=== PATIENT | female | born 1970 | race African-American/Black ===

== ENCOUNTER 2020-06-23 13:06 | Inpatient (IN) ==
[2020-06-23] MEDS ORDERED: ONDANSETRON 4 MG/2 ML VIAL IV STA (14:35)
[2020-06-23] MEDS ORDERED: HYDROmorphone 2 MG/1 ML VIAL IV STA (14:35)
[2020-06-23] MEDS ORDERED: PIPERACILLIN/TAZOBACTAM 3,375 MG in SODIUM CHLORIDE 0.9% 100 ML IV STA (14:35)
[2020-06-23 15:02] LABS: Basophils # 0.1 10*3/uL (0.0-0.2); Basophils % 0.4 % (0.0-0.8); Eosinophils # 0.1 10*3/uL (0.0-0.87); Eosinophils % 0.6 % (0.00-10.9); Hematocrit 28.1 VOL% (35.7-47.0); Hemoglobin 9.5 GM/DL (12.0-16.0); Immature Granulocytes % 0.3 %; Immature Granulocytes Absolute 0.04 #; Lymphocytes # 2.2 10*3/uL (1.4-4.0); Lymphocytes % 17.7 % (21.3-54.2); Mean Corpuscular HGB Conc 33.8 GM/DL (32-36); Mean Corpuscular Volume 87.8 FL (87-102); Mean Platelet Volume 9.8 FL (9.6-12.0); Monocytes % 4.9 % (1.7-12.7); Neutrophils % 76.1 % (38.7-73.9); Platelet Count 291 T/CUMM (130-400); Red Cell Distribution Width 12.6 % (9.3-17.3); White Blood Count 12.6 T/CUMM (4-12)
[2020-06-23 15:16] LABS: Calcium 8.3 MG/DL (8.5-10.1); Osmolality,Calculated 288.7 MOS/KG (273-304); Potassium 3.8 MMOL/L (3.5-5.1)
[2020-06-23] MEDS ORDERED: INSULIN LISPRO 100 UNIT/ML SUBCUT STA (15:21)
[2020-06-23] MEDS ORDERED: ZALEPLON 5 MG CAPSULE PO PRN (15:36)
[2020-06-23] MEDS ORDERED: GLUCAGON 1 MG VIAL IM PRN (15:36)
[2020-06-23] MEDS ORDERED: DEXTROSE 50% 25 GM/50 ML VIAL IV PRN (15:36)
[2020-06-23] MEDS ORDERED: ONDANSETRON 4 MG/2 ML VIAL IV PRN (15:36)
[2020-06-23] MEDS ORDERED: ENOXAPARIN 40 MG/0.4 ML SYRINGE SUBCUT SCH (16:00)
[2020-06-23] MEDS: HYDROmorphone 2 MG/1 ML VIAL IV PRN ×2 (18:09→22:05)
[2020-06-23] MEDS: INSULIN REGULAR 100 UNIT/ML SUBCUT SCH ×2 (18:35→21:09)
[2020-06-23] MEDS: PIPERACILLIN/TAZOBACTAM 3,375 MG in SODIUM CHLORIDE 0.9% 100 ML IV SCH (22:05)
[2020-06-24] MEDS: HYDROmorphone 2 MG/1 ML VIAL IV PRN ×7 (02:47→19:34)
[2020-06-24 05:32] LABS: Basophils # 0.1 10*3/uL (0.0-0.2); Basophils % 0.5 % (0.0-0.8); Eosinophils # 0.2 10*3/uL (0.0-0.87); Eosinophils % 1.5 % (0.00-10.9); Hematocrit 30.6 VOL% (35.7-47.0); Immature Granulocytes % 0.4 %; Immature Granulocytes Absolute 0.04 #; Lymphocytes # 3.1 10*3/uL (1.4-4.0); Lymphocytes % 28.9 % (21.3-54.2); Mean Corpuscular HGB Conc 32.7 GM/DL (32-36); Mean Corpuscular Volume 90.3 FL (87-102); Mean Platelet Volume 9.5 FL (9.6-12.0); Neutrophils % 61.7 % (38.7-73.9); Platelet Count 309 T/CUMM (130-400); Red Blood Count 3.39 MC/CUMM (3.8-5.5); Red Cell Distribution Width 12.7 % (9.3-17.3); White Blood Count 10.8 T/CUMM (4-12)
[2020-06-24 05:52] LABS: Hypochromasia 1+; Microcytosis 1+; Platelet Estimate Adequate
[2020-06-24 05:59] LABS: Albumin 2.1 G/DL (3.4-5.0); Bilirubin,Total 0.7 MG/DL (0.2-1.0); Calcium 8.8 MG/DL (8.5-10.1); Osmolality,Calculated 274.8 MOS/KG (273-304); Potassium 3.8 MMOL/L (3.5-5.1); Total Protein 7.4 G/DL (6.4-8.2)
[2020-06-24] MEDS: PIPERACILLIN/TAZOBACTAM 3,375 MG in SODIUM CHLORIDE 0.9% 100 ML IV SCH ×2 (05:59→15:22)
[2020-06-24] MEDS: INSULIN REGULAR 100 UNIT/ML SUBCUT SCH ×4 (08:06→21:49)
[2020-06-24] MEDS ORDERED: VANCOMYCIN INJ 1,000 MG in SODIUM CHLORIDE 0.9% 250 ML IV SCH (08:30)
[2020-06-24] MEDS ORDERED: BACLOFEN 10 MG TABLET PO PRN (10:18)
[2020-06-24] MEDS ORDERED: ALBUTEROL 2.5 MG/3 ML NEB RESP TX PRN (10:18)
[2020-06-24] MEDS: VANCOMYCIN INJ 1,750 MG in SODIUM CHLORIDE 0.9% 500 ML IV SCH ×2 (10:18→21:50)
[2020-06-24] MEDS ORDERED: fentaNYL 100 MCG/2 ML VIAL ONE (12:11)
[2020-06-24] MEDS ORDERED: LIDOCAINE 2% 5 ML VIAL ONE (12:21)
[2020-06-24] MEDS ORDERED: MIDAZOLAM 2 MG/2 ML VIAL ONE (12:22)
[2020-06-24] MEDS ORDERED: LACTATED RINGERS 1,000 ML IV SCH (12:30)
[2020-06-24] MEDS ORDERED: PHENYLEPHRINE 1 MG/10 ML SYRINGE IV ONE (12:31)
[2020-06-24] MEDS ORDERED: ONDANSETRON 4 MG/2 ML VIAL ONE (12:31)
[2020-06-24] MEDS ORDERED: propofoL 200 MG/20 ML VIAL IV ONE (12:31)
[2020-06-24] MEDS ORDERED: SEVOFLURANE 1 UNIT/15 MINUTE INH ONE (12:31)
[2020-06-24] MEDS ORDERED: DEXTROSE 50% 25 GM/50 ML VIAL IV PRN (13:34)
[2020-06-24] MEDS ORDERED: ONDANSETRON 4 MG/2 ML VIAL IV PRN (13:36)
[2020-06-24] MEDS: PREGABALIN 100 MG CAPSULE PO SCH ×2 (15:21→21:48)
[2020-06-24] MEDS: FUROSEMIDE 40 MG TABLET PO SCH (15:22)
[2020-06-24] MEDS ORDERED: ENOXAPARIN 40 MG/0.4 ML SYRINGE SUBCUT SCH (21:00)
[2020-06-24] MEDS ORDERED: INSULIN GLARGINE 100 UNIT/ML SUBCUT SCH (21:00)
[2020-06-24] MEDS: tiZANidine 4 MG TABLET PO SCH (21:48)
[2020-06-24] MEDS: INSULIN GLARGINE 100 UNIT/ML SUBCUT SCH (21:50)
[2020-06-25] MEDS: PIPERACILLIN/TAZOBACTAM 3,375 MG in SODIUM CHLORIDE 0.9% 100 ML IV SCH ×2 (02:05→11:09)
[2020-06-25] MEDS: HYDROmorphone 2 MG/1 ML VIAL IV PRN ×4 (05:25→20:00)
[2020-06-25 05:43] LABS: Basophils % 0.4 % (0.0-0.8); Eosinophils # 0.2 10*3/uL (0.0-0.87); Eosinophils % 1.5 % (0.00-10.9); Hematocrit 28.6 VOL% (35.7-47.0); Hemoglobin 8.9 GM/DL (12.0-16.0); Immature Granulocytes % 0.7 %; Immature Granulocytes Absolute 0.07 #; Lymphocytes # 2.7 10*3/uL (1.4-4.0); Lymphocytes % 26.5 % (21.3-54.2); Mean Corpuscular HGB Conc 31.1 GM/DL (32-36); Mean Corpuscular Volume 92.3 FL (87-102); Mean Platelet Volume 9.4 FL (9.6-12.0); Monocytes % 6.3 % (1.7-12.7); Neutrophils % 64.6 % (38.7-73.9); Platelet Count 251 T/CUMM (130-400); Red Cell Distribution Width 13.1 % (9.3-17.3); White Blood Count 10.1 T/CUMM (4-12)
[2020-06-25 06:01] LABS: Calcium 8.4 MG/DL (8.5-10.1); Osmolality,Calculated 276.7 MOS/KG (273-304)
[2020-06-25 06:15] LABS: Eosinophils 1 % (0-10); Hypochromasia Slight; Lymphocytes 27 % (20-55); Platelet Estimate Normal; Segmented Neutrophils 66 % (50-85); Total Cells Counted 100
[2020-06-25] MEDS: INSULIN REGULAR 100 UNIT/ML SUBCUT SCH ×4 (07:50→21:12)
[2020-06-25] MEDS: FUROSEMIDE 40 MG TABLET PO SCH ×2 (09:48→16:45)
[2020-06-25] MEDS: PANTOPRAZOLE 40 MG TABLET PO SCH (09:48)
[2020-06-25] MEDS: PREGABALIN 100 MG CAPSULE PO SCH ×3 (09:49→21:12)
[2020-06-25] MEDS: LIDOCAINE 5% PATCH TRANSDERM SCH (09:51)
[2020-06-25] MEDS: SODIUM HYPOCHLORITE 0.25% IRRIG 473 ML BOTTLE TOP SCH (11:08)
[2020-06-25] MEDS ORDERED: DEXTROSE 50% 25 GM/50 ML VIAL IV PRN (11:40)
[2020-06-25] MEDS: MEROPENEM 500 MG in SODIUM CHLORIDE 0.9% 100 ML IV SCH (17:09)
[2020-06-25] MEDS: VANCOMYCIN INJ 1,750 MG in SODIUM CHLORIDE 0.9% 500 ML IV SCH (17:12)
[2020-06-25] MEDS ORDERED: BISACODYL 5 MG TABLET PO PRN (19:37)
[2020-06-25] MEDS: DOCUSATE SODIUM 100 MG CAPSULE PO SCH (21:11)
[2020-06-25] MEDS: tiZANidine 4 MG TABLET PO SCH (21:12)
[2020-06-25] MEDS: INSULIN GLARGINE 100 UNIT/ML SUBCUT SCH (21:13)
[2020-06-25] MEDS: NYSTATIN CREAM 15 GM TUBE TOP SCH (21:17)
[2020-06-26] MEDS: MEROPENEM 500 MG in SODIUM CHLORIDE 0.9% 100 ML IV SCH ×5 (00:16→23:46)
[2020-06-26] MEDS: HYDROmorphone 2 MG/1 ML VIAL IV PRN ×8 (05:14→23:53)
[2020-06-26 05:27] LABS: Basophils % 0.4 % (0.0-0.8); Eosinophils # 0.2 10*3/uL (0.0-0.87); Eosinophils % 2.7 % (0.00-10.9); Hematocrit 27.2 VOL% (35.7-47.0); Immature Granulocytes % 0.3 %; Immature Granulocytes Absolute 0.02 #; Lymphocytes # 2.5 10*3/uL (1.4-4.0); Lymphocytes % 33.2 % (21.3-54.2); Mean Corpuscular HGB Conc 33.1 GM/DL (32-36); Mean Corpuscular Volume 89.5 FL (87-102); Mean Platelet Volume 9.4 FL (9.6-12.0); Monocytes % 9.2 % (1.7-12.7); Neutrophils % 54.2 % (38.7-73.9); Platelet Count 205 T/CUMM (130-400); Red Blood Count 3.04 MC/CUMM (3.8-5.5); Red Cell Distribution Width 13.2 % (9.3-17.3); White Blood Count 7.4 T/CUMM (4-12)
[2020-06-26 05:45] LABS: Calcium 7.9 MG/DL (8.5-10.1); Osmolality,Calculated 277.1 MOS/KG (273-304); Potassium 3.9 MMOL/L (3.5-5.1)
[2020-06-26 06:10] LABS: Hypochromasia Slight
[2020-06-26 06:11] LABS: Microcytosis 1+; Platelet Estimate Normal
[2020-06-26] MEDS ORDERED: INSULIN NPH 100 UNIT/ML SUBCUT ONE (06:16)
[2020-06-26] MEDS: PANTOPRAZOLE 40 MG TABLET PO SCH (09:17)
[2020-06-26] MEDS: PREGABALIN 100 MG CAPSULE PO SCH ×3 (09:17→21:13)
[2020-06-26] MEDS: DOCUSATE SODIUM 100 MG CAPSULE PO SCH ×2 (09:18→21:13)
[2020-06-26] MEDS: ENOXAPARIN 40 MG/0.4 ML SYRINGE SUBCUT SCH (09:18)
[2020-06-26] MEDS: FUROSEMIDE 40 MG TABLET PO SCH ×2 (09:18→16:47)
[2020-06-26] MEDS: SODIUM HYPOCHLORITE 0.25% IRRIG 473 ML BOTTLE TOP SCH (09:19)
[2020-06-26] MEDS: NYSTATIN CREAM 15 GM TUBE TOP SCH ×2 (09:20→21:15)
[2020-06-26] MEDS: LIDOCAINE 5% PATCH TRANSDERM SCH (09:20)
[2020-06-26] MEDS: INSULIN REGULAR 100 UNIT/ML SUBCUT SCH ×4 (09:59→21:14)
[2020-06-26] MEDS: tiZANidine 4 MG TABLET PO SCH (21:13)
[2020-06-26] MEDS: INSULIN GLARGINE 100 UNIT/ML SUBCUT SCH (21:14)
[2020-06-26] MEDS: POLYETHYLENE GLYCOL POWDER 17 GM PACK PO SCH (21:15)
[2020-06-27] MEDS: HYDROmorphone 2 MG/1 ML VIAL IV PRN ×6 (05:07→21:39)
[2020-06-27] MEDS: MEROPENEM 500 MG in SODIUM CHLORIDE 0.9% 100 ML IV SCH ×4 (05:07→22:14)
[2020-06-27 06:45] LABS: Basophils % 0.5 % (0.0-0.8); Eosinophils # 0.2 10*3/uL (0.0-0.87); Eosinophils % 2.9 % (0.00-10.9); Hematocrit 30.7 VOL% (35.7-47.0); Hemoglobin 9.8 GM/DL (12.0-16.0); Immature Granulocytes % 0.2 %; Immature Granulocytes Absolute 0.02 #; Lymphocytes # 3.5 10*3/uL (1.4-4.0); Lymphocytes % 41.1 % (21.3-54.2); Mean Corpuscular HGB Conc 31.9 GM/DL (32-36); Mean Corpuscular Volume 90.6 FL (87-102); Mean Platelet Volume 9.7 FL (9.6-12.0); Monocytes % 7.9 % (1.7-12.7); Neutrophils % 47.4 % (38.7-73.9); Platelet Count 248 T/CUMM (130-400); Red Blood Count 3.39 MC/CUMM (3.8-5.5); Red Cell Distribution Width 13.4 % (9.3-17.3); White Blood Count 8.4 T/CUMM (4-12)
[2020-06-27 07:02] LABS: Calcium 8.5 MG/DL (8.5-10.1); Osmolality,Calculated 273.2 MOS/KG (273-304); Potassium 3.5 MMOL/L (3.5-5.1)
[2020-06-27 07:16] LABS: Hypochromasia 1+; Microcytosis 1+; Platelet Estimate Normal
[2020-06-27] MEDS: INSULIN REGULAR 100 UNIT/ML SUBCUT SCH ×4 (08:24→21:38)
[2020-06-27] MEDS: PREGABALIN 100 MG CAPSULE PO SCH ×3 (08:26→21:37)
[2020-06-27] MEDS: SODIUM HYPOCHLORITE 0.25% IRRIG 473 ML BOTTLE TOP SCH (08:26)
[2020-06-27] MEDS: CHOLECALCIFEROL 1,000 UNIT TABLET PO SCH (08:26)
[2020-06-27] MEDS: ENOXAPARIN 40 MG/0.4 ML SYRINGE SUBCUT SCH (08:26)
[2020-06-27] MEDS: FUROSEMIDE 40 MG TABLET PO SCH ×2 (08:26→15:24)
[2020-06-27] MEDS: PANTOPRAZOLE 40 MG TABLET PO SCH (08:26)
[2020-06-27] MEDS: DOCUSATE SODIUM 100 MG CAPSULE PO SCH ×2 (08:26→21:37)
[2020-06-27] MEDS: POLYETHYLENE GLYCOL POWDER 17 GM PACK PO SCH ×2 (08:27→21:40)
[2020-06-27] MEDS: NYSTATIN CREAM 15 GM TUBE TOP SCH ×2 (08:27→21:40)
[2020-06-27] MEDS: LIDOCAINE 5% PATCH TRANSDERM SCH (08:27)
[2020-06-27] MEDS: tiZANidine 4 MG TABLET PO SCH (21:37)
[2020-06-27] MEDS: INSULIN GLARGINE 100 UNIT/ML SUBCUT SCH (21:38)
[2020-06-28] MEDS: HYDROmorphone 2 MG/1 ML VIAL IV PRN ×5 (01:13→21:36)
[2020-06-28 05:32] LABS: Basophils # 0.1 10*3/uL (0.0-0.2); Basophils % 0.6 % (0.0-0.8); Eosinophils # 0.3 10*3/uL (0.0-0.87); Eosinophils % 3.5 % (0.00-10.9); Hematocrit 27.1 VOL% (35.7-47.0); Hemoglobin 8.7 GM/DL (12.0-16.0); Immature Granulocytes % 0.2 %; Immature Granulocytes Absolute 0.02 #; Lymphocytes # 3.4 10*3/uL (1.4-4.0); Lymphocytes % 41.5 % (21.3-54.2); Mean Corpuscular HGB Conc 32.1 GM/DL (32-36); Mean Corpuscular Volume 92.2 FL (87-102); Mean Platelet Volume 9.7 FL (9.6-12.0); Monocytes % 9.6 % (1.7-12.7); Neutrophils % 44.6 % (38.7-73.9); Platelet Count 267 T/CUMM (130-400); Red Blood Count 2.94 MC/CUMM (3.8-5.5); Red Cell Distribution Width 13.6 % (9.3-17.3); White Blood Count 8.2 T/CUMM (4-12)
[2020-06-28] MEDS: MEROPENEM 500 MG in SODIUM CHLORIDE 0.9% 100 ML IV SCH ×4 (05:42→22:23)
[2020-06-28 05:50] LABS: Calcium 8.3 MG/DL (8.5-10.1); Potassium 3.9 MMOL/L (3.5-5.1)
[2020-06-28] MEDS: PANTOPRAZOLE 40 MG TABLET PO SCH (08:45)
[2020-06-28] MEDS: DOCUSATE SODIUM 100 MG CAPSULE PO SCH ×2 (08:45→21:35)
[2020-06-28] MEDS: FUROSEMIDE 40 MG TABLET PO SCH ×2 (08:45→15:29)
[2020-06-28] MEDS: CHOLECALCIFEROL 1,000 UNIT TABLET PO SCH (08:45)
[2020-06-28] MEDS: INSULIN REGULAR 100 UNIT/ML SUBCUT SCH ×4 (08:45→21:36)
[2020-06-28] MEDS: PREGABALIN 100 MG CAPSULE PO SCH ×3 (08:45→21:35)
[2020-06-28] MEDS: ENOXAPARIN 40 MG/0.4 ML SYRINGE SUBCUT SCH (08:45)
[2020-06-28] MEDS: POLYETHYLENE GLYCOL POWDER 17 GM PACK PO SCH ×2 (08:46→21:22)
[2020-06-28] MEDS: LIDOCAINE 5% PATCH TRANSDERM SCH (08:46)
[2020-06-28] MEDS: NYSTATIN CREAM 15 GM TUBE TOP SCH ×2 (08:46→21:37)
[2020-06-28] MEDS: SODIUM HYPOCHLORITE 0.25% IRRIG 473 ML BOTTLE TOP SCH (08:46)
[2020-06-28] MEDS ORDERED: METOPROLOL TARTRATE 5 MG/5 ML VIAL IV ONE (09:34)
[2020-06-28 10:36] LABS: Eosinophils 4 % (0-10); Lymphocytes 37 % (20-55); Platelet Estimate Normal; Segmented Neutrophils 48 % (50-85); Total Cells Counted 100
[2020-06-28 10:37] LABS: Anisocytosis Slight; Atypical Lymphocytes Few; Macrocytosis Slight
[2020-06-28] MEDS: carvediloL 3.125 MG TABLET PO SCH (21:35)
[2020-06-28] MEDS: tiZANidine 4 MG TABLET PO SCH (21:35)
[2020-06-28] MEDS: INSULIN GLARGINE 100 UNIT/ML SUBCUT SCH (21:35)
[2020-06-29] MEDS: HYDROmorphone 2 MG/1 ML VIAL IV PRN ×3 (04:37→21:22)
[2020-06-29] MEDS: MEROPENEM 500 MG in SODIUM CHLORIDE 0.9% 100 ML IV SCH ×4 (04:38→23:54)
[2020-06-29 05:12] LABS: Basophils % 0.4 % (0.0-0.8); Eosinophils # 0.3 10*3/uL (0.0-0.87); Hematocrit 24.8 VOL% (35.7-47.0); Hemoglobin 8.2 GM/DL (12.0-16.0); Immature Granulocytes % 0.6 %; Immature Granulocytes Absolute 0.04 #; Lymphocytes # 2.7 10*3/uL (1.4-4.0); Mean Corpuscular HGB Conc 33.1 GM/DL (32-36); Mean Corpuscular Volume 90.5 FL (87-102); Monocytes % 10.2 % (1.7-12.7); Neutrophils % 44.8 % (38.7-73.9); Platelet Count 291 T/CUMM (130-400); Red Blood Count 2.74 MC/CUMM (3.8-5.5); Red Cell Distribution Width 13.7 % (9.3-17.3); White Blood Count 6.7 T/CUMM (4-12)
[2020-06-29 05:39] LABS: Calcium 8.1 MG/DL (8.5-10.1); Osmolality,Calculated 283.5 MOS/KG (273-304); Potassium 3.7 MMOL/L (3.5-5.1)
[2020-06-29 06:42] LABS: Band Neutrophils 1 % (0-10); Eosinophils 5 % (0-10); Lymphocytes 41 % (20-55); Platelet Estimate Normal; Segmented Neutrophils 46 % (50-85); Total Cells Counted 100
[2020-06-29 06:43] LABS: Anisocytosis Slight; Macrocytosis Slight
[2020-06-29] MEDS: LIDOCAINE 5% PATCH TRANSDERM SCH (09:10)
[2020-06-29] MEDS: INSULIN REGULAR 100 UNIT/ML SUBCUT SCH ×4 (09:12→22:54)
[2020-06-29] MEDS: ENOXAPARIN 40 MG/0.4 ML SYRINGE SUBCUT SCH (09:13)
[2020-06-29] MEDS: PANTOPRAZOLE 40 MG TABLET PO SCH (09:14)
[2020-06-29] MEDS: POLYETHYLENE GLYCOL POWDER 17 GM PACK PO SCH ×2 (09:14→21:03)
[2020-06-29] MEDS: CHOLECALCIFEROL 1,000 UNIT TABLET PO SCH (09:14)
[2020-06-29] MEDS: DOCUSATE SODIUM 100 MG CAPSULE PO SCH ×2 (09:14→21:02)
[2020-06-29] MEDS: carvediloL 3.125 MG TABLET PO SCH ×2 (09:14→21:02)
[2020-06-29] MEDS: FUROSEMIDE 40 MG TABLET PO SCH (09:15)
[2020-06-29] MEDS: PREGABALIN 100 MG CAPSULE PO SCH ×3 (09:15→21:02)
[2020-06-29] MEDS: NYSTATIN CREAM 15 GM TUBE TOP SCH ×2 (09:17→21:21)
[2020-06-29] MEDS: SODIUM HYPOCHLORITE 0.25% IRRIG 473 ML BOTTLE TOP SCH (09:17)
[2020-06-29] MEDS ORDERED: FUROSEMIDE 20 MG/2 ML VIAL IV ONE ×2 (09:22)
[2020-06-29] MEDS ORDERED: ACETAMINOPHEN 325 MG TABLET PO PRN (09:24)
[2020-06-29] MEDS: POTASSIUM CHLORIDE 20 MEQ TABLET PO SCH (21:02)
[2020-06-29] MEDS: tiZANidine 4 MG TABLET PO SCH (21:03)
[2020-06-29] MEDS: INSULIN GLARGINE 100 UNIT/ML SUBCUT SCH (21:21)
[2020-06-30] MEDS: HYDROmorphone 2 MG/1 ML VIAL IV PRN (05:19)
[2020-06-30] MEDS: MEROPENEM 500 MG in SODIUM CHLORIDE 0.9% 100 ML IV SCH ×2 (05:20→12:23)
[2020-06-30 06:10] LABS: Basophils # 0.1 10*3/uL (0.0-0.2); Basophils % 0.7 % (0.0-0.8); Eosinophils # 0.4 10*3/uL (0.0-0.87); Eosinophils % 4.7 % (0.00-10.9); Hemoglobin 8.6 GM/DL (12.0-16.0); Immature Granulocytes % 0.3 %; Immature Granulocytes Absolute 0.02 #; Lymphocytes # 3.6 10*3/uL (1.4-4.0); Lymphocytes % 48.2 % (21.3-54.2); Mean Corpuscular HGB Conc 31.9 GM/DL (32-36); Mean Corpuscular Volume 92.8 FL (87-102); Mean Platelet Volume 9.6 FL (9.6-12.0); Monocytes % 9.7 % (1.7-12.7); Neutrophils % 36.4 % (38.7-73.9); Platelet Count 372 T/CUMM (130-400); Red Blood Count 2.91 MC/CUMM (3.8-5.5); White Blood Count 7.4 T/CUMM (4-12)
[2020-06-30 06:39] LABS: Calcium 8.5 MG/DL (8.5-10.1); Osmolality,Calculated 277.5 MOS/KG (273-304); Potassium 3.8 MMOL/L (3.5-5.1)
[2020-06-30 06:42] LABS: Eosinophils 7 % (0-10); Hypochromasia 1+; Lymphocytes 56 % (20-55); Microcytosis 1+; Platelet Estimate Adequate; Segmented Neutrophils 35 % (50-85); Total Cells Counted 100
[2020-06-30 07:19] LABS: Bilirubin,Urine Negative (Negative); Blood, Urine Negative (Negative); Glucose,Urine (UA) Negative (Negative); Ketones,Urine Negative (Negative); Mucus,Urine Occasional /LPF (Occasional); Nitrite,Urine Negative (Negative); Protein,Urine Negative; RBC,Urine 5 /HPF (0-4); Squamous Epithelial Cell,Urine Moderate /HPF (0-10); Urine Appearance Slightly Hazy (Clear); Urine Color Yellow (Yellow); Urine Specific Gravity 1.012 (1.001-1.035); Urine Urobilinogen < 2.0 EU/DL (0.2-1.0)
[2020-06-30] MEDS: INSULIN REGULAR 100 UNIT/ML SUBCUT SCH ×2 (08:49→12:40)
[2020-06-30] MEDS ORDERED: carvediloL 3.125 MG TABLET PO SCH (09:00)
[2020-06-30] MEDS: FUROSEMIDE 40 MG TABLET PO SCH (09:26)
[2020-06-30] MEDS: CHOLECALCIFEROL 1,000 UNIT TABLET PO SCH (09:26)
[2020-06-30] MEDS: ENOXAPARIN 40 MG/0.4 ML SYRINGE SUBCUT SCH (09:27)
[2020-06-30] MEDS: POTASSIUM CHLORIDE 20 MEQ TABLET PO SCH (09:27)
[2020-06-30] MEDS: PREGABALIN 100 MG CAPSULE PO SCH ×2 (09:27→14:29)
[2020-06-30] MEDS: DOCUSATE SODIUM 100 MG CAPSULE PO SCH (09:27)
[2020-06-30] MEDS: PANTOPRAZOLE 40 MG TABLET PO SCH (09:27)
[2020-06-30] MEDS: LIDOCAINE 5% PATCH TRANSDERM SCH (09:29)
[2020-06-30] MEDS: SODIUM HYPOCHLORITE 0.25% IRRIG 473 ML BOTTLE TOP SCH (09:30)
[2020-06-30] MEDS: POLYETHYLENE GLYCOL POWDER 17 GM PACK PO SCH (09:31)
[2020-06-30 12:44] VITALS: BP 131/43
[2020-06-30] MEDS: NYSTATIN CREAM 15 GM TUBE TOP SCH (14:30)
== END 2020-06-30 16:50 | DRG 305 ==
LOC: N.ED 13:06 → N.EDINP 15:36 → SUATTDRO 15:36 → N.3E 16:30
PROVIDERS: ADMIT Student in an Organized Health Care Education/Training Program; ATTEND Internal Medicine

== ENCOUNTER 2020-07-29 07:33 | Inpatient (IN) ==
[2020-07-29] MEDS ORDERED: ONDANSETRON 4 MG/2 ML VIAL IV STA (08:10)
[2020-07-29 08:38] LABS: Bacteria,Urine Occasional /HPF (Few); Bilirubin,Urine Negative (Negative); Blood, Urine Negative (Negative); Glucose,Urine (UA) >=500 mg/dL (Negative); Ketones,Urine 20 mg/dL (Negative); Mucus,Urine Occasional /LPF (Occasional); Nitrite,Urine Negative (Negative); Protein,Urine 100 MG/DL; RBC,Urine 3 /HPF (0-4); Squamous Epithelial Cell,Urine Many /HPF (0-10); Urine Appearance CLOUDY (Clear); Urine Color Yellow (Yellow); Urine Specific Gravity 1.033 (1.001-1.035)
[2020-07-29] MEDS ORDERED: DILTIAZEM 50 MG/10 ML VIAL IV STA (08:48)
[2020-07-29] MEDS ORDERED: MAGNESIUM SULF RIDER 2 GM/50 ML PREMIX IV STA (08:49)
[2020-07-29 09:08] LABS: Basophils % 0.2 % (0.0-0.8); Hematocrit 27.8 VOL% (35.7-47.0); Hemoglobin 8.9 GM/DL (12.0-16.0); Immature Granulocytes % 1.1 %; Immature Granulocytes Absolute 0.26 #; Lymphocytes # 1.8 10*3/uL (1.4-4.0); Lymphocytes % 7.8 % (21.3-54.2); Mean Corpuscular Volume 85.3 FL (87-102); Mean Platelet Volume 9.1 FL (9.6-12.0); Monocytes % 6.5 % (1.7-12.7); Neutrophils % 84.4 % (38.7-73.9); Platelet Count 623 T/CUMM (130-400); Red Blood Count 3.26 MC/CUMM (3.8-5.5); Red Cell Distribution Width 13.1 % (9.3-17.3); White Blood Count 23.1 T/CUMM (4-12)
[2020-07-29] MEDS: DILTIAZEM INJ 100 MG in SODIUM CHLORIDE 0.9% 100 ML IV SCH (09:19)
[2020-07-29 09:23] LABS: Eosinophils 1 % (0-10); Hypochromasia 1+; Lymphocytes 9 % (20-55); Microcytosis 1+; Platelet Estimate Increased; Segmented Neutrophils 84 % (50-85); Total Cells Counted 100
[2020-07-29 09:31] LABS: Albumin 2.1 G/DL (3.4-5.0); Bilirubin,Total 0.5 MG/DL (0.2-1.0); Calcium 9.1 MG/DL (8.5-10.1); Osmolality,Calculated 276.8 MOS/KG (273-304); Potassium 3.5 MMOL/L (3.5-5.1); Total Protein 8.5 G/DL (6.4-8.2)
[2020-07-29] MEDS ORDERED: KETOROLAC 30 MG/1 ML VIAL IV STA (09:57)
[2020-07-29] MEDS ORDERED: KETOROLAC 30 MG/1 ML VIAL ONE (09:58)
[2020-07-29] MEDS ORDERED: GLUCAGON 1 MG VIAL IM PRN (12:52)
[2020-07-29] MEDS ORDERED: MAGNESIUM SULF RIDER 4 GM/100 ML PREMIX IV PRN (12:52)
[2020-07-29] MEDS ORDERED: MAGNESIUM SULF RIDER 2 GM/50 ML PREMIX IV PRN (12:52)
[2020-07-29] MEDS ORDERED: DEXTROSE 50% 25 GM/50 ML VIAL IV PRN (12:52)
[2020-07-29] MEDS ORDERED: DICLOFENAC 1% GEL 100 GM TUBE TOP PRN (12:54)
[2020-07-29] MEDS ORDERED: PIPERACILLIN/TAZOBACTAM 3,375 MG VIAL IV ONE (16:36)
[2020-07-29] MEDS: PIPERACILLIN/TAZOBACTAM 3,375 MG in SODIUM CHLORIDE 0.9% 100 ML IV SCH (16:59)
[2020-07-29] MEDS ORDERED: ALBUTEROL 2.5 MG/3 ML NEB RESP TX PRN (17:42)
[2020-07-29] MEDS: INSULIN REGULAR 100 UNIT/ML SUBCUT SCH ×2 (18:22→21:38)
[2020-07-29] MEDS: carvediloL 3.125 MG TABLET PO SCH (21:25)
[2020-07-29] MEDS: PREGABALIN 100 MG CAPSULE PO SCH (21:25)
[2020-07-29] MEDS: PANTOPRAZOLE 40 MG TABLET PO SCH (21:26)
[2020-07-29] MEDS: POTASSIUM CHLORIDE 20 MEQ TABLET PO SCH (21:26)
[2020-07-29] MEDS: tiZANidine 4 MG TABLET PO SCH (21:26)
[2020-07-29] MEDS: FUROSEMIDE 40 MG TABLET PO SCH (21:27)
[2020-07-29] MEDS: INSULIN GLARGINE 100 UNIT/ML SUBCUT SCH (21:38)
[2020-07-30] MEDS: PIPERACILLIN/TAZOBACTAM 3,375 MG in SODIUM CHLORIDE 0.9% 100 ML IV SCH ×2 (00:14→06:08)
[2020-07-30 05:22] LABS: Basophils # 0.1 10*3/uL (0.0-0.2); Basophils % 0.3 % (0.0-0.8); Eosinophils # 0.2 10*3/uL (0.0-0.87); Eosinophils % 0.8 % (0.00-10.9); Hematocrit 24.7 VOL% (35.7-47.0); Hemoglobin 8.1 GM/DL (12.0-16.0); Immature Granulocytes % 0.8 %; Immature Granulocytes Absolute 0.17 #; Lymphocytes # 1.9 10*3/uL (1.4-4.0); Lymphocytes % 9.1 % (21.3-54.2); Mean Corpuscular HGB Conc 32.8 GM/DL (32-36); Mean Corpuscular Volume 85.5 FL (87-102); Mean Platelet Volume 9.3 FL (9.6-12.0); Monocytes % 6.2 % (1.7-12.7); Neutrophils % 82.8 % (38.7-73.9); Platelet Count 590 T/CUMM (130-400); Red Blood Count 2.89 MC/CUMM (3.8-5.5); Red Cell Distribution Width 13.2 % (9.3-17.3); White Blood Count 20.5 T/CUMM (4-12)
[2020-07-30 05:29] LABS: Albumin 1.8 G/DL (3.4-5.0); Bilirubin,Total 0.9 MG/DL (0.2-1.0); Calcium 8.6 MG/DL (8.5-10.1); Osmolality,Calculated 283.1 MOS/KG (273-304); Potassium 3.2 MMOL/L (3.5-5.1); Total Protein 7.4 G/DL (6.4-8.2)
[2020-07-30] MEDS: SODIUM CHLORIDE 0.9% 1,000 ML IV SCH ×2 (05:43→17:07)
[2020-07-30 05:49] LABS: Band Neutrophils 1 % (0-10); Hypochromasia 1+; Lymphocytes 13 % (20-55); Segmented Neutrophils 84 % (50-85); Total Cells Counted 100
[2020-07-30 05:50] LABS: Microcytosis 1+
[2020-07-30] MEDS: POTASSIUM CHLORIDE 20 MEQ TABLET PO PRN ×2 (06:08→18:16)
[2020-07-30] MEDS: POTASSIUM CHLORIDE 20 MEQ TABLET PO SCH ×2 (09:30→22:00)
[2020-07-30] MEDS: PREGABALIN 100 MG CAPSULE PO SCH ×3 (09:30→21:58)
[2020-07-30] MEDS: FUROSEMIDE 40 MG TABLET PO SCH (09:31)
[2020-07-30] MEDS: PANTOPRAZOLE 40 MG TABLET PO SCH ×2 (09:31→21:58)
[2020-07-30] MEDS: carvediloL 3.125 MG TABLET PO SCH ×2 (09:31→21:56)
[2020-07-30] MEDS: INSULIN REGULAR 100 UNIT/ML SUBCUT SCH ×4 (09:32→22:32)
[2020-07-30] MEDS: INSULIN GLARGINE 100 UNIT/ML SUBCUT SCH ×2 (09:33→22:34)
[2020-07-30] MEDS ORDERED: ENOXAPARIN 120 MG/0.8 ML SYRINGE SUBCUT ONE (14:51)
[2020-07-30] MEDS: SODIUM HYPOCHLORITE 0.25% IRRIG 473 ML BOTTLE TOP SCH (15:19)
[2020-07-30 15:41] LABS: Basophils % 0.2 % (0.0-0.8); Eosinophils # 0.2 10*3/uL (0.0-0.87); Hematocrit 26.7 VOL% (35.7-47.0); Hemoglobin 8.4 GM/DL (12.0-16.0); Immature Granulocytes % 1.1 %; Immature Granulocytes Absolute 0.24 #; Lymphocytes # 2.2 10*3/uL (1.4-4.0); Lymphocytes % 9.8 % (21.3-54.2); Mean Corpuscular HGB Conc 31.5 GM/DL (32-36); Mean Corpuscular Volume 86.7 FL (87-102); Mean Platelet Volume 9.2 FL (9.6-12.0); Monocytes % 5.8 % (1.7-12.7); Neutrophils % 82.1 % (38.7-73.9); Platelet Count 644 T/CUMM (130-400); Red Blood Count 3.08 MC/CUMM (3.8-5.5); Red Cell Distribution Width 13.2 % (9.3-17.3); White Blood Count 22.7 T/CUMM (4-12)
[2020-07-30 16:04] LABS: Lymphocytes 12 % (20-55); Segmented Neutrophils 83 % (50-85); Total Cells Counted 100
[2020-07-30 16:06] LABS: Anisocytosis Slight; Platelet Estimate Adequate
[2020-07-30] MEDS: MEROPENEM 500 MG in SODIUM CHLORIDE 0.9% 100 ML IV SCH ×2 (16:57→22:08)
[2020-07-30] MEDS: DILTIAZEM INJ 100 MG in SODIUM CHLORIDE 0.9% 100 ML IV SCH (17:08)
[2020-07-30] MEDS: tiZANidine 4 MG TABLET PO SCH (21:56)
[2020-07-30] MEDS ORDERED: NALOXONE 0.4 MG/ML VIAL IV ONE (22:43)
[2020-07-30] MEDS ORDERED: SODIUM CHLORIDE 0.9% 250 ML IV ONE (23:21)
[2020-07-30 23:30] LABS: Basophils # 0.1 10*3/uL (0.0-0.2); Basophils % 0.2 % (0.0-0.8); Eosinophils # 0.2 10*3/uL (0.0-0.87); Hematocrit 22.7 VOL% (35.7-47.0); Hemoglobin 7.3 GM/DL (12.0-16.0); Immature Granulocytes % 1.2 %; Immature Granulocytes Absolute 0.29 #; Lymphocytes # 3.2 10*3/uL (1.4-4.0); Lymphocytes % 13.9 % (21.3-54.2); Mean Corpuscular HGB Conc 32.2 GM/DL (32-36); Mean Corpuscular Volume 85.7 FL (87-102); Mean Platelet Volume 9.2 FL (9.6-12.0); Monocytes % 5.8 % (1.7-12.7); Neutrophils % 77.9 % (38.7-73.9); Platelet Count 583 T/CUMM (130-400); Red Blood Count 2.65 MC/CUMM (3.8-5.5); Red Cell Distribution Width 13.2 % (9.3-17.3); White Blood Count 23.2 T/CUMM (4-12)
[2020-07-30 23:38] LABS: INR 1.1; PT Patient Result 12.6 SECS (10.5-12.0); Partial Thromboplastin Time 32.2 SECS (23.9-33.8)
[2020-07-30 23:48] LABS: Albumin 1.7 G/DL (3.4-5.0); Bilirubin,Total 0.4 MG/DL (0.2-1.0); Calcium 8.1 MG/DL (8.5-10.1); Osmolality,Calculated 267.4 MOS/KG (273-304); Potassium 3.4 MMOL/L (3.5-5.1); Total Protein 6.8 G/DL (6.4-8.2)
[2020-07-30] MEDS: POTASSIUM CHLORIDE RIDER 10 MEQ/100 ML PREMIX IV PRN (23:57)
[2020-07-31] MEDS: SODIUM CHLORIDE 0.9% 1,000 ML IV SCH ×4 (00:04→17:50)
[2020-07-31] MEDS: POTASSIUM CHLORIDE RIDER 10 MEQ/100 ML PREMIX IV PRN ×2 (00:54→02:09)
[2020-07-31 02:20] LABS: Lymphocytes 15 % (20-55); Segmented Neutrophils 81 % (50-85); Total Cells Counted 100
[2020-07-31 02:21] LABS: Microcytosis 1+; Polychromasia Slight
[2020-07-31] MEDS: MEROPENEM 500 MG in SODIUM CHLORIDE 0.9% 100 ML IV SCH ×2 (03:02→17:49)
[2020-07-31 06:39] LABS: Basophils # 0.1 10*3/uL (0.0-0.2); Basophils % 0.2 % (0.0-0.8); Eosinophils # 0.3 10*3/uL (0.0-0.87); Eosinophils % 1.2 % (0.00-10.9); Hematocrit 22.9 VOL% (35.7-47.0); Hemoglobin 7.2 GM/DL (12.0-16.0); Immature Granulocytes % 1.2 %; Immature Granulocytes Absolute 0.27 #; Lymphocytes % 13.2 % (21.3-54.2); Mean Corpuscular HGB Conc 31.4 GM/DL (32-36); Mean Corpuscular Volume 87.7 FL (87-102); Mean Platelet Volume 9.3 FL (9.6-12.0); Monocytes % 6.5 % (1.7-12.7); Neutrophils % 77.7 % (38.7-73.9); Platelet Count 559 T/CUMM (130-400); Red Blood Count 2.61 MC/CUMM (3.8-5.5); Red Cell Distribution Width 13.3 % (9.3-17.3); White Blood Count 22.6 T/CUMM (4-12)
[2020-07-31 07:03] LABS: Band Neutrophils 1 % (0-10); Eosinophils 2 % (0-10); Hypochromasia 1+; Lymphocytes 13 % (20-55); Microcytosis 1+; Platelet Estimate Increased; Segmented Neutrophils 79 % (50-85); Total Cells Counted 100
[2020-07-31 07:08] LABS: Albumin 1.6 G/DL (3.4-5.0); Bilirubin,Total 0.5 MG/DL (0.2-1.0); Calcium 8.1 MG/DL (8.5-10.1); Osmolality,Calculated 270.1 MOS/KG (273-304); Potassium 3.8 MMOL/L (3.5-5.1); Total Protein 6.8 G/DL (6.4-8.2)
[2020-07-31 07:09] LABS: Risk Ratio 2.85
[2020-07-31] MEDS: SODIUM HYPOCHLORITE 0.25% IRRIG 473 ML BOTTLE TOP SCH (07:10)
[2020-07-31] MEDS: INSULIN REGULAR 100 UNIT/ML SUBCUT SCH ×4 (08:22→21:35)
[2020-07-31] MEDS: DILTIAZEM INJ 100 MG in SODIUM CHLORIDE 0.9% 100 ML IV SCH (08:22)
[2020-07-31] MEDS: INSULIN GLARGINE 100 UNIT/ML SUBCUT SCH ×2 (08:23→21:36)
[2020-07-31] MEDS ORDERED: LIDOCAINE 1% 20 ML VIAL ONE (09:49)
[2020-07-31] MEDS ORDERED: propofoL 200 MG/20 ML VIAL IV ONE (11:09)
[2020-07-31] MEDS ORDERED: fentaNYL 100 MCG/2 ML VIAL ONE (11:09)
[2020-07-31] MEDS ORDERED: DEXMEDETOMIDINE 200 MCG/2 ML VIAL ONE (11:09)
[2020-07-31] MEDS ORDERED: LIDOCAINE 2% 5 ML VIAL ONE (11:09)
[2020-07-31] MEDS ORDERED: KETAMINE 500 MG/10 ML VIAL ONE (11:10)
[2020-07-31] MEDS ORDERED: MIDAZOLAM 2 MG/2 ML VIAL ONE (11:10)
[2020-07-31] MEDS: PREGABALIN 100 MG CAPSULE PO SCH ×3 (11:30→20:30)
[2020-07-31] MEDS: carvediloL 3.125 MG TABLET PO SCH ×2 (12:10→20:31)
[2020-07-31] MEDS: PANTOPRAZOLE 40 MG TABLET PO SCH ×2 (14:22→20:30)
[2020-07-31] MEDS: POTASSIUM CHLORIDE 20 MEQ TABLET PO SCH ×2 (14:26→20:30)
[2020-07-31] MEDS: MULTIVITAMIN (CENTRUM) TABLET PO SCH (14:26)
[2020-07-31 14:47] LABS: Basophils # 0.1 10*3/uL (0.0-0.2); Basophils % 0.2 % (0.0-0.8); Eosinophils # 0.2 10*3/uL (0.0-0.87); Eosinophils % 0.6 % (0.00-10.9); Hematocrit 28.1 VOL% (35.7-47.0); Hemoglobin 8.9 GM/DL (12.0-16.0); Immature Granulocytes % 0.8 %; Immature Granulocytes Absolute 0.22 #; Lymphocytes # 1.9 10*3/uL (1.4-4.0); Lymphocytes % 6.9 % (21.3-54.2); Mean Corpuscular HGB Conc 31.7 GM/DL (32-36); Mean Corpuscular Volume 88.1 FL (87-102); Mean Platelet Volume 9.3 FL (9.6-12.0); Monocytes % 5.8 % (1.7-12.7); Neutrophils % 85.7 % (38.7-73.9); Platelet Count 635 T/CUMM (130-400); Red Blood Count 3.19 MC/CUMM (3.8-5.5); Red Cell Distribution Width 13.4 % (9.3-17.3); White Blood Count 27.9 T/CUMM (4-12)
[2020-07-31 14:47] LABS: Barbiturates Screen,Urine Negative (Negative); Benzodiazepines Screen,Urine Positive (Negative); Cannabinoid Screen,Urine Negative (Negative); Opiate Screen,Urine Positive (Negative); Phencyclidine Screen,Urine Negative (Negative)
[2020-07-31 15:28] LABS: Band Neutrophils 2 % (0-10); Eosinophils 1 % (0-10); Lymphocytes 5 % (20-55); Segmented Neutrophils 88 % (50-85); Total Cells Counted 100
[2020-07-31 15:30] LABS: Hypochromasia 1+; Microcytosis 1+; Platelet Estimate Increased
[2020-07-31] MEDS ORDERED: HALOPERIDOL 5 MG/ML AMP IM PRN (21:00)
[2020-07-31] MEDS: tiZANidine 4 MG TABLET PO SCH (21:36)
[2020-08-01] MEDS: MEROPENEM 500 MG in SODIUM CHLORIDE 0.9% 100 ML IV SCH ×2 (03:09→15:30)
[2020-08-01] MEDS: SODIUM CHLORIDE 0.9% 1,000 ML IV SCH ×2 (03:14→05:49)
[2020-08-01 05:31] LABS: Basophils % 0.2 % (0.0-0.8); Eosinophils # 0.2 10*3/uL (0.0-0.87); Eosinophils % 1.1 % (0.00-10.9); Hematocrit 20.9 VOL% (35.7-47.0); Immature Granulocytes % 1.3 %; Immature Granulocytes Absolute 0.27 #; Lymphocytes # 2.7 10*3/uL (1.4-4.0); Lymphocytes % 12.7 % (21.3-54.2); Mean Corpuscular HGB Conc 31.6 GM/DL (32-36); Mean Corpuscular Volume 86.4 FL (87-102); Mean Platelet Volume 9.2 FL (9.6-12.0); Monocytes % 7.8 % (1.7-12.7); Neutrophils % 76.9 % (38.7-73.9); Platelet Count 526 T/CUMM (130-400); Red Blood Count 2.42 MC/CUMM (3.8-5.5); Red Cell Distribution Width 13.7 % (9.3-17.3); White Blood Count 21.3 T/CUMM (4-12)
[2020-08-01 05:32] LABS: Hemoglobin 6.6 GM/DL (12.0-16.0)
[2020-08-01 05:37] LABS: Eosinophils 1 % (0-10); Lymphocytes 13 % (20-55); Segmented Neutrophils 82 % (50-85); Total Cells Counted 100
[2020-08-01 05:38] LABS: Hypochromasia 2+; Microcytosis 1+; Platelet Estimate Increased
[2020-08-01 05:46] LABS: Albumin 1.4 G/DL (3.4-5.0); Bilirubin,Total 0.4 MG/DL (0.2-1.0); Osmolality,Calculated 276.2 MOS/KG (273-304); Potassium 3.8 MMOL/L (3.5-5.1); Total Protein 6.2 G/DL (6.4-8.2)
[2020-08-01] MEDS ORDERED: SODIUM CHLORIDE 0.9% 1,000 ML IV PRN (07:40)
[2020-08-01] MEDS: DILTIAZEM INJ 100 MG in SODIUM CHLORIDE 0.9% 100 ML IV SCH (08:15)
[2020-08-01] MEDS: PANTOPRAZOLE 40 MG TABLET PO SCH ×2 (08:23→20:22)
[2020-08-01] MEDS: PREGABALIN 100 MG CAPSULE PO SCH ×3 (08:23→20:22)
[2020-08-01] MEDS: MULTIVITAMIN (CENTRUM) TABLET PO SCH (08:23)
[2020-08-01] MEDS: POTASSIUM CHLORIDE 20 MEQ TABLET PO SCH ×2 (08:23→20:21)
[2020-08-01] MEDS: carvediloL 3.125 MG TABLET PO SCH ×2 (08:24→20:20)
[2020-08-01] MEDS: INSULIN REGULAR 100 UNIT/ML SUBCUT SCH ×4 (08:25→20:21)
[2020-08-01] MEDS: INSULIN GLARGINE 100 UNIT/ML SUBCUT SCH ×2 (08:25→20:22)
[2020-08-01] MEDS: SODIUM HYPOCHLORITE 0.25% IRRIG 473 ML BOTTLE TOP SCH (09:29)
[2020-08-01] MEDS: tiZANidine 4 MG TABLET PO SCH (20:21)
[2020-08-01 20:31] LABS: Hematocrit 26.3 VOL% (35.7-47.0); Hemoglobin 8.4 GM/DL (12.0-16.0)
[2020-08-02] MEDS: MEROPENEM 500 MG in SODIUM CHLORIDE 0.9% 100 ML IV SCH ×2 (04:30→15:36)
[2020-08-02] MEDS: SODIUM CHLORIDE 0.9% 1,000 ML IV SCH ×3 (04:30→13:30)
[2020-08-02 06:53] LABS: Basophils # 0.1 10*3/uL (0.0-0.2); Basophils % 0.2 % (0.0-0.8); Eosinophils # 0.3 10*3/uL (0.0-0.87); Eosinophils % 1.4 % (0.00-10.9); Hematocrit 26.6 VOL% (35.7-47.0); Hemoglobin 8.5 GM/DL (12.0-16.0); Immature Granulocytes Absolute 0.22 #; Lymphocytes # 3.9 10*3/uL (1.4-4.0); Lymphocytes % 18.6 % (21.3-54.2); Mean Corpuscular Volume 87.5 FL (87-102); Mean Platelet Volume 8.9 FL (9.6-12.0); Monocytes % 7.7 % (1.7-12.7); Neutrophils % 71.1 % (38.7-73.9); Platelet Count 651 T/CUMM (130-400); Red Cell Distribution Width 14.1 % (9.3-17.3); White Blood Count 21.2 T/CUMM (4-12)
[2020-08-02 07:01] LABS: Red Blood Count 3.04 MC/CUMM (3.8-5.5)
[2020-08-02 07:07] LABS: Albumin 1.5 G/DL (3.4-5.0); Bilirubin,Total 0.5 MG/DL (0.2-1.0); Calcium 8.2 MG/DL (8.5-10.1); Osmolality,Calculated 275.7 MOS/KG (273-304); Potassium 4.4 MMOL/L (3.5-5.1); Total Protein 7.1 G/DL (6.4-8.2)
[2020-08-02 07:29] LABS: Band Neutrophils 1 % (0-10); Eosinophils 1 % (0-10); Lymphocytes 20 % (20-55); Segmented Neutrophils 69 % (50-85); Total Cells Counted 100
[2020-08-02 07:30] LABS: Hypochromasia 1+; Microcytosis 1+; Platelet Estimate Increased
[2020-08-02] MEDS: INSULIN REGULAR 100 UNIT/ML SUBCUT SCH ×4 (08:15→22:06)
[2020-08-02] MEDS: PREGABALIN 100 MG CAPSULE PO SCH ×3 (09:36→21:07)
[2020-08-02] MEDS: PANTOPRAZOLE 40 MG TABLET PO SCH ×2 (09:36→21:07)
[2020-08-02] MEDS: MULTIVITAMIN (CENTRUM) TABLET PO SCH (09:36)
[2020-08-02] MEDS: POTASSIUM CHLORIDE 20 MEQ TABLET PO SCH ×2 (09:36→21:06)
[2020-08-02] MEDS: carvediloL 3.125 MG TABLET PO SCH ×2 (09:37→21:06)
[2020-08-02] MEDS: SODIUM HYPOCHLORITE 0.25% IRRIG 473 ML BOTTLE TOP SCH (09:39)
[2020-08-02] MEDS: INSULIN GLARGINE 100 UNIT/ML SUBCUT SCH ×2 (09:40→22:06)
[2020-08-02] MEDS: DILTIAZEM INJ 100 MG in SODIUM CHLORIDE 0.9% 100 ML IV SCH (09:49)
[2020-08-02] MEDS: HYDROmorphone 2 MG/1 ML VIAL IV PRN (12:12)
[2020-08-02] MEDS: SKIN HEALING OINT (AQUAPHOR) 50 GM TUBE TOP PRN (14:23)
[2020-08-02] MEDS: tiZANidine 4 MG TABLET PO SCH (21:07)
[2020-08-03] MEDS: HYDROmorphone 2 MG/1 ML VIAL IV PRN ×2 (04:18→21:27)
[2020-08-03] MEDS: MEROPENEM 500 MG in SODIUM CHLORIDE 0.9% 100 ML IV SCH ×2 (04:21→16:17)
[2020-08-03 05:24] LABS: Basophils # 0.1 10*3/uL (0.0-0.2); Basophils % 0.3 % (0.0-0.8); Eosinophils # 0.2 10*3/uL (0.0-0.87); Hematocrit 26.8 VOL% (35.7-47.0); Hemoglobin 8.8 GM/DL (12.0-16.0); Immature Granulocytes % 1.2 %; Immature Granulocytes Absolute 0.23 #; Lymphocytes # 3.4 10*3/uL (1.4-4.0); Lymphocytes % 18.1 % (21.3-54.2); Mean Corpuscular HGB Conc 32.8 GM/DL (32-36); Monocytes % 9.3 % (1.7-12.7); NRBC # 0.02 10*3/uL; Neutrophils % 70.1 % (38.7-73.9); Platelet Count 609 T/CUMM (130-400); Red Blood Count 3.08 MC/CUMM (3.8-5.5); Red Cell Distribution Width 14.8 % (9.3-17.3); White Blood Count 18.7 T/CUMM (4-12)
[2020-08-03 05:59] LABS: Albumin 1.5 G/DL (3.4-5.0); Calcium 8.2 MG/DL (8.5-10.1); Osmolality,Calculated 273.5 MOS/KG (273-304); Potassium 4.1 MMOL/L (3.5-5.1); Total Protein 6.8 G/DL (6.4-8.2)
[2020-08-03] MEDS ORDERED: LACTULOSE 20 GM/30 ML UDCUP PO ONE (07:14)
[2020-08-03] MEDS: INSULIN REGULAR 100 UNIT/ML SUBCUT SCH ×4 (08:23→21:25)
[2020-08-03] MEDS: PREGABALIN 100 MG CAPSULE PO SCH ×3 (09:10→21:20)
[2020-08-03] MEDS: POTASSIUM CHLORIDE 20 MEQ TABLET PO SCH ×2 (09:10→21:20)
[2020-08-03] MEDS: PANTOPRAZOLE 40 MG TABLET PO SCH ×2 (09:10→21:20)
[2020-08-03] MEDS: carvediloL 3.125 MG TABLET PO SCH ×2 (09:10→21:34)
[2020-08-03] MEDS: MULTIVITAMIN (CENTRUM) TABLET PO SCH (09:10)
[2020-08-03] MEDS: SODIUM HYPOCHLORITE 0.25% IRRIG 473 ML BOTTLE TOP SCH (09:11)
[2020-08-03] MEDS: INSULIN GLARGINE 100 UNIT/ML SUBCUT SCH ×2 (09:11→21:25)
[2020-08-03] MEDS: DILTIAZEM INJ 100 MG in SODIUM CHLORIDE 0.9% 100 ML IV SCH (09:11)
[2020-08-03] MEDS ORDERED: HYDROmorphone 2 MG/1 ML VIAL IV ONE (12:29)
[2020-08-03] MEDS: SODIUM CHLORIDE 0.9% 1,000 ML IV SCH ×2 (16:18→16:24)
[2020-08-03] MEDS: tiZANidine 4 MG TABLET PO SCH (21:20)
[2020-08-04] MEDS: MEROPENEM 500 MG in SODIUM CHLORIDE 0.9% 100 ML IV SCH ×2 (03:12→15:25)
[2020-08-04 04:03] LABS: Basophils # 0.1 10*3/uL (0.0-0.2); Basophils % 0.4 % (0.0-0.8); Eosinophils # 0.3 10*3/uL (0.0-0.87); Hematocrit 27.6 VOL% (35.7-47.0); Hemoglobin 8.9 GM/DL (12.0-16.0); Immature Granulocytes % 1.4 %; Immature Granulocytes Absolute 0.23 #; Lymphocytes # 3.6 10*3/uL (1.4-4.0); Lymphocytes % 22.1 % (21.3-54.2); Mean Corpuscular HGB Conc 32.2 GM/DL (32-36); Mean Corpuscular Volume 86.5 FL (87-102); Mean Platelet Volume 8.9 FL (9.6-12.0); NRBC # 0.03 10*3/uL; Neutrophils % 65.1 % (38.7-73.9); Platelet Count 572 T/CUMM (130-400); Red Blood Count 3.19 MC/CUMM (3.8-5.5); Red Cell Distribution Width 14.6 % (9.3-17.3); White Blood Count 16.3 T/CUMM (4-12)
[2020-08-04 04:23] LABS: Albumin 1.5 G/DL (3.4-5.0); Bilirubin,Total 0.4 MG/DL (0.2-1.0); Calcium 8.2 MG/DL (8.5-10.1); Potassium 4.3 MMOL/L (3.5-5.1); Total Protein 7.1 G/DL (6.4-8.2)
[2020-08-04] MEDS: INSULIN REGULAR 100 UNIT/ML SUBCUT SCH ×3 (09:14→16:40)
[2020-08-04] MEDS: DILTIAZEM INJ 100 MG in SODIUM CHLORIDE 0.9% 100 ML IV SCH (09:14)
[2020-08-04] MEDS: PANTOPRAZOLE 40 MG TABLET PO SCH ×2 (09:40→23:23)
[2020-08-04] MEDS: POTASSIUM CHLORIDE 20 MEQ TABLET PO SCH ×2 (09:40→23:27)
[2020-08-04] MEDS: INSULIN GLARGINE 100 UNIT/ML SUBCUT SCH ×2 (09:40→23:25)
[2020-08-04] MEDS: MULTIVITAMIN (CENTRUM) TABLET PO SCH (09:40)
[2020-08-04] MEDS: PREGABALIN 100 MG CAPSULE PO SCH ×3 (09:40→23:21)
[2020-08-04] MEDS: carvediloL 3.125 MG TABLET PO SCH ×2 (09:41→23:21)
[2020-08-04] MEDS: SODIUM CHLORIDE 0.9% 1,000 ML IV SCH (11:40)
[2020-08-04] MEDS: SODIUM HYPOCHLORITE 0.25% IRRIG 473 ML BOTTLE TOP SCH (12:09)
[2020-08-04] MEDS: HYDROmorphone 2 MG/1 ML VIAL IV PRN (12:09)
[2020-08-04] MEDS: tiZANidine 4 MG TABLET PO SCH (23:23)
[2020-08-05] MEDS: HYDROmorphone 2 MG/1 ML VIAL IV PRN ×2 (00:51→12:59)
[2020-08-05] MEDS: MEROPENEM 500 MG in SODIUM CHLORIDE 0.9% 100 ML IV SCH ×2 (03:53→16:00)
[2020-08-05 05:55] LABS: Basophils # 0.1 10*3/uL (0.0-0.2); Basophils % 0.4 % (0.0-0.8); Eosinophils # 0.3 10*3/uL (0.0-0.87); Hematocrit 28.4 VOL% (35.7-47.0); Immature Granulocytes % 1.3 %; Immature Granulocytes Absolute 0.19 #; Lymphocytes # 3.1 10*3/uL (1.4-4.0); Lymphocytes % 21.2 % (21.3-54.2); Mean Corpuscular HGB Conc 31.7 GM/DL (32-36); Mean Corpuscular Volume 88.2 FL (87-102); Mean Platelet Volume 9.8 FL (9.6-12.0); Monocytes % 8.5 % (1.7-12.7); Neutrophils % 66.6 % (38.7-73.9); Platelet Count 494 T/CUMM (130-400); Red Blood Count 3.22 MC/CUMM (3.8-5.5); Red Cell Distribution Width 14.8 % (9.3-17.3); White Blood Count 14.5 T/CUMM (4-12)
[2020-08-05 06:38] LABS: Calcium 8.6 MG/DL (8.5-10.1); Potassium 4.2 MMOL/L (3.5-5.1)
[2020-08-05] MEDS: INSULIN REGULAR 100 UNIT/ML SUBCUT SCH ×5 (07:30→23:42)
[2020-08-05] MEDS: DILTIAZEM INJ 100 MG in SODIUM CHLORIDE 0.9% 100 ML IV SCH (09:10)
[2020-08-05] MEDS: POLYETHYLENE GLYCOL POWDER 17 GM PACK PO SCH (09:48)
[2020-08-05] MEDS: carvediloL 3.125 MG TABLET PO SCH ×2 (09:48→22:52)
[2020-08-05] MEDS: MULTIVITAMIN (CENTRUM) TABLET PO SCH (09:48)
[2020-08-05] MEDS: PREGABALIN 100 MG CAPSULE PO SCH ×3 (09:48→22:53)
[2020-08-05] MEDS: PANTOPRAZOLE 40 MG TABLET PO SCH ×2 (09:48→22:55)
[2020-08-05] MEDS: POTASSIUM CHLORIDE 20 MEQ TABLET PO SCH ×2 (09:48→22:58)
[2020-08-05] MEDS: SODIUM HYPOCHLORITE 0.25% IRRIG 473 ML BOTTLE TOP SCH (09:49)
[2020-08-05] MEDS: INSULIN GLARGINE 100 UNIT/ML SUBCUT SCH ×2 (10:31→23:42)
[2020-08-05] MEDS: VANCOMYCIN INJ 2,000 MG in SODIUM CHLORIDE 0.9% 500 ML IV SCH (12:46)
[2020-08-05] MEDS: SILVER SULFADIAZINE 1% CREAM 25 GM TUBE TOP SCH (16:00)
[2020-08-05] MEDS: SODIUM CHLORIDE 0.9% 1,000 ML IV SCH (19:24)
[2020-08-05] MEDS: tiZANidine 4 MG TABLET PO SCH (22:53)
[2020-08-06] MEDS: HYDROmorphone 2 MG/1 ML VIAL IV PRN ×5 (01:10→14:55)
[2020-08-06] MEDS: VANCOMYCIN INJ 2,000 MG in SODIUM CHLORIDE 0.9% 500 ML IV SCH ×3 (01:11→22:04)
[2020-08-06] MEDS: MEROPENEM 500 MG in SODIUM CHLORIDE 0.9% 100 ML IV SCH ×2 (03:55→14:55)
[2020-08-06] MEDS: SODIUM CHLORIDE 0.9% 1,000 ML IV SCH ×2 (04:09→23:46)
[2020-08-06] MEDS ORDERED: LACTATED RINGERS 1,000 ML IV SCH (07:30)
[2020-08-06] MEDS: INSULIN REGULAR 100 UNIT/ML SUBCUT SCH ×4 (07:43→20:39)
[2020-08-06] MEDS ORDERED: BUPIVACAINE MPF 0.25% 30 ML VIAL ONE (08:00)
[2020-08-06] MEDS ORDERED: LIDOCAINE 1% 20 ML VIAL ONE (08:01)
[2020-08-06] MEDS ORDERED: propofoL 200 MG/20 ML VIAL IV ONE (08:13)
[2020-08-06] MEDS ORDERED: LIDOCAINE 2% 5 ML VIAL ONE (08:13)
[2020-08-06] MEDS ORDERED: SEVOFLURANE 1 UNIT/15 MINUTE INH ONE (08:13)
[2020-08-06] MEDS ORDERED: fentaNYL 100 MCG/2 ML VIAL ONE (08:13)
[2020-08-06] MEDS ORDERED: ONDANSETRON 4 MG/2 ML VIAL ONE ×2 (08:13→09:28)
[2020-08-06] MEDS: DILTIAZEM INJ 100 MG in SODIUM CHLORIDE 0.9% 100 ML IV SCH (09:23)
[2020-08-06] MEDS ORDERED: ONDANSETRON 4 MG/2 ML VIAL IV PRN (09:29)
[2020-08-06] MEDS ORDERED: MORPHINE 10 MG/1 ML VIAL IV ONE ×2 (09:46→09:51)
[2020-08-06] MEDS ORDERED: MORPHINE 10 MG/1 ML VIAL ONE (09:49)
[2020-08-06] MEDS ORDERED: diphenhydrAMINE 50 MG/1 ML VIAL ONE (10:07)
[2020-08-06] MEDS ORDERED: diphenhydrAMINE 50 MG/1 ML VIAL IV ONE ×2 (10:11→10:16)
[2020-08-06] MEDS: SODIUM HYPOCHLORITE 0.25% IRRIG 473 ML BOTTLE TOP SCH (10:36)
[2020-08-06] MEDS: SILVER SULFADIAZINE 1% CREAM 25 GM TUBE TOP SCH (10:36)
[2020-08-06] MEDS: MULTIVITAMIN (CENTRUM) TABLET PO SCH (10:45)
[2020-08-06] MEDS: carvediloL 3.125 MG TABLET PO SCH ×2 (10:45→20:38)
[2020-08-06] MEDS: POTASSIUM CHLORIDE 20 MEQ TABLET PO SCH ×2 (10:45→20:38)
[2020-08-06] MEDS: PANTOPRAZOLE 40 MG TABLET PO SCH ×2 (10:46→20:38)
[2020-08-06] MEDS: INSULIN GLARGINE 100 UNIT/ML SUBCUT SCH ×2 (10:46→20:39)
[2020-08-06] MEDS: PREGABALIN 100 MG CAPSULE PO SCH ×3 (10:46→20:38)
[2020-08-06] MEDS: POLYETHYLENE GLYCOL POWDER 17 GM PACK PO SCH (10:46)
[2020-08-06] MEDS: tiZANidine 4 MG TABLET PO SCH (20:40)
[2020-08-07] MEDS: MEROPENEM 500 MG in SODIUM CHLORIDE 0.9% 100 ML IV SCH ×2 (02:12→15:48)
[2020-08-07] MEDS: HYDROmorphone 2 MG/1 ML VIAL IV PRN ×3 (02:47→21:16)
[2020-08-07 06:11] LABS: Basophils # 0.1 10*3/uL (0.0-0.2); Basophils % 0.5 % (0.0-0.8); Eosinophils # 0.3 10*3/uL (0.0-0.87); Hematocrit 24.8 VOL% (35.7-47.0); Hemoglobin 7.6 GM/DL (12.0-16.0); Immature Granulocytes % 0.7 %; Immature Granulocytes Absolute 0.09 #; Lymphocytes # 3.2 10*3/uL (1.4-4.0); Lymphocytes % 25.7 % (21.3-54.2); Mean Corpuscular HGB Conc 30.6 GM/DL (32-36); Mean Corpuscular Volume 90.5 FL (87-102); Mean Platelet Volume 9.2 FL (9.6-12.0); Monocytes % 7.3 % (1.7-12.7); Neutrophils % 63.8 % (38.7-73.9); Platelet Count 436 T/CUMM (130-400); Red Blood Count 2.74 MC/CUMM (3.8-5.5); Red Cell Distribution Width 14.9 % (9.3-17.3); White Blood Count 12.4 T/CUMM (4-12)
[2020-08-07 06:33] LABS: Albumin 1.4 G/DL (3.4-5.0); Bilirubin,Direct 0.12 MG/DL (0.0-0.20); Bilirubin,Indirect 0.5 MG/DL (0.0-1.0); Bilirubin,Total 0.6 MG/DL (0.2-1.0); Osmolality,Calculated 277.8 MOS/KG (273-304); Potassium 4.3 MMOL/L (3.5-5.1); Total Protein 6.5 G/DL (6.4-8.2)
[2020-08-07 06:36] LABS: Eosinophils 2 % (0-10); Hypochromasia 2+; Lymphocytes 20 % (20-55); Microcytosis 1+; Platelet Estimate Adequate; Segmented Neutrophils 67 % (50-85); Total Cells Counted 100
[2020-08-07] MEDS: carvediloL 3.125 MG TABLET PO SCH ×2 (09:01→20:24)
[2020-08-07] MEDS: MULTIVITAMIN (CENTRUM) TABLET PO SCH (09:01)
[2020-08-07] MEDS: PANTOPRAZOLE 40 MG TABLET PO SCH ×2 (09:01→20:24)
[2020-08-07] MEDS: POTASSIUM CHLORIDE 20 MEQ TABLET PO SCH ×2 (09:01→20:24)
[2020-08-07] MEDS: PREGABALIN 100 MG CAPSULE PO SCH ×3 (09:02→20:23)
[2020-08-07] MEDS: INSULIN GLARGINE 100 UNIT/ML SUBCUT SCH ×2 (09:02→20:24)
[2020-08-07] MEDS: POLYETHYLENE GLYCOL POWDER 17 GM PACK PO SCH (09:03)
[2020-08-07] MEDS: INSULIN REGULAR 100 UNIT/ML SUBCUT SCH ×4 (09:03→20:24)
[2020-08-07] MEDS: DILTIAZEM INJ 100 MG in SODIUM CHLORIDE 0.9% 100 ML IV SCH (09:10)
[2020-08-07] MEDS: SODIUM HYPOCHLORITE 0.25% IRRIG 473 ML BOTTLE TOP SCH (10:10)
[2020-08-07] MEDS: SILVER SULFADIAZINE 1% CREAM 25 GM TUBE TOP SCH (10:10)
[2020-08-07] MEDS: VANCOMYCIN INJ 2,000 MG in SODIUM CHLORIDE 0.9% 500 ML IV SCH (10:11)
[2020-08-07 10:17] LABS: Hematocrit 27.2 VOL% (35.7-47.0); Hemoglobin 8.4 GM/DL (12.0-16.0)
[2020-08-07] MEDS ORDERED: HYDROmorphone 2 MG/1 ML VIAL IV ONE (10:25)
[2020-08-07] MEDS ORDERED: NALOXONE 0.4 MG/ML VIAL IV PRN (10:27)
[2020-08-07] MEDS ORDERED: SODIUM PHOSPHATE ENEMA 133 ML BOTTLE RECTAL ONE (15:50)
[2020-08-07] MEDS: SODIUM CHLORIDE 0.9% 1,000 ML IV SCH (19:33)
[2020-08-07] MEDS: tiZANidine 4 MG TABLET PO SCH (20:23)
[2020-08-08] MEDS: MEROPENEM 500 MG in SODIUM CHLORIDE 0.9% 100 ML IV SCH ×2 (02:00→15:03)
[2020-08-08] MEDS: HYDROmorphone 2 MG/1 ML VIAL IV PRN ×3 (03:39→22:13)
[2020-08-08 05:01] LABS: Basophils # 0.1 10*3/uL (0.0-0.2); Basophils % 0.5 % (0.0-0.8); Eosinophils # 0.3 10*3/uL (0.0-0.87); Eosinophils % 2.7 % (0.00-10.9); Hematocrit 23.9 VOL% (35.7-47.0); Hemoglobin 7.4 GM/DL (12.0-16.0); Immature Granulocytes % 0.6 %; Immature Granulocytes Absolute 0.07 #; Lymphocytes # 3.3 10*3/uL (1.4-4.0); Lymphocytes % 29.3 % (21.3-54.2); Mean Corpuscular Volume 90.2 FL (87-102); Monocytes % 6.1 % (1.7-12.7); Neutrophils % 60.8 % (38.7-73.9); Platelet Count 405 T/CUMM (130-400); Red Blood Count 2.65 MC/CUMM (3.8-5.5); Red Cell Distribution Width 14.6 % (9.3-17.3); White Blood Count 11.4 T/CUMM (4-12)
[2020-08-08 05:25] LABS: Eosinophils 3 % (0-10); Hypochromasia 1+; Lymphocytes 30 % (20-55); Segmented Neutrophils 60 % (50-85); Total Cells Counted 100
[2020-08-08 05:26] LABS: Calcium 8.2 MG/DL (8.5-10.1); Microcytosis 1+; Osmolality,Calculated 278.5 MOS/KG (273-304); Potassium 4.1 MMOL/L (3.5-5.1)
[2020-08-08] MEDS: carvediloL 3.125 MG TABLET PO SCH ×2 (08:56→20:21)
[2020-08-08] MEDS: POTASSIUM CHLORIDE 20 MEQ TABLET PO SCH ×2 (08:57→20:20)
[2020-08-08] MEDS: LINACLOTIDE 145 MCG CAPSULE PO SCH (08:57)
[2020-08-08] MEDS: POLYETHYLENE GLYCOL POWDER 17 GM PACK PO SCH (08:57)
[2020-08-08] MEDS: MULTIVITAMIN (CENTRUM) TABLET PO SCH (08:57)
[2020-08-08] MEDS: PREGABALIN 100 MG CAPSULE PO SCH ×3 (08:57→20:20)
[2020-08-08] MEDS: PANTOPRAZOLE 40 MG TABLET PO SCH ×2 (08:57→20:21)
[2020-08-08] MEDS: SODIUM HYPOCHLORITE 0.25% IRRIG 473 ML BOTTLE TOP SCH (08:58)
[2020-08-08] MEDS: INSULIN GLARGINE 100 UNIT/ML SUBCUT SCH ×2 (08:58→20:22)
[2020-08-08] MEDS: DILTIAZEM INJ 100 MG in SODIUM CHLORIDE 0.9% 100 ML IV SCH (09:36)
[2020-08-08] MEDS: INSULIN REGULAR 100 UNIT/ML SUBCUT SCH ×4 (09:53→20:19)
[2020-08-08] MEDS ORDERED: SODIUM CHLORIDE 0.9% 1,000 ML IV PRN (10:43)
[2020-08-08] MEDS ORDERED: FUROSEMIDE 20 MG/2 ML VIAL IV PRN (10:43)
[2020-08-08] MEDS: VANCOMYCIN INJ 2,000 MG in SODIUM CHLORIDE 0.9% 500 ML IV SCH (11:07)
[2020-08-08] MEDS: SILVER SULFADIAZINE 1% CREAM 25 GM TUBE TOP SCH (14:20)
[2020-08-08] MEDS: COLLAGENASE OINT 30 GM TUBE TOP SCH (14:20)
[2020-08-08] MEDS: SODIUM CHLORIDE 0.9% 1,000 ML IV SCH (18:36)
[2020-08-08] MEDS: tiZANidine 4 MG TABLET PO SCH (20:19)
[2020-08-08] MEDS ORDERED: FUROSEMIDE 20 MG/2 ML VIAL IV ONE (21:15)
[2020-08-09] MEDS: MEROPENEM 500 MG in SODIUM CHLORIDE 0.9% 100 ML IV SCH ×2 (03:25→15:37)
[2020-08-09 08:40] LABS: Basophils # 0.1 10*3/uL (0.0-0.2); Basophils % 0.5 % (0.0-0.8); Eosinophils # 0.2 10*3/uL (0.0-0.87); Eosinophils % 1.9 % (0.00-10.9); Immature Granulocytes % 0.3 %; Immature Granulocytes Absolute 0.04 #; Lymphocytes % 24.6 % (21.3-54.2); Mean Corpuscular HGB Conc 31.4 GM/DL (32-36); Mean Corpuscular Volume 89.7 FL (87-102); Mean Platelet Volume 8.8 FL (9.6-12.0); Monocytes % 4.6 % (1.7-12.7); Neutrophils % 68.1 % (38.7-73.9); Platelet Count 431 T/CUMM (130-400); Red Blood Count 3.51 MC/CUMM (3.8-5.5); Red Cell Distribution Width 15.6 % (9.3-17.3); White Blood Count 12.1 T/CUMM (4-12)
[2020-08-09 08:45] LABS: Hematocrit 31.5 VOL% (35.7-47.0); Hemoglobin 9.9 GM/DL (12.0-16.0)
[2020-08-09] MEDS ORDERED: FUROSEMIDE 20 MG/2 ML VIAL IV SCH (09:00)
[2020-08-09 09:07] LABS: Calcium 8.4 MG/DL (8.5-10.1); Osmolality,Calculated 276.4 MOS/KG (273-304); Potassium 4.1 MMOL/L (3.5-5.1)
[2020-08-09 09:19] LABS: Hypochromasia Slight; Platelet Estimate Increased; Polychromasia Slight
[2020-08-09] MEDS: POLYETHYLENE GLYCOL POWDER 17 GM PACK PO SCH (09:28)
[2020-08-09] MEDS: COLLAGENASE OINT 30 GM TUBE TOP SCH (09:29)
[2020-08-09] MEDS: PREGABALIN 100 MG CAPSULE PO SCH ×3 (09:29→20:48)
[2020-08-09] MEDS: PANTOPRAZOLE 40 MG TABLET PO SCH ×2 (09:29→20:48)
[2020-08-09] MEDS: POTASSIUM CHLORIDE 20 MEQ TABLET PO SCH ×2 (09:29→20:48)
[2020-08-09] MEDS: LINACLOTIDE 145 MCG CAPSULE PO SCH (09:29)
[2020-08-09] MEDS: carvediloL 3.125 MG TABLET PO SCH ×2 (09:29→20:47)
[2020-08-09] MEDS: SODIUM HYPOCHLORITE 0.25% IRRIG 473 ML BOTTLE TOP SCH (09:30)
[2020-08-09] MEDS: INSULIN GLARGINE 100 UNIT/ML SUBCUT SCH ×2 (09:30→20:49)
[2020-08-09] MEDS: SILVER SULFADIAZINE 1% CREAM 25 GM TUBE TOP SCH (09:31)
[2020-08-09] MEDS: DILTIAZEM INJ 100 MG in SODIUM CHLORIDE 0.9% 100 ML IV SCH (09:36)
[2020-08-09] MEDS: INSULIN REGULAR 100 UNIT/ML SUBCUT SCH ×4 (09:36→20:49)
[2020-08-09] MEDS: MULTIVITAMIN (CENTRUM) TABLET PO SCH (10:12)
[2020-08-09] MEDS: HYDROmorphone 2 MG/1 ML VIAL IV PRN ×2 (11:32→20:48)
[2020-08-09] MEDS: VANCOMYCIN INJ 2,000 MG in SODIUM CHLORIDE 0.9% 500 ML IV SCH (12:25)
[2020-08-09] MEDS: tiZANidine 4 MG TABLET PO SCH (20:48)
[2020-08-10] MEDS: MEROPENEM 500 MG in SODIUM CHLORIDE 0.9% 100 ML IV SCH ×2 (03:56→19:27)
[2020-08-10] MEDS: HYDROmorphone 2 MG/1 ML VIAL IV PRN ×2 (04:09→21:48)
[2020-08-10 04:55] LABS: Basophils # 0.1 10*3/uL (0.0-0.2); Basophils % 0.5 % (0.0-0.8); Eosinophils # 0.2 10*3/uL (0.0-0.87); Eosinophils % 1.5 % (0.00-10.9); Hematocrit 31.1 VOL% (35.7-47.0); Hemoglobin 9.9 GM/DL (12.0-16.0); Immature Granulocytes % 0.6 %; Immature Granulocytes Absolute 0.08 #; Lymphocytes # 3.7 10*3/uL (1.4-4.0); Lymphocytes % 28.4 % (21.3-54.2); Mean Corpuscular HGB Conc 31.8 GM/DL (32-36); Mean Corpuscular Volume 90.4 FL (87-102); Mean Platelet Volume 9.1 FL (9.6-12.0); Monocytes % 5.8 % (1.7-12.7); Neutrophils % 63.2 % (38.7-73.9); Platelet Count 466 T/CUMM (130-400); Red Blood Count 3.44 MC/CUMM (3.8-5.5); Red Cell Distribution Width 15.9 % (9.3-17.3)
[2020-08-10 05:04] LABS: Calcium 8.2 MG/DL (8.5-10.1); Osmolality,Calculated 276.4 MOS/KG (273-304); Potassium 4.1 MMOL/L (3.5-5.1)
[2020-08-10] MEDS: PANTOPRAZOLE 40 MG TABLET PO SCH ×2 (09:39→21:52)
[2020-08-10] MEDS: PREGABALIN 100 MG CAPSULE PO SCH ×3 (09:39→21:53)
[2020-08-10] MEDS: carvediloL 3.125 MG TABLET PO SCH ×2 (09:39→21:53)
[2020-08-10] MEDS: POLYETHYLENE GLYCOL POWDER 17 GM PACK PO SCH (09:39)
[2020-08-10] MEDS: MULTIVITAMIN (CENTRUM) TABLET PO SCH (09:39)
[2020-08-10] MEDS: SODIUM HYPOCHLORITE 0.25% IRRIG 473 ML BOTTLE TOP SCH (09:40)
[2020-08-10] MEDS: COLLAGENASE OINT 30 GM TUBE TOP SCH (09:40)
[2020-08-10] MEDS: SILVER SULFADIAZINE 1% CREAM 25 GM TUBE TOP SCH (09:41)
[2020-08-10] MEDS: LINACLOTIDE 145 MCG CAPSULE PO SCH (09:45)
[2020-08-10] MEDS: POTASSIUM CHLORIDE 20 MEQ TABLET PO SCH ×2 (09:45→21:56)
[2020-08-10] MEDS: BISACODYL 5 MG TABLET PO SCH ×3 (09:52→23:17)
[2020-08-10] MEDS: INSULIN GLARGINE 100 UNIT/ML SUBCUT SCH ×2 (10:41→23:20)
[2020-08-10] MEDS: INSULIN REGULAR 100 UNIT/ML SUBCUT SCH ×4 (10:41→23:22)
[2020-08-10] MEDS: DILTIAZEM INJ 100 MG in SODIUM CHLORIDE 0.9% 100 ML IV SCH (10:43)
[2020-08-10] MEDS: VANCOMYCIN INJ 2,000 MG in SODIUM CHLORIDE 0.9% 500 ML IV SCH (13:17)
[2020-08-10] MEDS: ONDANSETRON 4 MG/2 ML VIAL IV PRN (21:48)
[2020-08-10] MEDS: tiZANidine 4 MG TABLET PO SCH (21:52)
[2020-08-10] MEDS: SKIN HEALING OINT (AQUAPHOR) 50 GM TUBE TOP PRN (23:18)
[2020-08-11] MEDS ORDERED: MAGNESIUM CITRATE 300 ML BOTTLE PO ONE (04:00)
[2020-08-11 06:49] LABS: Basophils # 0.1 10*3/uL (0.0-0.2); Eosinophils # 0.2 10*3/uL (0.0-0.87); Eosinophils % 2.4 % (0.00-10.9); Hematocrit 32.7 VOL% (35.7-47.0); Hemoglobin 10.6 GM/DL (12.0-16.0); Immature Granulocytes % 0.3 %; Immature Granulocytes Absolute 0.03 #; Lymphocytes % 32.2 % (21.3-54.2); Mean Corpuscular HGB Conc 32.4 GM/DL (32-36); Mean Corpuscular Volume 90.1 FL (87-102); Mean Platelet Volume 8.8 FL (9.6-12.0); Neutrophils % 56.1 % (38.7-73.9); Platelet Count 414 T/CUMM (130-400); Red Blood Count 3.63 MC/CUMM (3.8-5.5); Red Cell Distribution Width 15.7 % (9.3-17.3); White Blood Count 9.2 T/CUMM (4-12)
[2020-08-11 07:01] LABS: Calcium 8.5 MG/DL (8.5-10.1); Osmolality,Calculated 272.7 MOS/KG (273-304); Potassium 3.9 MMOL/L (3.5-5.1)
[2020-08-11] MEDS ORDERED: POLYETHYLENE GLYCOL POWDER 255 GM BOTTLE PO ONE (07:09)
[2020-08-11 07:12] LABS: Eosinophils 3 % (0-10); Hypochromasia 1+; Lymphocytes 29 % (20-55); Microcytosis 1+; Platelet Estimate Adequate; Segmented Neutrophils 64 % (50-85); Total Cells Counted 100
[2020-08-11] MEDS: INSULIN REGULAR 100 UNIT/ML SUBCUT SCH ×3 (08:36→16:08)
[2020-08-11] MEDS: INSULIN GLARGINE 100 UNIT/ML SUBCUT SCH (09:25)
[2020-08-11] MEDS: POLYETHYLENE GLYCOL POWDER 17 GM PACK PO SCH (09:25)
[2020-08-11] MEDS: DILTIAZEM INJ 100 MG in SODIUM CHLORIDE 0.9% 100 ML IV SCH (09:25)
[2020-08-11] MEDS: LINACLOTIDE 145 MCG CAPSULE PO SCH (09:25)
[2020-08-11] MEDS: PREGABALIN 100 MG CAPSULE PO SCH ×2 (09:25→16:12)
[2020-08-11] MEDS: COLLAGENASE OINT 30 GM TUBE TOP SCH (09:26)
[2020-08-11] MEDS: SILVER SULFADIAZINE 1% CREAM 25 GM TUBE TOP SCH (09:26)
[2020-08-11] MEDS: MEROPENEM 500 MG in SODIUM CHLORIDE 0.9% 100 ML IV SCH ×3 (10:26→14:51)
[2020-08-11] MEDS: SODIUM HYPOCHLORITE 0.25% IRRIG 473 ML BOTTLE TOP SCH (10:31)
[2020-08-11] MEDS: HYDROmorphone 2 MG/1 ML VIAL IV PRN ×2 (11:00→16:57)
[2020-08-11] MEDS: VANCOMYCIN INJ 2,000 MG in SODIUM CHLORIDE 0.9% 500 ML IV SCH (12:39)
[2020-08-11] MEDS: POTASSIUM CHLORIDE 20 MEQ TABLET PO SCH (12:39)
[2020-08-11] MEDS: carvediloL 3.125 MG TABLET PO SCH (12:39)
[2020-08-11] MEDS: MULTIVITAMIN (CENTRUM) TABLET PO SCH (12:39)
[2020-08-11] MEDS: PANTOPRAZOLE 40 MG TABLET PO SCH (12:39)
[2020-08-11] MEDS ORDERED: LIDOCAINE 2% 5 ML VIAL ONE (14:47)
[2020-08-11] MEDS ORDERED: propofoL 200 MG/20 ML VIAL IV ONE (14:47)
[2020-08-11] MEDS: ONDANSETRON 4 MG/2 ML VIAL IV PRN (16:57)
[2020-08-12] MEDS: carvediloL 3.125 MG TABLET PO SCH ×2 (00:02→09:23)
[2020-08-12] MEDS: INSULIN GLARGINE 100 UNIT/ML SUBCUT SCH ×2 (00:03→09:24)
[2020-08-12] MEDS: tiZANidine 4 MG TABLET PO SCH (00:03)
[2020-08-12] MEDS: PREGABALIN 100 MG CAPSULE PO SCH ×2 (00:03→09:23)
[2020-08-12] MEDS: POTASSIUM CHLORIDE 20 MEQ TABLET PO SCH ×2 (00:03→09:23)
[2020-08-12] MEDS: PANTOPRAZOLE 40 MG TABLET PO SCH ×2 (00:03→09:23)
[2020-08-12] MEDS: INSULIN REGULAR 100 UNIT/ML SUBCUT SCH ×3 (00:04→12:43)
[2020-08-12 06:24] LABS: Basophils # 0.1 10*3/uL (0.0-0.2); Basophils % 0.7 % (0.0-0.8); Eosinophils # 0.1 10*3/uL (0.0-0.87); Eosinophils % 1.3 % (0.00-10.9); Hematocrit 32.4 VOL% (35.7-47.0); Hemoglobin 9.8 GM/DL (12.0-16.0); Immature Granulocytes % 0.4 %; Immature Granulocytes Absolute 0.04 #; Lymphocytes # 3.1 10*3/uL (1.4-4.0); Lymphocytes % 29.1 % (21.3-54.2); Mean Corpuscular HGB Conc 30.2 GM/DL (32-36); Mean Platelet Volume 9.1 FL (9.6-12.0); Monocytes % 5.1 % (1.7-12.7); Neutrophils % 63.4 % (38.7-73.9); Platelet Count 474 T/CUMM (130-400); Red Blood Count 3.52 MC/CUMM (3.8-5.5); Red Cell Distribution Width 15.7 % (9.3-17.3); White Blood Count 10.6 T/CUMM (4-12)
[2020-08-12 06:39] LABS: Calcium 8.5 MG/DL (8.5-10.1); Osmolality,Calculated 281.5 MOS/KG (273-304); Potassium 4.2 MMOL/L (3.5-5.1)
[2020-08-12 06:59] LABS: Band Neutrophils 1 % (0-10); Eosinophils 1 % (0-10); Hypochromasia 1+; Lymphocytes 20 % (20-55); Microcytosis 1+; Ovalocytes Slight; Platelet Estimate Increased; Segmented Neutrophils 76 % (50-85); Total Cells Counted 100
[2020-08-12] MEDS: HYDROmorphone 2 MG/1 ML VIAL IV PRN ×2 (07:35→13:15)
[2020-08-12] MEDS: LINACLOTIDE 145 MCG CAPSULE PO SCH (07:45)
[2020-08-12] MEDS: MULTIVITAMIN (CENTRUM) TABLET PO SCH (09:23)
[2020-08-12] MEDS: SILVER SULFADIAZINE 1% CREAM 25 GM TUBE TOP SCH (09:24)
[2020-08-12] MEDS: SODIUM HYPOCHLORITE 0.25% IRRIG 473 ML BOTTLE TOP SCH (09:24)
[2020-08-12] MEDS: POLYETHYLENE GLYCOL POWDER 17 GM PACK PO SCH (09:24)
[2020-08-12] MEDS: COLLAGENASE OINT 30 GM TUBE TOP SCH (09:24)
[2020-08-12] MEDS: DILTIAZEM INJ 100 MG in SODIUM CHLORIDE 0.9% 100 ML IV SCH (09:27)
[2020-08-12] MEDS ORDERED: cefTRIAXone 1,000 MG in SODIUM CHLORIDE 0.9% 100 ML IV SCH (10:30)
[2020-08-12 12:12] VITALS: BP 133/77
== END 2020-08-12 15:10 | DRG 314 ==
LOC: N.ED 07:33 → N.EDINP 12:38 → N.TELES 17:34 → N.CC 07-30 23:33 → N.TELEN 08-02 15:41
PROVIDERS: ADMIT Family Medicine; ATTEND Family Medicine

== ENCOUNTER 2020-09-16 11:15 | Inpatient (IN) ==
[2020-09-16] MEDS ORDERED: VANCOMYCIN INJ 1,000 MG in SODIUM CHLORIDE 0.9% 250 ML IV STA (17:55)
[2020-09-16] MEDS ORDERED: ONDANSETRON 4 MG/2 ML VIAL IV STA (17:55)
[2020-09-16] MEDS ORDERED: MORPHINE 2 MG/1 ML SYRINGE IV STA (17:55)
[2020-09-16] MEDS ORDERED: PIPERACILLIN/TAZOBACTAM 3,375 MG in SODIUM CHLORIDE 0.9% 100 ML IV STA (17:58)
[2020-09-16 20:04] LABS: Basophils # 0.1 10*3/uL (0.0-0.2); Basophils % 0.6 % (0.0-0.8); Eosinophils # 0.1 10*3/uL (0.0-0.87); Eosinophils % 1.3 % (0.00-10.9); Hemoglobin 10.6 GM/DL (12.0-16.0); Immature Granulocytes % 0.4 %; Immature Granulocytes Absolute 0.03 #; Lymphocytes % 36.4 % (21.3-54.2); Mean Corpuscular HGB Conc 32.1 GM/DL (32-36); Mean Corpuscular Volume 86.8 FL (87-102); Mean Platelet Volume 9.9 FL (9.6-12.0); Monocytes % 8.4 % (1.7-12.7); Neutrophils % 52.9 % (38.7-73.9); Platelet Count 384 T/CUMM (130-400); Red Cell Distribution Width 15.9 % (9.3-17.3); White Blood Count 8.4 T/CUMM (4-12)
[2020-09-16] MEDS ORDERED: ACETAMINOPHEN 325 MG TABLET PO PRN (20:19)
[2020-09-16] MEDS ORDERED: GLUCAGON 1 MG VIAL IM PRN (20:19)
[2020-09-16] MEDS ORDERED: ONDANSETRON 4 MG/2 ML VIAL IV PRN (20:19)
[2020-09-16] MEDS ORDERED: DEXTROSE 50% 25 GM/50 ML VIAL IV PRN (20:19)
[2020-09-16 20:21] LABS: Alanine Aminotransferase 16 U/L (13-56); Albumin 2.9 G/DL (3.4-5.0); Alkaline Phosphatase 103 U/L (45-117); Aspartate Amino Transferase 12 U/L (0-37); Bilirubin,Total < 0.39 MG/DL (0.20-1.00); Blood Urea Nitrogen 29 MG/DL (7-18); Calcium 8.6 MG/DL (8.5-10.1); Carbon Dioxide 26 MMOL/L (21-32); Estimated Glom Filtration Rate 63 ML/MIN; Glucose 292 MG/DL (74-106); Potassium 4.4 MMOL/L (3.5-5.1); Sodium 136 MMOL/L (136-145); Total Protein 8.3 G/DL (6.4-8.2)
[2020-09-16] MEDS: LACTATED RINGERS 1,000 ML IV SCH (22:35)
[2020-09-16] MEDS: INSULIN REGULAR 100 UNIT/ML SUBCUT SCH (22:41)
[2020-09-17] MEDS: DOCUSATE SODIUM 100 MG CAPSULE PO SCH ×3 (02:17→21:54)
[2020-09-17 06:04] LABS: Basophils # 0.1 10*3/uL (0.0-0.2); Basophils % 0.5 % (0.0-0.8); Eosinophils # 0.1 10*3/uL (0.0-0.87); Eosinophils % 1.1 % (0.00-10.9); Hematocrit 30.3 VOL% (35.7-47.0); Hemoglobin 9.9 GM/DL (12.0-16.0); Immature Granulocytes % 0.4 %; Immature Granulocytes Absolute 0.04 #; Lymphocytes # 2.9 10*3/uL (1.4-4.0); Lymphocytes % 29.3 % (21.3-54.2); Mean Corpuscular HGB Conc 32.7 GM/DL (32-36); Mean Corpuscular Volume 85.8 FL (87-102); Mean Platelet Volume 10.2 FL (9.6-12.0); Monocytes % 7.4 % (1.7-12.7); Neutrophils % 61.3 % (38.7-73.9); Platelet Count 402 T/CUMM (130-400); Red Blood Count 3.53 MC/CUMM (3.8-5.5); Red Cell Distribution Width 16.1 % (9.3-17.3); White Blood Count 9.7 T/CUMM (4-12)
[2020-09-17 06:28] LABS: Calcium 8.7 MG/DL (8.5-10.1); Potassium 3.9 MMOL/L (3.5-5.1)
[2020-09-17] MEDS: INSULIN REGULAR 100 UNIT/ML SUBCUT SCH ×4 (07:30→21:54)
[2020-09-17] MEDS ORDERED: ONDANSETRON 4 MG/2 ML VIAL IV PRN (09:43)
[2020-09-17] MEDS: HYDROmorphone 2 MG/1 ML VIAL IV PRN ×4 (09:59→21:54)
[2020-09-17] MEDS: PIPERACILLIN/TAZOBACTAM 3,375 MG in SODIUM CHLORIDE 0.9% 100 ML IV SCH ×2 (10:02→18:12)
[2020-09-17] MEDS ORDERED: propofoL 200 MG/20 ML VIAL IV ONE (10:07)
[2020-09-17] MEDS ORDERED: LIDOCAINE 2% 5 ML VIAL ONE (10:07)
[2020-09-17] MEDS ORDERED: MIDAZOLAM 2 MG/2 ML VIAL ONE (10:08)
[2020-09-17] MEDS ORDERED: fentaNYL 100 MCG/2 ML VIAL ONE (10:08)
[2020-09-17] MEDS ORDERED: SEVOFLURANE 1 UNIT/15 MINUTE INH ONE ×4 (10:13→11:07)
[2020-09-17] MEDS ORDERED: SUCCINYLCHOLINE 200 MG/10 ML VIAL ONE (10:13)
[2020-09-17] MEDS ORDERED: ONDANSETRON 4 MG/2 ML VIAL ONE (11:07)
[2020-09-17] MEDS ORDERED: LACTATED RINGERS 1,000 ML IV ONE (11:11)
[2020-09-17] MEDS ORDERED: PHENYLEPHRINE 1 MG/10 ML SYRINGE IV ONE (11:16)
[2020-09-17] MEDS: PANTOPRAZOLE 40 MG TABLET PO SCH (14:41)
[2020-09-17] MEDS: VANCOMYCIN INJ 2,000 MG in SODIUM CHLORIDE 0.9% 500 ML IV SCH (14:41)
[2020-09-17] MEDS ORDERED: BACLOFEN 10 MG TABLET PO PRN (16:18)
[2020-09-17] MEDS: carvediloL 6.25 MG TABLET PO SCH (18:11)
[2020-09-17] MEDS: FUROSEMIDE 40 MG TABLET PO SCH (18:11)
[2020-09-17] MEDS ORDERED: PANTOPRAZOLE 40 MG TABLET PO SCH (21:00)
[2020-09-17] MEDS: PREGABALIN 100 MG CAPSULE PO SCH (21:54)
[2020-09-17] MEDS: INSULIN GLARGINE 100 UNIT/ML SUBCUT SCH (21:54)
[2020-09-17] MEDS: LACTATED RINGERS 1,000 ML IV SCH (23:12)
[2020-09-18] MEDS: HYDROmorphone 2 MG/1 ML VIAL IV PRN ×6 (00:13→21:45)
[2020-09-18] MEDS: VANCOMYCIN INJ 2,000 MG in SODIUM CHLORIDE 0.9% 500 ML IV SCH ×2 (02:58→15:24)
[2020-09-18] MEDS: LACTATED RINGERS 1,000 ML IV SCH ×2 (03:01→15:05)
[2020-09-18 05:51] LABS: Basophils # 0.1 10*3/uL (0.0-0.2); Basophils % 1.2 % (0.0-0.8); Eosinophils # 0.2 10*3/uL (0.0-0.87); Eosinophils % 2.4 % (0.00-10.9); Hematocrit 30.1 VOL% (35.7-47.0); Hemoglobin 9.9 GM/DL (12.0-16.0); Immature Granulocytes % 0.3 %; Immature Granulocytes Absolute 0.02 #; Lymphocytes # 2.6 10*3/uL (1.4-4.0); Mean Corpuscular HGB Conc 32.9 GM/DL (32-36); Mean Corpuscular Volume 86.5 FL (87-102); Mean Platelet Volume 9.9 FL (9.6-12.0); Monocytes % 9.4 % (1.7-12.7); Neutrophils % 51.7 % (38.7-73.9); Platelet Count 395 T/CUMM (130-400); Red Blood Count 3.48 MC/CUMM (3.8-5.5); Red Cell Distribution Width 16.1 % (9.3-17.3); White Blood Count 7.5 T/CUMM (4-12)
[2020-09-18] MEDS: PIPERACILLIN/TAZOBACTAM 3,375 MG in SODIUM CHLORIDE 0.9% 100 ML IV SCH ×3 (05:56→19:57)
[2020-09-18 07:30] LABS: Albumin 2.7 G/DL (3.4-5.0); Bilirubin,Total 0.6 MG/DL (0.20-1.00); Calcium 8.3 MG/DL (8.5-10.1); Osmolality,Calculated 275.1 MOS/KG (273-304); Potassium 3.9 MMOL/L (3.5-5.1); Total Protein 7.4 G/DL (6.4-8.2)
[2020-09-18 07:32] LABS: Eosinophils 3 % (0-10); Hypochromasia 1+; Lymphocytes 38 % (20-55); Microcytosis 1+; Segmented Neutrophils 52 % (50-85); Total Cells Counted 100
[2020-09-18 07:34] LABS: Atypical Lymphocytes Few
[2020-09-18] MEDS: SODIUM HYPOCHLORITE 0.25% IRRIG 473 ML BOTTLE TOP SCH (09:00)
[2020-09-18] MEDS: COLLAGENASE OINT 30 GM TUBE TOP SCH (09:00)
[2020-09-18] MEDS: INSULIN REGULAR 100 UNIT/ML SUBCUT SCH ×4 (10:28→21:46)
[2020-09-18] MEDS: FUROSEMIDE 40 MG TABLET PO SCH ×2 (10:28→15:23)
[2020-09-18] MEDS: carvediloL 6.25 MG TABLET PO SCH ×2 (10:28→17:52)
[2020-09-18] MEDS: ASPIRIN EC 81 MG TABLET PO SCH (10:29)
[2020-09-18] MEDS: INSULIN GLARGINE 100 UNIT/ML SUBCUT SCH ×2 (10:30→21:45)
[2020-09-18] MEDS: PREGABALIN 100 MG CAPSULE PO SCH ×3 (10:30→21:45)
[2020-09-18] MEDS: DOCUSATE SODIUM 100 MG CAPSULE PO SCH ×2 (10:30→21:45)
[2020-09-18] MEDS: PANTOPRAZOLE 40 MG TABLET PO SCH (10:30)
[2020-09-18] MEDS ORDERED: diphenhydrAMINE CAP 25 MG CAPSULE PO PRN (14:02)
[2020-09-19] MEDS: HYDROmorphone 2 MG/1 ML VIAL IV PRN ×6 (01:23→21:58)
[2020-09-19] MEDS: VANCOMYCIN INJ 2,000 MG in SODIUM CHLORIDE 0.9% 500 ML IV SCH ×2 (01:38→14:56)
[2020-09-19] MEDS: PIPERACILLIN/TAZOBACTAM 3,375 MG in SODIUM CHLORIDE 0.9% 100 ML IV SCH ×3 (04:17→17:09)
[2020-09-19 04:57] LABS: Basophils # 0.1 10*3/uL (0.0-0.2); Basophils % 0.7 % (0.0-0.8); Eosinophils # 0.3 10*3/uL (0.0-0.87); Eosinophils % 3.7 % (0.00-10.9); Hematocrit 30.1 VOL% (35.7-47.0); Hemoglobin 9.6 GM/DL (12.0-16.0); Immature Granulocytes % 0.4 %; Immature Granulocytes Absolute 0.03 #; Lymphocytes # 2.6 10*3/uL (1.4-4.0); Lymphocytes % 30.5 % (21.3-54.2); Mean Corpuscular HGB Conc 31.9 GM/DL (32-36); Mean Corpuscular Volume 87.2 FL (87-102); Mean Platelet Volume 9.7 FL (9.6-12.0); Neutrophils % 55.7 % (38.7-73.9); Platelet Count 359 T/CUMM (130-400); Red Blood Count 3.45 MC/CUMM (3.8-5.5); White Blood Count 8.5 T/CUMM (4-12)
[2020-09-19 05:31] LABS: Albumin 2.6 G/DL (3.4-5.0); Bilirubin,Total 0.4 MG/DL (0.20-1.00); Calcium 8.2 MG/DL (8.5-10.1); Potassium 3.7 MMOL/L (3.5-5.1); Total Protein 7.4 G/DL (6.4-8.2)
[2020-09-19] MEDS: LACTATED RINGERS 1,000 ML IV SCH ×2 (06:06→17:27)
[2020-09-19] MEDS: INSULIN GLARGINE 100 UNIT/ML SUBCUT SCH ×2 (09:06→21:55)
[2020-09-19] MEDS: DOCUSATE SODIUM 100 MG CAPSULE PO SCH ×2 (09:06→21:55)
[2020-09-19] MEDS: INSULIN REGULAR 100 UNIT/ML SUBCUT SCH ×4 (09:06→21:56)
[2020-09-19] MEDS: FUROSEMIDE 40 MG TABLET PO SCH ×2 (09:06→17:09)
[2020-09-19] MEDS: PANTOPRAZOLE 40 MG TABLET PO SCH (09:06)
[2020-09-19] MEDS: ASPIRIN EC 81 MG TABLET PO SCH (09:07)
[2020-09-19] MEDS: PREGABALIN 100 MG CAPSULE PO SCH ×3 (09:07→21:55)
[2020-09-19] MEDS: carvediloL 6.25 MG TABLET PO SCH ×2 (09:07→17:09)
[2020-09-19] MEDS: SODIUM HYPOCHLORITE 0.25% IRRIG 473 ML BOTTLE TOP SCH (14:52)
[2020-09-19] MEDS: COLLAGENASE OINT 30 GM TUBE TOP SCH (14:52)
[2020-09-20] MEDS: PIPERACILLIN/TAZOBACTAM 3,375 MG in SODIUM CHLORIDE 0.9% 100 ML IV SCH ×3 (02:10→17:05)
[2020-09-20] MEDS: HYDROmorphone 2 MG/1 ML VIAL IV PRN ×6 (04:56→23:26)
[2020-09-20] MEDS: LACTATED RINGERS 1,000 ML IV SCH (04:59)
[2020-09-20 05:35] LABS: Basophils # 0.1 10*3/uL (0.0-0.2); Basophils % 0.7 % (0.0-0.8); Eosinophils # 0.3 10*3/uL (0.0-0.87); Eosinophils % 3.2 % (0.00-10.9); Hematocrit 30.5 VOL% (35.7-47.0); Hemoglobin 9.7 GM/DL (12.0-16.0); Immature Granulocytes % 0.4 %; Immature Granulocytes Absolute 0.03 #; Lymphocytes # 3.2 10*3/uL (1.4-4.0); Lymphocytes % 37.9 % (21.3-54.2); Mean Corpuscular HGB Conc 31.8 GM/DL (32-36); Mean Corpuscular Volume 86.9 FL (87-102); Mean Platelet Volume 9.6 FL (9.6-12.0); Monocytes % 8.1 % (1.7-12.7); Neutrophils % 49.7 % (38.7-73.9); Platelet Count 376 T/CUMM (130-400); Red Blood Count 3.51 MC/CUMM (3.8-5.5); Red Cell Distribution Width 16.2 % (9.3-17.3); White Blood Count 8.5 T/CUMM (4-12)
[2020-09-20 06:07] LABS: Albumin 2.8 G/DL (3.4-5.0); Bilirubin,Total 0.5 MG/DL (0.20-1.00); Calcium 8.9 MG/DL (8.5-10.1); Osmolality,Calculated 285.1 MOS/KG (273-304); Potassium 3.3 MMOL/L (3.5-5.1); Total Protein 7.7 G/DL (6.4-8.2)
[2020-09-20 06:16] LABS: Anisocytosis 2+; Atypical Lymphocytes Few; Band Neutrophils 1 % (0-10); Eosinophils 4 % (0-10); Lymphocytes 43 % (20-55); Platelet Estimate Normal; Segmented Neutrophils 49 % (50-85); Total Cells Counted 100
[2020-09-20] MEDS: INSULIN REGULAR 100 UNIT/ML SUBCUT SCH ×4 (08:42→21:00)
[2020-09-20] MEDS: INSULIN GLARGINE 100 UNIT/ML SUBCUT SCH ×2 (08:43→21:00)
[2020-09-20] MEDS: DOCUSATE SODIUM 100 MG CAPSULE PO SCH ×2 (08:44→20:59)
[2020-09-20] MEDS: PANTOPRAZOLE 40 MG TABLET PO SCH (08:44)
[2020-09-20] MEDS: ASPIRIN EC 81 MG TABLET PO SCH (08:44)
[2020-09-20] MEDS: FUROSEMIDE 40 MG TABLET PO SCH ×2 (08:44→17:04)
[2020-09-20] MEDS: PREGABALIN 100 MG CAPSULE PO SCH ×3 (08:45→20:59)
[2020-09-20] MEDS: carvediloL 6.25 MG TABLET PO SCH ×2 (08:50→18:49)
[2020-09-20] MEDS ORDERED: VANCOMYCIN INJ 2,000 MG in SODIUM CHLORIDE 0.9% 500 ML IV SCH (14:00)
[2020-09-20] MEDS: POTASSIUM CHLORIDE INJ 20 MEQ in LACTATED RINGERS 1,000 ML IV SCH (15:30)
[2020-09-20] MEDS: COLLAGENASE OINT 30 GM TUBE TOP SCH (16:40)
[2020-09-20] MEDS: SODIUM HYPOCHLORITE 0.25% IRRIG 473 ML BOTTLE TOP SCH (16:41)
[2020-09-21] MEDS: PIPERACILLIN/TAZOBACTAM 3,375 MG in SODIUM CHLORIDE 0.9% 100 ML IV SCH ×3 (01:15→17:21)
[2020-09-21 05:44] LABS: Basophils % 0.4 % (0.0-0.8); Eosinophils # 0.3 10*3/uL (0.0-0.87); Eosinophils % 3.3 % (0.00-10.9); Hematocrit 30.3 VOL% (35.7-47.0); Hemoglobin 9.6 GM/DL (12.0-16.0); Immature Granulocytes % 0.4 %; Immature Granulocytes Absolute 0.04 #; Lymphocytes # 3.4 10*3/uL (1.4-4.0); Lymphocytes % 36.3 % (21.3-54.2); Mean Corpuscular HGB Conc 31.7 GM/DL (32-36); Mean Corpuscular Volume 87.3 FL (87-102); Mean Platelet Volume 9.8 FL (9.6-12.0); Monocytes % 8.9 % (1.7-12.7); Neutrophils % 50.7 % (38.7-73.9); Platelet Count 360 T/CUMM (130-400); Red Blood Count 3.47 MC/CUMM (3.8-5.5); Red Cell Distribution Width 16.5 % (9.3-17.3); White Blood Count 9.3 T/CUMM (4-12)
[2020-09-21 06:17] LABS: Albumin 2.6 G/DL (3.4-5.0); Bilirubin,Total 0.8 MG/DL (0.20-1.00); Calcium 8.5 MG/DL (8.5-10.1); Osmolality,Calculated 292.8 MOS/KG (273-304); Potassium 3.1 MMOL/L (3.5-5.1); Total Protein 7.5 G/DL (6.4-8.2)
[2020-09-21 07:11] LABS: Hypochromasia Slight; Microcytosis 1+; Polychromasia Slight
[2020-09-21 07:12] LABS: Platelet Estimate Increased
[2020-09-21] MEDS: INSULIN REGULAR 100 UNIT/ML SUBCUT SCH ×4 (08:49→20:51)
[2020-09-21] MEDS: ASPIRIN EC 81 MG TABLET PO SCH (08:52)
[2020-09-21] MEDS: PANTOPRAZOLE 40 MG TABLET PO SCH (08:52)
[2020-09-21] MEDS: FUROSEMIDE 40 MG TABLET PO SCH ×2 (08:52→17:16)
[2020-09-21] MEDS: DOCUSATE SODIUM 100 MG CAPSULE PO SCH ×2 (08:52→20:51)
[2020-09-21] MEDS: PREGABALIN 100 MG CAPSULE PO SCH ×3 (08:53→20:51)
[2020-09-21] MEDS: carvediloL 6.25 MG TABLET PO SCH ×2 (09:32→17:16)
[2020-09-21] MEDS: HYDROmorphone 2 MG/1 ML VIAL IV PRN ×5 (09:41→20:52)
[2020-09-21] MEDS: INSULIN GLARGINE 100 UNIT/ML SUBCUT SCH ×2 (09:42→20:51)
[2020-09-21] MEDS: LACTATED RINGERS IV SCH (14:44)
[2020-09-21] MEDS: POTASSIUM CHLORIDE IV SCH (14:44)
[2020-09-21] MEDS: MAGNESIUM SULF IV SCH (14:44)
[2020-09-21] MEDS: POTASSIUM CHLORIDE RIDER 10 MEQ/100 ML PREMIX IV SCH ×2 (14:45→15:50)
[2020-09-21] MEDS: SODIUM HYPOCHLORITE 0.25% IRRIG 473 ML BOTTLE TOP SCH (14:52)
[2020-09-21] MEDS: COLLAGENASE OINT 30 GM TUBE TOP SCH (14:52)
[2020-09-21] MEDS ORDERED: VANCOMYCIN INJ 2,000 MG in SODIUM CHLORIDE 0.9% 500 ML IV ONE (21:00)
[2020-09-22] MEDS: PIPERACILLIN/TAZOBACTAM 3,375 MG in SODIUM CHLORIDE 0.9% 100 ML IV SCH ×2 (01:15→09:42)
[2020-09-22] MEDS: HYDROmorphone 2 MG/1 ML VIAL IV PRN ×2 (01:15→04:24)
[2020-09-22] MEDS: MAGNESIUM SULF IV SCH ×2 (02:31→11:51)
[2020-09-22] MEDS: LACTATED RINGERS IV SCH ×2 (02:31→11:51)
[2020-09-22] MEDS: POTASSIUM CHLORIDE IV SCH ×2 (02:31→11:51)
[2020-09-22] MEDS: POTASSIUM CHLORIDE INJ 20 MEQ in LACTATED RINGERS 1,000 ML IV SCH (02:33)
[2020-09-22 04:21] LABS: Basophils # 0.1 10*3/uL (0.0-0.2); Basophils % 0.6 % (0.0-0.8); Eosinophils # 0.3 10*3/uL (0.0-0.87); Hematocrit 30.1 VOL% (35.7-47.0); Hemoglobin 9.7 GM/DL (12.0-16.0); Immature Granulocytes % 0.3 %; Immature Granulocytes Absolute 0.03 #; Lymphocytes # 3.6 10*3/uL (1.4-4.0); Lymphocytes % 37.5 % (21.3-54.2); Mean Corpuscular HGB Conc 32.2 GM/DL (32-36); Mean Corpuscular Volume 86.5 FL (87-102); Mean Platelet Volume 9.7 FL (9.6-12.0); Monocytes % 7.5 % (1.7-12.7); Neutrophils % 51.1 % (38.7-73.9); Platelet Count 343 T/CUMM (130-400); Red Blood Count 3.48 MC/CUMM (3.8-5.5); Red Cell Distribution Width 16.5 % (9.3-17.3); White Blood Count 9.6 T/CUMM (4-12)
[2020-09-22 04:42] LABS: Alanine Aminotransferase 13 U/L (13-56); Albumin 2.5 G/DL (3.4-5.0); Alkaline Phosphatase 83 U/L (45-117); Aspartate Amino Transferase 14 U/L (0-37); Bilirubin,Total < 0.39 MG/DL (0.20-1.00); Blood Urea Nitrogen 54 MG/DL (7-18); Calcium 8.4 MG/DL (8.5-10.1); Carbon Dioxide 27 MMOL/L (21-32); Estimated Glom Filtration Rate 49 ML/MIN; Glucose 151 MG/DL (74-106); Osmolality,Calculated 296.4 MOS/KG (273-304); Potassium 3.1 MMOL/L (3.5-5.1); Sodium 140 MMOL/L (136-145); Total Protein 7.4 G/DL (6.4-8.2)
[2020-09-22] MEDS: INSULIN REGULAR 100 UNIT/ML SUBCUT SCH ×2 (08:13→12:24)
[2020-09-22] MEDS: PREGABALIN 100 MG CAPSULE PO SCH (09:38)
[2020-09-22] MEDS: carvediloL 6.25 MG TABLET PO SCH (09:38)
[2020-09-22] MEDS: PANTOPRAZOLE 40 MG TABLET PO SCH (09:40)
[2020-09-22] MEDS: FUROSEMIDE 40 MG TABLET PO SCH (09:40)
[2020-09-22] MEDS: DOCUSATE SODIUM 100 MG CAPSULE PO SCH (09:40)
[2020-09-22] MEDS: ASPIRIN EC 81 MG TABLET PO SCH (09:40)
[2020-09-22] MEDS: INSULIN GLARGINE 100 UNIT/ML SUBCUT SCH (09:41)
[2020-09-22 12:02] VITALS: BP 112/58
[2020-09-22] MEDS: COLLAGENASE OINT 30 GM TUBE TOP SCH (14:00)
[2020-09-22] MEDS: SODIUM HYPOCHLORITE 0.25% IRRIG 473 ML BOTTLE TOP SCH (14:00)
== END 2020-09-22 15:46 | disposition home or self-care (01) | DRG 951 ==
LOC: N.EDINP 11:15 → N.ED 11:15 → N.3E 09-17 00:30
PROVIDERS: ADMIT Family Medicine; ATTEND Family Medicine

== ENCOUNTER 2020-09-25 11:18 | Inpatient (IN) ==
[2020-09-25] MEDS ORDERED: SODIUM CHLORIDE 0.9% 1,000 ML IV STA (11:40)
[2020-09-25 12:37] LABS: Basophils % 0.2 % (0.0-0.8); Hematocrit 32.1 VOL% (35.7-47.0); Hemoglobin 10.4 GM/DL (12.0-16.0); Immature Granulocytes % 0.4 %; Immature Granulocytes Absolute 0.03 #; Lymphocytes # 0.8 10*3/uL (1.4-4.0); Lymphocytes % 9.7 % (21.3-54.2); Mean Corpuscular HGB Conc 32.4 GM/DL (32-36); Mean Corpuscular Volume 86.1 FL (87-102); Neutrophils % 87.7 % (38.7-73.9); Platelet Count 331 T/CUMM (130-400); Red Blood Count 3.73 MC/CUMM (3.8-5.5); Red Cell Distribution Width 16.5 % (9.3-17.3); White Blood Count 8.6 T/CUMM (4-12)
[2020-09-25 12:53] LABS: Bilirubin,Total 0.4 MG/DL (0.20-1.00); Calcium 8.5 MG/DL (8.5-10.1); Osmolality,Calculated 311.7 MOS/KG (273-304); Potassium 3.2 MMOL/L (3.5-5.1); Total Protein 7.8 G/DL (6.4-8.2)
[2020-09-25 12:56] LABS: INR 1.1; PT Patient Result 11.8 SECS (10.5-12.0)
[2020-09-25] MEDS ORDERED: SODIUM CHLORIDE 0.9% 500 ML IV STA (13:08)
[2020-09-25 13:20] LABS: ABG Base Excess -0.3 MMOL/L (-2.5-2.5); ABG HCO3 24.2 MMOL/L (20-26); ABG Oxygen Saturation 94.5 % (95-100); ABG PCO2 36.1 MM HG (35-48); ABG PH 7.427 (7.35-7.45); ABG PO2 75.7 MM HG (80-95); ABG TCO2 21.4 MMOL/L (23-27)
[2020-09-25 13:57] LABS: Amorphous Crystals,Urine Few /HPF (Few); Bilirubin,Urine Negative (Negative); Blood, Urine Negative (Negative); Glucose,Urine (UA) >=500 mg/dL (Negative); Hyaline Casts,Urine 13 /LPF (0-3); Ketones,Urine 20 mg/dL (Negative); Mucus,Urine Occasional /LPF (Occasional); Nitrite,Urine Negative (Negative); Protein,Urine Negative; RBC,Urine <1 /HPF (0-4); Squamous Epithelial Cell,Urine Occasional /HPF (0-10); Urine Appearance CLEAR (Clear); Urine Color Yellow (Yellow); Urine Specific Gravity 1.017 (1.001-1.035); Urine Urobilinogen < 2.0 EU/DL (0.2-1.0)
[2020-09-25] MEDS ORDERED: VANCOMYCIN INJ 1,000 MG in SODIUM CHLORIDE 0.9% 250 ML IV STA (14:03)
[2020-09-25] MEDS ORDERED: PIPERACILLIN/TAZOBACTAM 3,375 MG in SODIUM CHLORIDE 0.9% 100 ML IV STA (14:03)
[2020-09-25] MEDS ORDERED: POTASSIUM CHLORIDE 20 MEQ TABLET PO STA (14:18)
[2020-09-25] MEDS ORDERED: DEXTROSE 50% 25 GM/50 ML VIAL IV PRN (18:12)
[2020-09-25] MEDS ORDERED: ACETAMINOPHEN 325 MG TABLET PO PRN (18:12)
[2020-09-25] MEDS ORDERED: GLUCAGON 1 MG VIAL IM PRN (18:12)
[2020-09-25] MEDS ORDERED: ONDANSETRON 4 MG/2 ML VIAL IV PRN (18:12)
[2020-09-25] MEDS: SODIUM CHLORIDE 0.9% 1,000 ML IV SCH (18:45)
[2020-09-25] MEDS ORDERED: KETOROLAC 30 MG/1 ML VIAL IV STA (20:22)
[2020-09-25] MEDS ORDERED: HYDROmorphone 2 MG/1 ML VIAL IV SCH (20:30)
[2020-09-25] MEDS: HYDROmorphone 2 MG/1 ML VIAL IV PRN (20:48)
[2020-09-25] MEDS: INSULIN REGULAR 100 UNIT/ML SUBCUT SCH (21:15)
[2020-09-25] MEDS: DOCUSATE SODIUM 100 MG CAPSULE PO SCH (21:15)
[2020-09-26] MEDS: INSULIN REGULAR 100 UNIT/ML SUBCUT SCH ×4 (08:00→22:10)
[2020-09-26] MEDS ORDERED: PANTOPRAZOLE 40 MG TABLET PO SCH (09:00)
[2020-09-26] MEDS: DOCUSATE SODIUM 100 MG CAPSULE PO SCH ×2 (09:00→22:10)
[2020-09-26] MEDS: SODIUM CHLORIDE 0.9% 1,000 ML IV SCH ×3 (10:07→18:54)
[2020-09-26] MEDS: HYDROmorphone 2 MG/1 ML VIAL IV PRN ×2 (10:09→22:16)
[2020-09-26] MEDS ORDERED: hydrALAZINE 20 MG/1 ML VIAL IV PRN (11:34)
[2020-09-26] MEDS ORDERED: POTASSIUM CHLORIDE RIDER 10 MEQ/100 ML PREMIX IV PRN (11:35)
[2020-09-26] MEDS ORDERED: BACLOFEN 10 MG TABLET PO PRN (11:35)
[2020-09-26] MEDS ORDERED: SKIN HEALING OINT (AQUAPHOR) 50 GM TUBE TOP PRN (11:35)
[2020-09-26] MEDS ORDERED: MAGNESIUM SULF RIDER 4 GM/100 ML PREMIX IV PRN (11:35)
[2020-09-26] MEDS ORDERED: MAGNESIUM SULF RIDER 2 GM/50 ML PREMIX IV PRN (11:35)
[2020-09-26] MEDS: PIPERACILLIN/TAZOBACTAM 3,375 MG in SODIUM CHLORIDE 0.9% 100 ML IV SCH ×2 (13:09→22:08)
[2020-09-26] MEDS: PREGABALIN 100 MG CAPSULE PO SCH ×2 (17:45→22:11)
[2020-09-26] MEDS: PANTOPRAZOLE 40 MG TABLET PO SCH (22:10)
[2020-09-26] MEDS: INSULIN GLARGINE 100 UNIT/ML SUBCUT SCH (22:10)
[2020-09-26] MEDS: POTASSIUM CHLORIDE 20 MEQ TABLET PO SCH (22:11)
[2020-09-26] MEDS: carvediloL 3.125 MG TABLET PO SCH (22:11)
[2020-09-26] MEDS: FUROSEMIDE 40 MG TABLET PO SCH (22:11)
[2020-09-27] MEDS: PIPERACILLIN/TAZOBACTAM 3,375 MG in SODIUM CHLORIDE 0.9% 100 ML IV SCH ×3 (04:04→21:20)
[2020-09-27 06:30] LABS: Basophils # 0.1 10*3/uL (0.0-0.2); Basophils % 0.9 % (0.0-0.8); Eosinophils # 0.1 10*3/uL (0.0-0.87); Eosinophils % 1.3 % (0.00-10.9); Hematocrit 29.8 VOL% (35.7-47.0); Hemoglobin 9.3 GM/DL (12.0-16.0); Immature Granulocytes % 0.2 %; Immature Granulocytes Absolute 0.02 #; Lymphocytes # 4.2 10*3/uL (1.4-4.0); Lymphocytes % 48.7 % (21.3-54.2); Mean Corpuscular HGB Conc 31.2 GM/DL (32-36); Mean Corpuscular Volume 89.2 FL (87-102); Neutrophils % 39.9 % (38.7-73.9); Platelet Count 258 T/CUMM (130-400); Red Blood Count 3.34 MC/CUMM (3.8-5.5); Red Cell Distribution Width 17.2 % (9.3-17.3); White Blood Count 8.6 T/CUMM (4-12)
[2020-09-27 06:57] LABS: Alanine Aminotransferase 32 U/L (13-56); Albumin 2.6 G/DL (3.4-5.0); Alkaline Phosphatase 118 U/L (45-117); Aspartate Amino Transferase 22 U/L (0-37); Bilirubin,Total < 0.39 MG/DL (0.20-1.00); Blood Urea Nitrogen 36 MG/DL (7-18); Calcium 7.8 MG/DL (8.5-10.1); Carbon Dioxide 27 MMOL/L (21-32); Estimated Glom Filtration Rate 63 ML/MIN; Glucose 110 MG/DL (74-106); Osmolality,Calculated 289.3 MOS/KG (273-304); Potassium 3.2 MMOL/L (3.5-5.1); Sodium 141 MMOL/L (136-145)
[2020-09-27 07:19] LABS: Anisocytosis 1+; Hypochromasia 1+; Microcytosis 1+; Polychromasia Slight
[2020-09-27 07:20] LABS: Ovalocytes Slight; Platelet Estimate Normal
[2020-09-27] MEDS: INSULIN REGULAR 100 UNIT/ML SUBCUT SCH ×4 (08:40→21:21)
[2020-09-27] MEDS: INSULIN GLARGINE 100 UNIT/ML SUBCUT SCH ×2 (09:24→21:21)
[2020-09-27] MEDS: glipiZIDE 10 MG TABLET PO SCH ×2 (09:24→17:12)
[2020-09-27] MEDS: PANTOPRAZOLE 40 MG TABLET PO SCH ×2 (09:24→21:19)
[2020-09-27] MEDS: PREGABALIN 100 MG CAPSULE PO SCH (09:25)
[2020-09-27] MEDS: POTASSIUM CHLORIDE 20 MEQ TABLET PO SCH ×2 (09:25→21:20)
[2020-09-27] MEDS: FUROSEMIDE 40 MG TABLET PO SCH ×2 (09:25→21:19)
[2020-09-27] MEDS: DOCUSATE SODIUM 100 MG CAPSULE PO SCH ×2 (09:25→21:19)
[2020-09-27] MEDS: carvediloL 3.125 MG TABLET PO SCH ×2 (09:25→21:19)
[2020-09-27] MEDS: ASPIRIN EC 81 MG TABLET PO SCH (09:25)
[2020-09-27] MEDS: MAGNESIUM CHLORIDE 64 MG TABLET PO SCH (09:25)
[2020-09-27] MEDS: SODIUM CHLORIDE 0.9% 1,000 ML IV SCH (12:22)
[2020-09-27] MEDS: BISACODYL 5 MG TABLET PO SCH (14:00)
[2020-09-27] MEDS: HYDROmorphone 2 MG/1 ML VIAL IV PRN (14:42)
[2020-09-27] MEDS: PREGABALIN 75 MG CAPSULE PO SCH ×2 (15:45→21:20)
[2020-09-27] MEDS: KETOROLAC 15 MG/1 ML VIAL IV SCH (21:23)
[2020-09-28] MEDS: PIPERACILLIN/TAZOBACTAM 3,375 MG in SODIUM CHLORIDE 0.9% 100 ML IV SCH ×3 (04:07→20:39)
[2020-09-28] MEDS: HYDROmorphone 2 MG/1 ML VIAL IV PRN ×2 (04:44→12:46)
[2020-09-28 05:37] LABS: Basophils # 0.1 10*3/uL (0.0-0.2); Basophils % 0.6 % (0.0-0.8); Eosinophils # 0.2 10*3/uL (0.0-0.87); Eosinophils % 1.8 % (0.00-10.9); Hematocrit 29.2 VOL% (35.7-47.0); Hemoglobin 9.4 GM/DL (12.0-16.0); Immature Granulocytes % 0.4 %; Immature Granulocytes Absolute 0.04 #; Lymphocytes # 3.3 10*3/uL (1.4-4.0); Lymphocytes % 35.4 % (21.3-54.2); Mean Corpuscular HGB Conc 32.2 GM/DL (32-36); Mean Corpuscular Volume 88.5 FL (87-102); Mean Platelet Volume 10.3 FL (9.6-12.0); Monocytes % 8.2 % (1.7-12.7); Neutrophils % 53.6 % (38.7-73.9); Platelet Count 256 T/CUMM (130-400); Red Cell Distribution Width 17.2 % (9.3-17.3); White Blood Count 9.4 T/CUMM (4-12)
[2020-09-28 05:56] LABS: Alanine Aminotransferase 30 U/L (13-56); Albumin 2.6 G/DL (3.4-5.0); Alkaline Phosphatase 108 U/L (45-117); Aspartate Amino Transferase 21 U/L (0-37); Bilirubin,Total < 0.39 MG/DL (0.20-1.00); Blood Urea Nitrogen 36 MG/DL (7-18); Calcium 7.5 MG/DL (8.5-10.1); Carbon Dioxide 24 MMOL/L (21-32); Estimated Glom Filtration Rate 54 ML/MIN; Glucose 120 MG/DL (74-106); Sodium 136 MMOL/L (136-145); Total Protein 6.7 G/DL (6.4-8.2)
[2020-09-28] MEDS ORDERED: POTASSIUM CHLORIDE 20 MEQ TABLET PO ONE (07:01)
[2020-09-28] MEDS ORDERED: POTASSIUM CHLORIDE 20 MEQ TABLET PO PRN (07:01)
[2020-09-28] MEDS: INSULIN REGULAR 100 UNIT/ML SUBCUT SCH ×4 (07:59→20:49)
[2020-09-28] MEDS: carvediloL 3.125 MG TABLET PO SCH ×2 (08:18→20:40)
[2020-09-28] MEDS: POTASSIUM CHLORIDE 20 MEQ TABLET PO SCH ×2 (08:19→20:39)
[2020-09-28] MEDS: glipiZIDE 10 MG TABLET PO SCH ×2 (08:19→16:11)
[2020-09-28] MEDS: MAGNESIUM CHLORIDE 64 MG TABLET PO SCH (08:19)
[2020-09-28] MEDS: INSULIN GLARGINE 100 UNIT/ML SUBCUT SCH ×2 (08:19→21:41)
[2020-09-28] MEDS: FUROSEMIDE 40 MG TABLET PO SCH ×2 (08:19→20:40)
[2020-09-28] MEDS: PREGABALIN 75 MG CAPSULE PO SCH ×3 (08:19→20:40)
[2020-09-28] MEDS: ASPIRIN EC 81 MG TABLET PO SCH (08:19)
[2020-09-28] MEDS: PANTOPRAZOLE 40 MG TABLET PO SCH ×2 (08:19→20:39)
[2020-09-28] MEDS: KETOROLAC 15 MG/1 ML VIAL IV SCH (08:20)
[2020-09-28] MEDS: DOCUSATE SODIUM 100 MG CAPSULE PO SCH ×2 (08:21→20:40)
[2020-09-28] MEDS: BISACODYL 5 MG TABLET PO SCH (08:21)
[2020-09-28] MEDS: COLLAGENASE OINT 30 GM TUBE TOP SCH (10:16)
[2020-09-28] MEDS ORDERED: KETOROLAC 15 MG/1 ML VIAL IV PRN (20:55)
[2020-09-29] MEDS: PIPERACILLIN/TAZOBACTAM 3,375 MG in SODIUM CHLORIDE 0.9% 100 ML IV SCH ×2 (03:20→13:43)
[2020-09-29 04:54] LABS: Basophils # 0.1 10*3/uL (0.0-0.2); Basophils % 0.7 % (0.0-0.8); Eosinophils # 0.2 10*3/uL (0.0-0.87); Eosinophils % 1.8 % (0.00-10.9); Hematocrit 29.1 VOL% (35.7-47.0); Hemoglobin 9.3 GM/DL (12.0-16.0); Immature Granulocytes % 0.2 %; Immature Granulocytes Absolute 0.02 #; Lymphocytes # 3.3 10*3/uL (1.4-4.0); Lymphocytes % 39.3 % (21.3-54.2); Mean Corpuscular Volume 89.3 FL (87-102); Mean Platelet Volume 10.2 FL (9.6-12.0); Monocytes % 8.1 % (1.7-12.7); Neutrophils % 49.9 % (38.7-73.9); Platelet Count 193 T/CUMM (130-400); Red Blood Count 3.26 MC/CUMM (3.8-5.5); Red Cell Distribution Width 17.4 % (9.3-17.3); White Blood Count 8.4 T/CUMM (4-12)
[2020-09-29 05:29] LABS: Albumin 2.5 G/DL (3.4-5.0); Bilirubin,Total 0.5 MG/DL (0.20-1.00); Calcium 7.5 MG/DL (8.5-10.1); Osmolality,Calculated 289.4 MOS/KG (273-304); Potassium 3.5 MMOL/L (3.5-5.1); Total Protein 6.6 G/DL (6.4-8.2)
[2020-09-29] MEDS: INSULIN GLARGINE 100 UNIT/ML SUBCUT SCH ×2 (09:40→20:12)
[2020-09-29] MEDS: MAGNESIUM CHLORIDE 64 MG TABLET PO SCH (09:41)
[2020-09-29] MEDS: DOCUSATE SODIUM 100 MG CAPSULE PO SCH ×2 (09:41→20:08)
[2020-09-29] MEDS: ASPIRIN EC 81 MG TABLET PO SCH (09:41)
[2020-09-29] MEDS: glipiZIDE 10 MG TABLET PO SCH ×2 (09:41→18:02)
[2020-09-29] MEDS: FUROSEMIDE 40 MG TABLET PO SCH ×2 (09:41→20:09)
[2020-09-29] MEDS: BISACODYL 5 MG TABLET PO SCH ×2 (09:42→09:47)
[2020-09-29] MEDS: carvediloL 3.125 MG TABLET PO SCH ×2 (09:42→20:09)
[2020-09-29] MEDS: PREGABALIN 75 MG CAPSULE PO SCH ×3 (09:42→20:09)
[2020-09-29] MEDS: POTASSIUM CHLORIDE 20 MEQ TABLET PO SCH ×2 (09:43→20:09)
[2020-09-29] MEDS: PANTOPRAZOLE 40 MG TABLET PO SCH ×2 (09:43→20:09)
[2020-09-29] MEDS: HYDROmorphone 2 MG/1 ML VIAL IV PRN (09:43)
[2020-09-29] MEDS: INSULIN REGULAR 100 UNIT/ML SUBCUT SCH ×4 (09:44→20:50)
[2020-09-29] MEDS: SODIUM CHLORIDE 0.9% 1,000 ML IV SCH ×2 (11:15→22:45)
[2020-09-29] MEDS: fentaNYL 12 MCG/HR PATCH TRANSDERM SCH (12:57)
[2020-09-29] MEDS: COLLAGENASE OINT 30 GM TUBE TOP SCH (15:03)
[2020-09-29 15:21] LABS: Hepatitis B Core IgM Quant 0.14 Index; Hepatitis B Surface Ag Quant < 0.10 Index; Hepatitis B Surface Ag Result Non-Reactive (NonReactive); Hepatitis C Virus Ab Quant 0.07 Index; Hepatitis C Virus Ab Result Non-Reactive (NonReactive)
[2020-09-29] MEDS: CLINDAMYCIN 300 MG CAPSULE PO SCH ×2 (17:04→20:09)
[2020-09-29] MEDS: KETOROLAC 30 MG/1 ML VIAL IV PRN (17:04)
[2020-09-29] MEDS: RIVAROXABAN 15 MG TABLET PO SCH (18:02)
[2020-09-30] MEDS: KETOROLAC 30 MG/1 ML VIAL IV PRN ×2 (04:10→19:30)
[2020-09-30 05:42] LABS: Basophils # 0.1 10*3/uL (0.0-0.2); Basophils % 0.8 % (0.0-0.8); Eosinophils # 0.3 10*3/uL (0.0-0.87); Eosinophils % 3.5 % (0.00-10.9); Hematocrit 28.7 VOL% (35.7-47.0); Hemoglobin 9.3 GM/DL (12.0-16.0); Immature Granulocytes % 0.4 %; Immature Granulocytes Absolute 0.03 #; Lymphocytes # 3.2 10*3/uL (1.4-4.0); Lymphocytes % 39.8 % (21.3-54.2); Mean Corpuscular HGB Conc 32.4 GM/DL (32-36); Mean Corpuscular Volume 88.3 FL (87-102); Mean Platelet Volume 10.4 FL (9.6-12.0); Monocytes % 6.7 % (1.7-12.7); Neutrophils % 48.8 % (38.7-73.9); Platelet Count 208 T/CUMM (130-400); Red Blood Count 3.25 MC/CUMM (3.8-5.5); Red Cell Distribution Width 17.8 % (9.3-17.3); White Blood Count 7.9 T/CUMM (4-12)
[2020-09-30 06:00] LABS: Albumin 2.6 G/DL (3.4-5.0); Bilirubin,Total 0.6 MG/DL (0.20-1.00); Calcium 7.5 MG/DL (8.5-10.1); Calcium 7.8 MG/DL (8.5-10.1); Osmolality,Calculated 283.4 MOS/KG (273-304); Osmolality,Calculated 288.1 MOS/KG (273-304); Potassium 3.5 MMOL/L (3.5-5.1)
[2020-09-30 06:02] LABS: Albumin 2.5 G/DL (3.4-5.0); Bilirubin,Direct 0.3 MG/DL (0.0-0.20); Bilirubin,Indirect 0.7 MG/DL (0.0-1.0); Total Protein 6.9 G/DL (6.4-8.2)
[2020-09-30] MEDS: glipiZIDE 10 MG TABLET PO SCH ×2 (09:32→19:01)
[2020-09-30] MEDS: CLINDAMYCIN 300 MG CAPSULE PO SCH ×3 (09:32→21:54)
[2020-09-30] MEDS: carvediloL 3.125 MG TABLET PO SCH ×2 (09:32→21:54)
[2020-09-30] MEDS: BISACODYL 5 MG TABLET PO SCH (09:32)
[2020-09-30] MEDS: MAGNESIUM CHLORIDE 64 MG TABLET PO SCH (09:32)
[2020-09-30] MEDS: ASPIRIN EC 81 MG TABLET PO SCH (09:33)
[2020-09-30] MEDS: POTASSIUM CHLORIDE 20 MEQ TABLET PO SCH ×2 (09:33→21:54)
[2020-09-30] MEDS: FUROSEMIDE 40 MG TABLET PO SCH ×2 (09:33→21:54)
[2020-09-30] MEDS: RIVAROXABAN 15 MG TABLET PO SCH ×2 (09:33→19:01)
[2020-09-30] MEDS: PREGABALIN 75 MG CAPSULE PO SCH ×3 (09:34→21:54)
[2020-09-30] MEDS: PANTOPRAZOLE 40 MG TABLET PO SCH ×2 (09:34→21:54)
[2020-09-30] MEDS: DOCUSATE SODIUM 100 MG CAPSULE PO SCH ×2 (09:34→21:54)
[2020-09-30] MEDS: SODIUM CHLORIDE 0.9% 1,000 ML IV SCH (09:34)
[2020-09-30] MEDS: INSULIN GLARGINE 100 UNIT/ML SUBCUT SCH ×2 (09:34→22:44)
[2020-09-30] MEDS: INSULIN REGULAR 100 UNIT/ML SUBCUT SCH ×4 (09:38→22:37)
[2020-09-30] MEDS: COLLAGENASE OINT 30 GM TUBE TOP SCH (09:42)
[2020-10-01] MEDS: SODIUM CHLORIDE 0.9% 1,000 ML IV SCH (01:00)
[2020-10-01 06:03] LABS: Basophils # 0.1 10*3/uL (0.0-0.2); Basophils % 0.7 % (0.0-0.8); Eosinophils # 0.3 10*3/uL (0.0-0.87); Eosinophils % 3.2 % (0.00-10.9); Hematocrit 25.9 VOL% (35.7-47.0); Hemoglobin 8.2 GM/DL (12.0-16.0); Immature Granulocytes % 0.3 %; Immature Granulocytes Absolute 0.03 #; Lymphocytes # 3.4 10*3/uL (1.4-4.0); Lymphocytes % 38.3 % (21.3-54.2); Mean Corpuscular HGB Conc 31.7 GM/DL (32-36); Mean Corpuscular Volume 90.9 FL (87-102); Mean Platelet Volume 10.2 FL (9.6-12.0); Monocytes % 6.7 % (1.7-12.7); Neutrophils % 50.8 % (38.7-73.9); Platelet Count 196 T/CUMM (130-400); Red Blood Count 2.85 MC/CUMM (3.8-5.5); Red Cell Distribution Width 18.5 % (9.3-17.3)
[2020-10-01 06:24] LABS: Hypochromasia 1+; Microcytosis 1+; Platelet Estimate Adequate
[2020-10-01 06:34] LABS: Albumin 2.4 G/DL (3.4-5.0); Bilirubin,Total 0.4 MG/DL (0.20-1.00); Calcium 7.4 MG/DL (8.5-10.1); Osmolality,Calculated 287.3 MOS/KG (273-304); Potassium 3.8 MMOL/L (3.5-5.1); Total Protein 6.3 G/DL (6.4-8.2)
[2020-10-01 08:55] LABS: Hematocrit 27.4 VOL% (35.7-47.0); Hemoglobin 8.6 GM/DL (12.0-16.0)
[2020-10-01] MEDS: carvediloL 3.125 MG TABLET PO SCH ×2 (09:29→22:04)
[2020-10-01] MEDS: PREGABALIN 75 MG CAPSULE PO SCH ×3 (09:29→22:04)
[2020-10-01] MEDS: DOCUSATE SODIUM 100 MG CAPSULE PO SCH ×2 (09:29→22:03)
[2020-10-01] MEDS: glipiZIDE 10 MG TABLET PO SCH ×2 (09:30→17:17)
[2020-10-01] MEDS: BISACODYL 5 MG TABLET PO SCH (09:30)
[2020-10-01] MEDS: POTASSIUM CHLORIDE 20 MEQ TABLET PO SCH ×2 (09:30→22:04)
[2020-10-01] MEDS: RIVAROXABAN 15 MG TABLET PO SCH ×2 (09:30→17:19)
[2020-10-01] MEDS: FUROSEMIDE 40 MG TABLET PO SCH ×2 (09:30→22:04)
[2020-10-01] MEDS: CLINDAMYCIN 300 MG CAPSULE PO SCH ×3 (09:30→22:03)
[2020-10-01] MEDS: ASPIRIN EC 81 MG TABLET PO SCH (09:30)
[2020-10-01] MEDS: MAGNESIUM CHLORIDE 64 MG TABLET PO SCH (09:30)
[2020-10-01] MEDS: PANTOPRAZOLE 40 MG TABLET PO SCH ×2 (09:30→22:05)
[2020-10-01] MEDS: INSULIN GLARGINE 100 UNIT/ML SUBCUT SCH ×2 (09:31→22:06)
[2020-10-01] MEDS: COLLAGENASE OINT 30 GM TUBE TOP SCH (09:33)
[2020-10-01] MEDS: KETOROLAC 30 MG/1 ML VIAL IV PRN (09:44)
[2020-10-01] MEDS: INSULIN REGULAR 100 UNIT/ML SUBCUT SCH ×4 (10:41→22:06)
[2020-10-01] MEDS: LINACLOTIDE 145 MCG CAPSULE PO SCH (11:57)
[2020-10-01] MEDS: HYDROmorphone 2 MG/1 ML VIAL IV PRN ×2 (15:24→22:14)
[2020-10-01] MEDS ORDERED: MAGNESIUM CITRATE 300 ML BOTTLE PO ONE (16:00)
[2020-10-02] MEDS: HYDROmorphone 2 MG/1 ML VIAL IV PRN ×3 (02:52→16:34)
[2020-10-02 06:30] LABS: Basophils # 0.1 10*3/uL (0.0-0.2); Eosinophils # 0.3 10*3/uL (0.0-0.87); Eosinophils % 3.3 % (0.00-10.9); Hematocrit 29.5 VOL% (35.7-47.0); Hemoglobin 9.1 GM/DL (12.0-16.0); Immature Granulocytes % 0.4 %; Immature Granulocytes Absolute 0.04 #; Lymphocytes # 4.1 10*3/uL (1.4-4.0); Lymphocytes % 41.5 % (21.3-54.2); Mean Corpuscular HGB Conc 30.8 GM/DL (32-36); Mean Corpuscular Volume 95.2 FL (87-102); Mean Platelet Volume 10.1 FL (9.6-12.0); Monocytes % 8.1 % (1.7-12.7); Neutrophils % 45.7 % (38.7-73.9); Platelet Count 228 T/CUMM (130-400); Red Cell Distribution Width 19.2 % (9.3-17.3); White Blood Count 9.9 T/CUMM (4-12)
[2020-10-02] MEDS: LINACLOTIDE 145 MCG CAPSULE PO SCH (06:30)
[2020-10-02 06:43] LABS: Albumin 2.5 G/DL (3.4-5.0); Bilirubin,Total 1.9 MG/DL (0.20-1.00); Calcium 7.9 MG/DL (8.5-10.1); Osmolality,Calculated 286.3 MOS/KG (273-304); Potassium 3.9 MMOL/L (3.5-5.1); Total Protein 6.8 G/DL (6.4-8.2)
[2020-10-02 06:52] LABS: Eosinophils 3 % (0-10); Hypochromasia 1+; Lymphocytes 40 % (20-55); Microcytosis 1+; Platelet Estimate Adequate; Segmented Neutrophils 50 % (50-85); Total Cells Counted 100
[2020-10-02] MEDS: INSULIN REGULAR 100 UNIT/ML SUBCUT SCH ×4 (08:40→20:54)
[2020-10-02] MEDS: ASPIRIN EC 81 MG TABLET PO SCH (09:53)
[2020-10-02] MEDS: carvediloL 3.125 MG TABLET PO SCH ×2 (09:53→20:52)
[2020-10-02] MEDS: MAGNESIUM CHLORIDE 64 MG TABLET PO SCH (09:53)
[2020-10-02] MEDS: DOCUSATE SODIUM 100 MG CAPSULE PO SCH ×2 (09:53→20:55)
[2020-10-02] MEDS: CLINDAMYCIN 300 MG CAPSULE PO SCH ×3 (09:53→20:52)
[2020-10-02] MEDS: glipiZIDE 10 MG TABLET PO SCH ×2 (09:53→18:12)
[2020-10-02] MEDS: FUROSEMIDE 40 MG TABLET PO SCH ×2 (09:53→20:52)
[2020-10-02] MEDS: COLLAGENASE OINT 30 GM TUBE TOP SCH (09:54)
[2020-10-02] MEDS: PREGABALIN 75 MG CAPSULE PO SCH ×3 (09:54→20:53)
[2020-10-02] MEDS: PANTOPRAZOLE 40 MG TABLET PO SCH ×2 (09:54→20:52)
[2020-10-02] MEDS: POTASSIUM CHLORIDE 20 MEQ TABLET PO SCH ×2 (09:54→20:52)
[2020-10-02] MEDS: RIVAROXABAN 15 MG TABLET PO SCH ×2 (09:54→18:11)
[2020-10-02] MEDS: fentaNYL 12 MCG/HR PATCH TRANSDERM SCH (10:01)
[2020-10-02] MEDS: BISACODYL 5 MG TABLET PO SCH (10:37)
[2020-10-02] MEDS ORDERED: DEXTROSE 50% 25 GM/50 ML VIAL IV PRN (11:30)
[2020-10-02] MEDS ORDERED: GLUCAGON 1 MG VIAL IM PRN (11:30)
[2020-10-02] MEDS: INSULIN GLARGINE 100 UNIT/ML SUBCUT SCH ×2 (12:18→20:53)
[2020-10-03] MEDS: LINACLOTIDE 145 MCG CAPSULE PO SCH (06:29)
[2020-10-03] MEDS: INSULIN GLARGINE 100 UNIT/ML SUBCUT SCH (09:19)
[2020-10-03] MEDS: PANTOPRAZOLE 40 MG TABLET PO SCH (09:20)
[2020-10-03] MEDS: BISACODYL 5 MG TABLET PO SCH (09:20)
[2020-10-03] MEDS: carvediloL 3.125 MG TABLET PO SCH (09:21)
[2020-10-03] MEDS: PREGABALIN 75 MG CAPSULE PO SCH ×2 (09:21→15:53)
[2020-10-03] MEDS: POTASSIUM CHLORIDE 20 MEQ TABLET PO SCH (09:21)
[2020-10-03] MEDS: MAGNESIUM CHLORIDE 64 MG TABLET PO SCH (09:21)
[2020-10-03] MEDS: FUROSEMIDE 40 MG TABLET PO SCH (09:22)
[2020-10-03] MEDS: ASPIRIN EC 81 MG TABLET PO SCH (09:22)
[2020-10-03] MEDS: RIVAROXABAN 15 MG TABLET PO SCH (09:23)
[2020-10-03] MEDS: DOCUSATE SODIUM 100 MG CAPSULE PO SCH (09:23)
[2020-10-03] MEDS: INSULIN REGULAR 100 UNIT/ML SUBCUT SCH ×2 (09:23→12:14)
[2020-10-03] MEDS: glipiZIDE 10 MG TABLET PO SCH (09:23)
[2020-10-03] MEDS: CLINDAMYCIN 300 MG CAPSULE PO SCH ×2 (09:23→15:53)
[2020-10-03] MEDS: COLLAGENASE OINT 30 GM TUBE TOP SCH (09:28)
[2020-10-03 09:39] LABS: Basophils # 0.1 10*3/uL (0.0-0.2); Eosinophils # 0.3 10*3/uL (0.0-0.87); Eosinophils % 3.4 % (0.00-10.9); Hematocrit 30.9 VOL% (35.7-47.0); Hemoglobin 9.5 GM/DL (12.0-16.0); Immature Granulocytes % 0.4 %; Immature Granulocytes Absolute 0.04 #; Lymphocytes # 2.3 10*3/uL (1.4-4.0); Lymphocytes % 25.6 % (21.3-54.2); Mean Corpuscular HGB Conc 30.7 GM/DL (32-36); Mean Corpuscular Volume 91.4 FL (87-102); Mean Platelet Volume 10.1 FL (9.6-12.0); Monocytes % 7.2 % (1.7-12.7); Neutrophils % 62.4 % (38.7-73.9); Platelet Count 268 T/CUMM (130-400); Red Blood Count 3.38 MC/CUMM (3.8-5.5); Red Cell Distribution Width 19.2 % (9.3-17.3)
[2020-10-03 09:58] LABS: Albumin 2.8 G/DL (3.4-5.0); Bilirubin,Total 0.6 MG/DL (0.20-1.00); Calcium 8.2 MG/DL (8.5-10.1); Osmolality,Calculated 285.4 MOS/KG (273-304); Potassium 4.2 MMOL/L (3.5-5.1); Total Protein 6.8 G/DL (6.4-8.2)
[2020-10-03] MEDS: HYDROmorphone 2 MG/1 ML VIAL IV PRN (11:04)
[2020-10-03 12:14] VITALS: BP 131/73
== END 2020-10-03 15:58 | disposition home or self-care (01) | DRG 134 ==
LOC: N.ED 11:18 → N.EDINP 11:18 → N.5E 09-26 13:40
PROVIDERS: ADMIT Family Medicine; ATTEND Family Medicine

== ENCOUNTER 2020-11-12 17:16 | Inpatient (IN) ==
[2020-11-12] MEDS ORDERED: HYDROmorphone 2 MG/1 ML VIAL IV STA (18:35)
[2020-11-12] MEDS ORDERED: ONDANSETRON 4 MG/2 ML VIAL IV STA (18:35)
[2020-11-12 18:48] LABS: Basophils % 0.1 % (0.0-0.8); Hematocrit 29.5 VOL% (35.7-47.0); Hemoglobin 9.5 GM/DL (12.0-16.0); Immature Granulocytes % 0.9 %; Immature Granulocytes Absolute 0.18 #; Lymphocytes # 1.5 10*3/uL (1.4-4.0); Lymphocytes % 7.4 % (21.3-54.2); Mean Corpuscular HGB Conc 32.2 GM/DL (32-36); Mean Platelet Volume 10.2 FL (9.6-12.0); Monocytes % 5.8 % (1.7-12.7); Neutrophils % 85.8 % (38.7-73.9); Platelet Count 353 T/CUMM (130-400); Red Blood Count 3.43 MC/CUMM (3.8-5.5); Red Cell Distribution Width 12.4 % (9.3-17.3); White Blood Count 20.1 T/CUMM (4-12)
[2020-11-12] MEDS ORDERED: PIPERACILLIN/TAZOBACTAM 3,375 MG in SODIUM CHLORIDE 0.9% 100 ML IV STA (19:02)
[2020-11-12 19:07] LABS: Albumin 2.1 G/DL (3.4-5.0); Bilirubin,Total 0.5 MG/DL (0.20-1.00); Calcium 8.4 MG/DL (8.5-10.1); Osmolality,Calculated 283.4 MOS/KG (273-304); Total Protein 8.5 G/DL (6.4-8.2)
[2020-11-12 19:10] LABS: Band Neutrophils 14 % (0-10); Lymphocytes 10 % (20-55); Platelet Estimate Normal; Segmented Neutrophils 71 % (50-85); Total Cells Counted 100
[2020-11-12 19:11] LABS: Anisocytosis 1+; Macrocytosis Slight
[2020-11-12] MEDS ORDERED: INSULIN REGULAR 100 UNIT/ML IV ONE (19:11)
[2020-11-12 19:53] LABS: ABG Base Excess 1.9 MMOL/L (-2.5-2.5); ABG Oxygen Saturation 94.6 % (95-100); ABG PCO2 39.2 MM HG (35-48); ABG PH 7.433 (7.35-7.45); ABG PO2 74.5 MM HG (80-95)
[2020-11-12] MEDS ORDERED: ACETAMINOPHEN 325 MG TABLET PO PRN (20:02)
[2020-11-12] MEDS ORDERED: ONDANSETRON 4 MG/2 ML VIAL IV PRN (20:02)
[2020-11-12] MEDS ORDERED: INSULIN REGULAR 100 UNIT/ML SUBCUT STA (20:10)
[2020-11-12] MEDS ORDERED: GLUCAGON 1 MG VIAL IM PRN (20:20)
[2020-11-12] MEDS ORDERED: DEXTROSE 50% 25 GM/50 ML VIAL IV PRN (20:20)
[2020-11-12] MEDS: DOCUSATE SODIUM 100 MG CAPSULE PO SCH (21:53)
[2020-11-13] MEDS: INSULIN REGULAR 100 UNIT/ML SUBCUT SCH ×5 (00:07→23:29)
[2020-11-13] MEDS ORDERED: PIPERACILLIN/TAZOBACTAM 3,375 MG in SODIUM CHLORIDE 0.9% 100 ML IV ONE (01:05)
[2020-11-13 04:34] LABS: Basophils % 0.3 % (0.0-0.8); Eosinophils # 0.2 10*3/uL (0.0-0.87); Hematocrit 25.9 VOL% (35.7-47.0); Hemoglobin 8.6 GM/DL (12.0-16.0); Immature Granulocytes Absolute 0.15 #; Lymphocytes # 1.8 10*3/uL (1.4-4.0); Lymphocytes % 11.9 % (21.3-54.2); Mean Corpuscular HGB Conc 33.2 GM/DL (32-36); Mean Corpuscular Volume 85.8 FL (87-102); Mean Platelet Volume 10.2 FL (9.6-12.0); Monocytes % 6.8 % (1.7-12.7); Platelet Count 315 T/CUMM (130-400); Red Blood Count 3.02 MC/CUMM (3.8-5.5); Red Cell Distribution Width 12.4 % (9.3-17.3); White Blood Count 15.4 T/CUMM (4-12)
[2020-11-13 04:58] LABS: Calcium 8.1 MG/DL (8.5-10.1); Osmolality,Calculated 278.8 MOS/KG (273-304); Potassium 3.2 MMOL/L (3.5-5.1)
[2020-11-13 05:01] LABS: Hypochromasia 1+; Lymphocytes 12 % (20-55); Microcytosis 1+; Platelet Estimate Adequate; Segmented Neutrophils 84 % (50-85); Total Cells Counted 100
[2020-11-13] MEDS: diphenhydrAMINE CAP 25 MG CAPSULE PO PRN (06:28)
[2020-11-13] MEDS ORDERED: POTASSIUM CHLORIDE RIDER 10 MEQ/100 ML PREMIX IV PRN (07:49)
[2020-11-13] MEDS ORDERED: MAGNESIUM SULF RIDER 4 GM/100 ML PREMIX IV PRN (07:50)
[2020-11-13] MEDS ORDERED: MAGNESIUM SULF RIDER 2 GM/50 ML PREMIX IV PRN (07:50)
[2020-11-13] MEDS ORDERED: LIDOCAINE 1%/EPI INJ 20 ML VIAL ONE (08:30)
[2020-11-13] MEDS ORDERED: BUPIVACAINE MPF 0.25% 30 ML VIAL ONE (08:30)
[2020-11-13] MEDS ORDERED: MIDAZOLAM 2 MG/2 ML VIAL ONE (08:38)
[2020-11-13] MEDS ORDERED: SUCCINYLCHOLINE 200 MG/10 ML VIAL ONE (08:38)
[2020-11-13] MEDS ORDERED: LIDOCAINE 2% 5 ML VIAL ONE (08:38)
[2020-11-13] MEDS ORDERED: fentaNYL 100 MCG/2 ML VIAL ONE (08:38)
[2020-11-13] MEDS ORDERED: propofoL 200 MG/20 ML VIAL IV ONE (08:38)
[2020-11-13] MEDS ORDERED: LACTATED RINGERS 1,000 ML IV SCH (09:00)
[2020-11-13] MEDS ORDERED: SEVOFLURANE 1 UNIT/15 MINUTE INH ONE (09:19)
[2020-11-13] MEDS: HYDROmorphone 2 MG/1 ML VIAL IV PRN ×4 (09:49→20:23)
[2020-11-13] MEDS ORDERED: HYDROmorphone 2 MG/1 ML VIAL ONE (09:49)
[2020-11-13] MEDS ORDERED: ONDANSETRON 4 MG/2 ML VIAL IV PRN (09:54)
[2020-11-13] MEDS ORDERED: VANCOMYCIN INJ 1,000 MG in SODIUM CHLORIDE 0.9% 250 ML IV SCH (11:49)
[2020-11-13] MEDS: PANTOPRAZOLE 40 MG TABLET PO SCH (12:14)
[2020-11-13] MEDS: DOCUSATE SODIUM 100 MG CAPSULE PO SCH ×2 (12:14→20:23)
[2020-11-13] MEDS: PIPERACILLIN/TAZOBACTAM 3,375 MG in SODIUM CHLORIDE 0.9% 100 ML IV SCH ×2 (14:09→20:24)
[2020-11-13] MEDS: INSULIN GLARGINE 100 UNIT/ML SUBCUT SCH (14:09)
[2020-11-13] MEDS: POTASSIUM CHLORIDE 20 MEQ TABLET PO PRN ×3 (15:39→16:53)
[2020-11-13] MEDS: VANCOMYCIN INJ 2,000 MG in SODIUM CHLORIDE 0.9% 500 ML IV SCH (16:53)
[2020-11-13] MEDS: KETOROLAC 30 MG/1 ML VIAL IV SCH ×2 (16:53→23:22)
[2020-11-13] MEDS: GABAPENTIN 300 MG CAPSULE PO SCH (20:23)
[2020-11-14] MEDS: HYDROmorphone 2 MG/1 ML VIAL IV PRN ×4 (02:29→20:42)
[2020-11-14] MEDS: VANCOMYCIN INJ 2,000 MG in SODIUM CHLORIDE 0.9% 500 ML IV SCH ×2 (03:53→17:21)
[2020-11-14] MEDS: PIPERACILLIN/TAZOBACTAM 3,375 MG in SODIUM CHLORIDE 0.9% 100 ML IV SCH ×3 (05:08→20:43)
[2020-11-14] MEDS: KETOROLAC 30 MG/1 ML VIAL IV SCH ×4 (05:09→23:21)
[2020-11-14] MEDS: diphenhydrAMINE CAP 25 MG CAPSULE PO PRN ×3 (05:09→23:40)
[2020-11-14 05:16] LABS: Basophils % 0.5 % (0.0-0.8); Eosinophils # 0.3 10*3/uL (0.0-0.87); Eosinophils % 2.9 % (0.00-10.9); Hemoglobin 9.3 GM/DL (12.0-16.0); Immature Granulocytes % 0.5 %; Immature Granulocytes Absolute 0.04 #; Lymphocytes % 22.6 % (21.3-54.2); Mean Corpuscular HGB Conc 32.1 GM/DL (32-36); Mean Corpuscular Volume 88.1 FL (87-102); Mean Platelet Volume 10.4 FL (9.6-12.0); Neutrophils % 66.5 % (38.7-73.9); Platelet Count 374 T/CUMM (130-400); Red Blood Count 3.29 MC/CUMM (3.8-5.5); Red Cell Distribution Width 12.4 % (9.3-17.3); White Blood Count 8.8 T/CUMM (4-12)
[2020-11-14] MEDS: INSULIN REGULAR 100 UNIT/ML SUBCUT SCH ×3 (05:34→18:24)
[2020-11-14 05:36] LABS: Albumin 1.8 G/DL (3.4-5.0); Bilirubin,Total 0.6 MG/DL (0.20-1.00); Calcium 8.4 MG/DL (8.5-10.1); Osmolality,Calculated 272.4 MOS/KG (273-304); Potassium 3.7 MMOL/L (3.5-5.1); Total Protein 7.4 G/DL (6.4-8.2)
[2020-11-14] MEDS ORDERED: BACLOFEN 10 MG TABLET PO PRN (08:37)
[2020-11-14] MEDS: INSULIN GLARGINE 100 UNIT/ML SUBCUT SCH (09:08)
[2020-11-14] MEDS: DOCUSATE SODIUM 100 MG CAPSULE PO SCH ×2 (09:08→20:43)
[2020-11-14] MEDS: PANTOPRAZOLE 40 MG TABLET PO SCH (09:08)
[2020-11-14] MEDS: GABAPENTIN 300 MG CAPSULE PO SCH ×3 (09:09→20:42)
[2020-11-14] MEDS: carvediloL 3.125 MG TABLET PO SCH ×2 (10:11→20:42)
[2020-11-14] MEDS: POTASSIUM CHLORIDE 20 MEQ TABLET PO SCH ×2 (10:11→20:42)
[2020-11-14] MEDS: FUROSEMIDE 40 MG TABLET PO SCH (10:11)
[2020-11-14] MEDS: RIVAROXABAN 20 MG TABLET PO SCH (10:11)
[2020-11-14] MEDS: COLLAGENASE OINT 30 GM TUBE TOP SCH (13:25)
[2020-11-15] MEDS: INSULIN REGULAR 100 UNIT/ML SUBCUT SCH ×4 (00:47→18:28)
[2020-11-15] MEDS: VANCOMYCIN INJ 2,000 MG in SODIUM CHLORIDE 0.9% 500 ML IV SCH ×2 (03:50→16:47)
[2020-11-15 05:22] LABS: Basophils % 0.5 % (0.0-0.8); Eosinophils # 0.2 10*3/uL (0.0-0.87); Eosinophils % 2.9 % (0.00-10.9); Hematocrit 27.2 VOL% (35.7-47.0); Hemoglobin 8.7 GM/DL (12.0-16.0); Immature Granulocytes % 0.6 %; Immature Granulocytes Absolute 0.05 #; Lymphocytes # 1.6 10*3/uL (1.4-4.0); Lymphocytes % 19.2 % (21.3-54.2); Mean Corpuscular Volume 87.5 FL (87-102); Mean Platelet Volume 10.3 FL (9.6-12.0); Monocytes % 5.3 % (1.7-12.7); Neutrophils % 71.5 % (38.7-73.9); Platelet Count 384 T/CUMM (130-400); Red Blood Count 3.11 MC/CUMM (3.8-5.5); Red Cell Distribution Width 12.8 % (9.3-17.3); White Blood Count 8.2 T/CUMM (4-12)
[2020-11-15] MEDS: KETOROLAC 30 MG/1 ML VIAL IV SCH ×3 (05:25→16:48)
[2020-11-15 05:47] LABS: Alanine Aminotransferase < 6 U/L (13-56); Albumin 1.8 G/DL (3.4-5.0); Alkaline Phosphatase 103 U/L (45-117); Aspartate Amino Transferase 11 U/L (0-37); Blood Urea Nitrogen 31 MG/DL (7-18); Calcium 8.3 MG/DL (8.5-10.1); Carbon Dioxide 28 MMOL/L (21-32); Estimated Glom Filtration Rate 69 ML/MIN; Glucose 228 MG/DL (74-106); Osmolality,Calculated 279.4 MOS/KG (273-304); Potassium 4.2 MMOL/L (3.5-5.1); Sodium 133 MMOL/L (136-145); Total Protein 7.1 G/DL (6.4-8.2)
[2020-11-15 06:03] LABS: Band Neutrophils 2 % (0-10); Eosinophils 2 % (0-10); Lymphocytes 23 % (20-55); Platelet Estimate Normal; Segmented Neutrophils 71 % (50-85); Total Cells Counted 100
[2020-11-15 06:04] LABS: Anisocytosis 2+; Atypical Lymphocytes Few; Macrocytosis Slight
[2020-11-15] MEDS: HYDROmorphone 2 MG/1 ML VIAL IV PRN ×4 (06:18→21:25)
[2020-11-15] MEDS: PIPERACILLIN/TAZOBACTAM 3,375 MG in SODIUM CHLORIDE 0.9% 100 ML IV SCH ×2 (08:38→16:57)
[2020-11-15] MEDS: INSULIN GLARGINE 100 UNIT/ML SUBCUT SCH (08:39)
[2020-11-15] MEDS: GABAPENTIN 300 MG CAPSULE PO SCH ×3 (08:39→21:26)
[2020-11-15] MEDS: POTASSIUM CHLORIDE 20 MEQ TABLET PO SCH ×2 (08:39→21:26)
[2020-11-15] MEDS: FUROSEMIDE 40 MG TABLET PO SCH (08:39)
[2020-11-15] MEDS: PANTOPRAZOLE 40 MG TABLET PO SCH (08:40)
[2020-11-15] MEDS: DOCUSATE SODIUM 100 MG CAPSULE PO SCH ×2 (08:40→21:26)
[2020-11-15] MEDS: RIVAROXABAN 20 MG TABLET PO SCH (08:40)
[2020-11-15] MEDS: COLLAGENASE OINT 30 GM TUBE TOP SCH (08:41)
[2020-11-15] MEDS: carvediloL 3.125 MG TABLET PO SCH ×2 (08:50→21:26)
[2020-11-15] MEDS: TRIAMCINOLONE 0.1% CREAM 15 GM TUBE TOP SCH ×2 (15:09→21:26)
[2020-11-16] MEDS: PIPERACILLIN/TAZOBACTAM 3,375 MG in SODIUM CHLORIDE 0.9% 100 ML IV SCH ×3 (00:30→17:03)
[2020-11-16] MEDS: HYDROmorphone 2 MG/1 ML VIAL IV PRN ×4 (00:42→21:26)
[2020-11-16] MEDS: INSULIN REGULAR 100 UNIT/ML SUBCUT SCH ×4 (00:52→18:17)
[2020-11-16] MEDS: KETOROLAC 30 MG/1 ML VIAL IV SCH ×5 (04:07→23:17)
[2020-11-16 05:47] LABS: Basophils % 0.4 % (0.0-0.8); Eosinophils # 0.2 10*3/uL (0.0-0.87); Eosinophils % 3.5 % (0.00-10.9); Hematocrit 30.5 VOL% (35.7-47.0); Hemoglobin 9.8 GM/DL (12.0-16.0); Immature Granulocytes % 0.6 %; Immature Granulocytes Absolute 0.04 #; Lymphocytes % 29.3 % (21.3-54.2); Mean Corpuscular HGB Conc 32.1 GM/DL (32-36); Mean Corpuscular Volume 89.4 FL (87-102); Mean Platelet Volume 10.3 FL (9.6-12.0); Monocytes % 6.2 % (1.7-12.7); Platelet Count 455 T/CUMM (130-400); Red Blood Count 3.41 MC/CUMM (3.8-5.5); Red Cell Distribution Width 12.8 % (9.3-17.3); White Blood Count 6.8 T/CUMM (4-12)
[2020-11-16 06:31] LABS: Albumin 1.9 G/DL (3.4-5.0); Bilirubin,Total 0.4 MG/DL (0.20-1.00); Calcium 8.4 MG/DL (8.5-10.1); Osmolality,Calculated 284.5 MOS/KG (273-304); Total Protein 7.5 G/DL (6.4-8.2)
[2020-11-16 07:07] LABS: Anisocytosis 1+; Macrocytosis Slight; Platelet Estimate Normal
[2020-11-16] MEDS: FUROSEMIDE 40 MG TABLET PO SCH (10:06)
[2020-11-16] MEDS: DOCUSATE SODIUM 100 MG CAPSULE PO SCH ×2 (10:06→21:28)
[2020-11-16] MEDS: PANTOPRAZOLE 40 MG TABLET PO SCH (10:06)
[2020-11-16] MEDS: carvediloL 3.125 MG TABLET PO SCH ×2 (10:06→21:27)
[2020-11-16] MEDS: GABAPENTIN 300 MG CAPSULE PO SCH ×3 (10:06→21:28)
[2020-11-16] MEDS: RIVAROXABAN 20 MG TABLET PO SCH (10:07)
[2020-11-16] MEDS: TRIAMCINOLONE 0.1% CREAM 15 GM TUBE TOP SCH ×2 (10:08→23:12)
[2020-11-16] MEDS: POTASSIUM CHLORIDE 20 MEQ TABLET PO SCH ×2 (10:08→21:28)
[2020-11-16] MEDS: COLLAGENASE OINT 30 GM TUBE TOP SCH (10:09)
[2020-11-16] MEDS: INSULIN GLARGINE 100 UNIT/ML SUBCUT SCH ×3 (10:29→11:23)
[2020-11-16] MEDS: diphenhydrAMINE CAP 25 MG CAPSULE PO PRN (12:45)
[2020-11-16] MEDS: methylPREDNISolone SOD SUC 40 MG/1 ML VIAL IV SCH (13:14)
[2020-11-17] MEDS: methylPREDNISolone SOD SUC 40 MG/1 ML VIAL IV SCH ×2 (02:05→12:46)
[2020-11-17] MEDS: PIPERACILLIN/TAZOBACTAM 3,375 MG in SODIUM CHLORIDE 0.9% 100 ML IV SCH ×2 (02:06→11:08)
[2020-11-17] MEDS: INSULIN REGULAR 100 UNIT/ML SUBCUT SCH ×3 (02:06→12:46)
[2020-11-17] MEDS: HYDROmorphone 2 MG/1 ML VIAL IV PRN ×4 (02:06→14:53)
[2020-11-17] MEDS ORDERED: INSULIN REGULAR 100 UNIT/ML SUBCUT ONE (04:14)
[2020-11-17] MEDS: KETOROLAC 30 MG/1 ML VIAL IV SCH (05:59)
[2020-11-17 06:14] LABS: Basophils % 0.1 % (0.0-0.8); Hematocrit 27.4 VOL% (35.7-47.0); Hemoglobin 8.7 GM/DL (12.0-16.0); Immature Granulocytes % 0.8 %; Immature Granulocytes Absolute 0.09 #; Lymphocytes # 1.1 10*3/uL (1.4-4.0); Mean Corpuscular HGB Conc 31.8 GM/DL (32-36); Mean Corpuscular Volume 89.5 FL (87-102); Mean Platelet Volume 9.8 FL (9.6-12.0); Monocytes % 1.4 % (1.7-12.7); Neutrophils % 88.7 % (38.7-73.9); Platelet Count 495 T/CUMM (130-400); Red Blood Count 3.06 MC/CUMM (3.8-5.5); Red Cell Distribution Width 12.8 % (9.3-17.3); White Blood Count 11.7 T/CUMM (4-12)
[2020-11-17 07:06] LABS: Albumin 1.9 G/DL (3.4-5.0); Bilirubin,Total 0.6 MG/DL (0.20-1.00); Calcium 8.5 MG/DL (8.5-10.1); Osmolality,Calculated 282.8 MOS/KG (273-304); Potassium 5.3 MMOL/L (3.5-5.1); Total Protein 7.7 G/DL (6.4-8.2)
[2020-11-17] MEDS ORDERED: GLUCAGON 1 MG VIAL IM PRN (08:48)
[2020-11-17] MEDS ORDERED: DEXTROSE 50% 25 GM/50 ML VIAL IV PRN (08:48)
[2020-11-17] MEDS: carvediloL 3.125 MG TABLET PO SCH (08:50)
[2020-11-17] MEDS: PANTOPRAZOLE 40 MG TABLET PO SCH (08:50)
[2020-11-17] MEDS: GABAPENTIN 300 MG CAPSULE PO SCH ×2 (08:50→14:53)
[2020-11-17] MEDS: RIVAROXABAN 20 MG TABLET PO SCH (08:50)
[2020-11-17] MEDS: FUROSEMIDE 40 MG TABLET PO SCH (08:50)
[2020-11-17] MEDS: DOCUSATE SODIUM 100 MG CAPSULE PO SCH (08:50)
[2020-11-17] MEDS: INSULIN GLARGINE 100 UNIT/ML SUBCUT SCH (08:51)
[2020-11-17] MEDS: COLLAGENASE OINT 30 GM TUBE TOP SCH (08:53)
[2020-11-17] MEDS: TRIAMCINOLONE 0.1% CREAM 15 GM TUBE TOP SCH (08:54)
[2020-11-17] MEDS ORDERED: POLYETHYLENE GLYCOL POWDER 17 GM PACK PO SCH (09:00)
[2020-11-17] MEDS ORDERED: LEVOFLOXACIN 500 MG TABLET PO SCH (09:00)
[2020-11-17 11:58] VITALS: BP 146/84
== END 2020-11-17 17:13 | disposition home or self-care (01) | DRG 197 ==
LOC: N.ED 17:16 → N.EDINP 20:02 → N.3E 20:40
PROVIDERS: ADMIT Family Medicine; ATTEND Family Medicine

== ENCOUNTER 2020-11-24 21:00 | Inpatient (IN) ==
[2020-11-24] MEDS ORDERED: CLINDAMYCIN INJ 600 MG/50 ML PREMIX IV STA (22:25)
[2020-11-24] MEDS ORDERED: hydrALAZINE 20 MG/1 ML VIAL IV STA (22:25)
[2020-11-24] MEDS ORDERED: VANCOMYCIN INJ 1,000 MG in SODIUM CHLORIDE 0.9% 250 ML IV STA ×2 (22:25→22:29)
[2020-11-24] MEDS ORDERED: SODIUM CHLORIDE 0.9% 500 ML IV STA (22:25)
[2020-11-25] MEDS ORDERED: MORPHINE 2 MG/1 ML SYRINGE IV STA (00:23)
[2020-11-25] MEDS ORDERED: ONDANSETRON 4 MG/2 ML VIAL IV STA (00:23)
[2020-11-25 00:47] LABS: Basophils # 0.1 10*3/uL (0.0-0.2); Basophils % 0.5 % (0.0-0.8); Eosinophils # 0.2 10*3/uL (0.0-0.87); Eosinophils % 1.9 % (0.00-10.9); Hematocrit 28.7 VOL% (35.7-47.0); Hemoglobin 9.1 GM/DL (12.0-16.0); Immature Granulocytes % 0.9 %; Mean Corpuscular HGB Conc 31.7 GM/DL (32-36); Mean Platelet Volume 9.8 FL (9.6-12.0); Monocytes % 4.2 % (1.7-12.7); Neutrophils % 65.5 % (38.7-73.9); Platelet Count 407 T/CUMM (130-400); Red Blood Count 3.19 MC/CUMM (3.8-5.5); Red Cell Distribution Width 13.3 % (9.3-17.3)
[2020-11-25 00:55] LABS: Alanine Aminotransferase < 9 U/L (13-56); Albumin 2.3 G/DL (3.4-5.0); Alkaline Phosphatase 132 U/L (45-117); Amylase 27 U/L (25-115); Aspartate Amino Transferase 8 U/L (0-37); Bilirubin,Total < 0.39 MG/DL (0.20-1.00); Blood Urea Nitrogen 18 MG/DL (7-18); Calcium 8.5 MG/DL (8.5-10.1); Carbon Dioxide 30 MMOL/L (21-32); Estimated Glom Filtration Rate 73 ML/MIN; Glucose 362 MG/DL (74-106); Osmolality,Calculated 282.4 MOS/KG (273-304); Potassium 4.3 MMOL/L (3.5-5.1); Sodium 133 MMOL/L (136-145); Total Protein 7.9 G/DL (6.4-8.2)
[2020-11-25 00:58] LABS: Bilirubin,Urine Negative (Negative); Blood, Urine Negative (Negative); Glucose,Urine (UA) >=500 mg/dL (Negative); Ketones,Urine Negative (Negative); Mucus,Urine Occasional /LPF (Occasional); Nitrite,Urine Negative (Negative); Protein,Urine Negative; RBC,Urine 12 /HPF (0-4); Squamous Epithelial Cell,Urine Occasional /HPF (0-10); Urine Appearance Slightly Hazy (Clear); Urine Color Yellow (Yellow); Urine Specific Gravity 1.023 (1.001-1.035); Urine Urobilinogen < 2.0 EU/DL (0.2-1.0)
[2020-11-25] MEDS ORDERED: LEVOFLOXACIN 500 MG TABLET PO SCH (04:19)
[2020-11-25] MEDS ORDERED: DEXTROSE 50% 25 GM/50 ML VIAL IV PRN (04:19)
[2020-11-25] MEDS ORDERED: BACLOFEN 10 MG TABLET PO PRN (04:19)
[2020-11-25] MEDS ORDERED: HYDROmorphone 2 MG/1 ML VIAL IV PRN ×2 (04:19→08:36)
[2020-11-25] MEDS ORDERED: GLUCAGON 1 MG VIAL IM PRN (04:19)
[2020-11-25] MEDS: ONDANSETRON 4 MG/2 ML VIAL IV PRN ×3 (05:46→18:30)
[2020-11-25] MEDS: SODIUM CHLORIDE 0.9% 1,000 ML IV SCH ×2 (05:48→21:30)
[2020-11-25] MEDS: ONDANSETRON 4 MG TABLET PO SCH ×2 (05:51→10:21)
[2020-11-25] MEDS: INSULIN REGULAR 100 UNIT/ML SUBCUT SCH ×3 (06:00→18:34)
[2020-11-25 06:40] LABS: INR 1.1; PT Patient Result 12.4 SECS (10.5-12.0)
[2020-11-25] MEDS ORDERED: carvediloL 3.125 MG TABLET PO SCH (09:00)
[2020-11-25] MEDS ORDERED: PANTOPRAZOLE 40 MG TABLET PO SCH (09:00)
[2020-11-25] MEDS ORDERED: INSULIN LISPRO 100 UNIT/ML SUBCUT SCH (09:00)
[2020-11-25] MEDS ORDERED: hydrALAZINE 25 MG TABLET PO SCH (09:00)
[2020-11-25] MEDS ORDERED: MAGNESIUM CHLORIDE 64 MG TABLET PO SCH (09:00)
[2020-11-25] MEDS: PANTOPRAZOLE 40 MG TABLET PO SCH ×2 (10:21→21:30)
[2020-11-25] MEDS: DOCUSATE SODIUM 100 MG CAPSULE PO SCH ×2 (10:21→21:31)
[2020-11-25] MEDS: FUROSEMIDE 40 MG TABLET PO SCH ×2 (10:21→21:30)
[2020-11-25] MEDS: POLYETHYLENE GLYCOL POWDER 17 GM PACK PO SCH (10:21)
[2020-11-25] MEDS: PREGABALIN 100 MG CAPSULE PO SCH ×3 (10:22→21:30)
[2020-11-25] MEDS: POTASSIUM CHLORIDE 20 MEQ TABLET PO SCH ×2 (10:22→21:31)
[2020-11-25] MEDS: MULTIVITAMIN (CENTRUM) TABLET PO SCH (10:23)
[2020-11-25] MEDS: INSULIN GLARGINE 100 UNIT/ML SUBCUT SCH (10:23)
[2020-11-25] MEDS: COLLAGENASE OINT 30 GM TUBE TOP SCH (10:24)
[2020-11-25] MEDS: LIDOCAINE 5% PATCH TRANSDERM SCH (10:24)
[2020-11-25] MEDS: CLINDAMYCIN INJ 600 MG/50 ML PREMIX IV SCH ×2 (10:33→17:23)
[2020-11-25] MEDS: HYDROmorphone 2 MG/1 ML VIAL IV PRN ×3 (13:38→23:01)
[2020-11-25] MEDS: SODIUM HYPOCHLORITE 0.25% IRRIG 473 ML BOTTLE TOP SCH (15:43)
[2020-11-25] MEDS: MENTHOL/ZINC OXIDE OINT 71 GM JAR TOP SCH (21:37)
[2020-11-26] MEDS: INSULIN REGULAR 100 UNIT/ML SUBCUT SCH ×4 (00:26→18:14)
[2020-11-26] MEDS: CLINDAMYCIN INJ 600 MG/50 ML PREMIX IV SCH ×3 (00:26→16:12)
[2020-11-26 04:36] LABS: Basophils % 0.4 % (0.0-0.8); Eosinophils # 0.2 10*3/uL (0.0-0.87); Eosinophils % 2.3 % (0.00-10.9); Hematocrit 30.1 VOL% (35.7-47.0); Hemoglobin 9.3 GM/DL (12.0-16.0); Immature Granulocytes % 0.7 %; Immature Granulocytes Absolute 0.07 #; Lymphocytes # 2.8 10*3/uL (1.4-4.0); Lymphocytes % 29.4 % (21.3-54.2); Mean Corpuscular HGB Conc 30.9 GM/DL (32-36); Mean Corpuscular Volume 90.1 FL (87-102); Mean Platelet Volume 9.1 FL (9.6-12.0); Monocytes % 4.4 % (1.7-12.7); Neutrophils % 62.8 % (38.7-73.9); Platelet Count 413 T/CUMM (130-400); Red Blood Count 3.34 MC/CUMM (3.8-5.5); Red Cell Distribution Width 13.2 % (9.3-17.3); White Blood Count 9.5 T/CUMM (4-12)
[2020-11-26 04:57] LABS: Hypochromasia 1+; Microcytosis 1+
[2020-11-26 04:58] LABS: Platelet Estimate Increased
[2020-11-26 05:03] LABS: Albumin 2.2 G/DL (3.4-5.0); Bilirubin,Total 0.5 MG/DL (0.20-1.00); Calcium 8.6 MG/DL (8.5-10.1); Osmolality,Calculated 276.8 MOS/KG (273-304); Potassium 4.2 MMOL/L (3.5-5.1); Total Protein 7.6 G/DL (6.4-8.2)
[2020-11-26] MEDS: PREGABALIN 100 MG CAPSULE PO SCH ×3 (08:36→20:56)
[2020-11-26] MEDS: MULTIVITAMIN (CENTRUM) TABLET PO SCH (08:36)
[2020-11-26] MEDS: FUROSEMIDE 40 MG TABLET PO SCH ×2 (08:36→20:57)
[2020-11-26] MEDS: DOCUSATE SODIUM 100 MG CAPSULE PO SCH ×2 (08:37→20:58)
[2020-11-26] MEDS: POLYETHYLENE GLYCOL POWDER 17 GM PACK PO SCH (08:37)
[2020-11-26] MEDS: POTASSIUM CHLORIDE 20 MEQ TABLET PO SCH ×2 (08:37→20:57)
[2020-11-26] MEDS: PANTOPRAZOLE 40 MG TABLET PO SCH ×2 (08:37→20:57)
[2020-11-26] MEDS: LIDOCAINE 5% PATCH TRANSDERM SCH (08:37)
[2020-11-26] MEDS: COLLAGENASE OINT 30 GM TUBE TOP SCH (08:38)
[2020-11-26] MEDS: MENTHOL/ZINC OXIDE OINT 71 GM JAR TOP SCH ×2 (09:30→20:58)
[2020-11-26] MEDS: INSULIN GLARGINE 100 UNIT/ML SUBCUT SCH (09:30)
[2020-11-26] MEDS: HYDROmorphone 2 MG/1 ML VIAL IV PRN ×4 (11:06→21:42)
[2020-11-26] MEDS: SODIUM HYPOCHLORITE 0.25% IRRIG 473 ML BOTTLE TOP SCH (12:24)
[2020-11-26] MEDS: SODIUM CHLORIDE 0.9% 1,000 ML IV SCH ×2 (15:54→16:05)
[2020-11-27] MEDS: CLINDAMYCIN INJ 600 MG/50 ML PREMIX IV SCH ×3 (00:30→17:47)
[2020-11-27] MEDS: INSULIN REGULAR 100 UNIT/ML SUBCUT SCH ×4 (00:30→17:59)
[2020-11-27] MEDS: HYDROmorphone 2 MG/1 ML VIAL IV PRN ×7 (00:38→21:43)
[2020-11-27] MEDS: SODIUM CHLORIDE 0.9% 1,000 ML IV SCH ×3 (04:36→21:47)
[2020-11-27 05:43] LABS: Basophils % 0.5 % (0.0-0.8); Eosinophils # 0.2 10*3/uL (0.0-0.87); Eosinophils % 2.3 % (0.00-10.9); Hematocrit 31.9 VOL% (35.7-47.0); Hemoglobin 10.1 GM/DL (12.0-16.0); Immature Granulocytes % 0.2 %; Immature Granulocytes Absolute 0.02 #; Lymphocytes # 3.3 10*3/uL (1.4-4.0); Mean Corpuscular HGB Conc 31.7 GM/DL (32-36); Mean Corpuscular Volume 90.4 FL (87-102); Mean Platelet Volume 9.4 FL (9.6-12.0); Monocytes % 6.2 % (1.7-12.7); Neutrophils % 52.8 % (38.7-73.9); Platelet Count 417 T/CUMM (130-400); Red Blood Count 3.53 MC/CUMM (3.8-5.5); Red Cell Distribution Width 13.5 % (9.3-17.3); White Blood Count 8.7 T/CUMM (4-12)
[2020-11-27 06:06] LABS: Albumin 2.3 G/DL (3.4-5.0); Bilirubin,Total 1.1 MG/DL (0.20-1.00); Calcium 8.7 MG/DL (8.5-10.1); Lymphocytes 36 % (20-55); Platelet Estimate Increased; Potassium 4.3 MMOL/L (3.5-5.1); Segmented Neutrophils 59 % (50-85); Total Cells Counted 100
[2020-11-27] MEDS: RIVAROXABAN 20 MG TABLET PO SCH (11:23)
[2020-11-27] MEDS: MULTIVITAMIN (CENTRUM) TABLET PO SCH (12:31)
[2020-11-27] MEDS: PREGABALIN 100 MG CAPSULE PO SCH ×3 (12:31→21:14)
[2020-11-27] MEDS: POTASSIUM CHLORIDE 20 MEQ TABLET PO SCH ×2 (12:31→21:14)
[2020-11-27] MEDS: DOCUSATE SODIUM 100 MG CAPSULE PO SCH ×2 (12:31→21:14)
[2020-11-27] MEDS: FUROSEMIDE 40 MG TABLET PO SCH ×2 (12:31→21:14)
[2020-11-27] MEDS: PANTOPRAZOLE 40 MG TABLET PO SCH ×2 (12:32→21:14)
[2020-11-27] MEDS: POLYETHYLENE GLYCOL POWDER 17 GM PACK PO SCH (12:32)
[2020-11-27] MEDS: INSULIN GLARGINE 100 UNIT/ML SUBCUT SCH (13:44)
[2020-11-27] MEDS: MENTHOL/ZINC OXIDE OINT 71 GM JAR TOP SCH ×2 (13:45→21:15)
[2020-11-27] MEDS: LIDOCAINE 5% PATCH TRANSDERM SCH (13:45)
[2020-11-27] MEDS: COLLAGENASE OINT 30 GM TUBE TOP SCH (14:11)
[2020-11-27] MEDS: SODIUM HYPOCHLORITE 0.25% IRRIG 473 ML BOTTLE TOP SCH (14:11)
[2020-11-28] MEDS: INSULIN REGULAR 100 UNIT/ML SUBCUT SCH ×4 (00:51→17:31)
[2020-11-28] MEDS: CLINDAMYCIN INJ 600 MG/50 ML PREMIX IV SCH ×3 (00:52→17:27)
[2020-11-28] MEDS: HYDROmorphone 2 MG/1 ML VIAL IV PRN ×6 (01:42→15:16)
[2020-11-28 05:13] LABS: Basophils # 0.1 10*3/uL (0.0-0.2); Basophils % 0.7 % (0.0-0.8); Eosinophils # 0.2 10*3/uL (0.0-0.87); Eosinophils % 2.1 % (0.00-10.9); Hematocrit 26.6 VOL% (35.7-47.0); Hemoglobin 8.5 GM/DL (12.0-16.0); Immature Granulocytes % 0.3 %; Immature Granulocytes Absolute 0.03 #; Lymphocytes # 2.9 10*3/uL (1.4-4.0); Lymphocytes % 32.8 % (21.3-54.2); Mean Platelet Volume 9.4 FL (9.6-12.0); Monocytes % 7.7 % (1.7-12.7); Neutrophils % 56.4 % (38.7-73.9); Platelet Count 367 T/CUMM (130-400); Red Blood Count 2.99 MC/CUMM (3.8-5.5); Red Cell Distribution Width 13.3 % (9.3-17.3); White Blood Count 8.7 T/CUMM (4-12)
[2020-11-28 05:38] LABS: Albumin 2.2 G/DL (3.4-5.0); Bilirubin,Total 0.6 MG/DL (0.20-1.00); Calcium 8.5 MG/DL (8.5-10.1); Osmolality,Calculated 280.7 MOS/KG (273-304); Potassium 4.2 MMOL/L (3.5-5.1); Total Protein 7.4 G/DL (6.4-8.2)
[2020-11-28 05:46] LABS: Anisocytosis 2+; Eosinophils 5 % (0-10); Lymphocytes 34 % (20-55); Macrocytosis Slight; Platelet Estimate Normal; Segmented Neutrophils 55 % (50-85); Total Cells Counted 100
[2020-11-28] MEDS ORDERED: ROCURONIUM 50 MG/5 ML VIAL IV ONE (07:57)
[2020-11-28] MEDS ORDERED: LIDOCAINE 2% 5 ML VIAL ONE (07:57)
[2020-11-28] MEDS ORDERED: propofoL 200 MG/20 ML VIAL IV ONE (07:57)
[2020-11-28] MEDS ORDERED: fentaNYL 100 MCG/2 ML VIAL ONE (07:57)
[2020-11-28] MEDS ORDERED: SUCCINYLCHOLINE 200 MG/10 ML VIAL ONE (07:57)
[2020-11-28] MEDS ORDERED: MIDAZOLAM 2 MG/2 ML VIAL ONE (07:57)
[2020-11-28] MEDS ORDERED: PHENYLEPHRINE 1 MG/10 ML SYRINGE IV ONE (08:34)
[2020-11-28] MEDS ORDERED: ETOMIDATE 40 MG/20 ML VIAL IV ONE (08:35)
[2020-11-28] MEDS ORDERED: PHENYLEPHRINE 10 MG/1 ML VIAL IV ONE (08:35)
[2020-11-28] MEDS ORDERED: SODIUM CHLORIDE 0.9% 100 ML IV ONE (08:58)
[2020-11-28] MEDS ORDERED: SODIUM CHLORIDE 0.9% 1,000 ML IV PRN (09:34)
[2020-11-28] MEDS ORDERED: ALBUMIN 5% 12.5 GM/250 ML VIAL IV ONE (09:37)
[2020-11-28] MEDS ORDERED: SODIUM CHLORIDE 0.9% 1,000 ML IV ONE ×2 (10:15→10:26)
[2020-11-28] MEDS ORDERED: SEVOFLURANE 1 UNIT/15 MINUTE INH ONE (10:15)
[2020-11-28] MEDS ORDERED: ONDANSETRON 4 MG/2 ML VIAL IV PRN (10:40)
[2020-11-28] MEDS: LIDOCAINE 5% PATCH TRANSDERM SCH (13:05)
[2020-11-28] MEDS: POTASSIUM CHLORIDE 20 MEQ TABLET PO SCH ×2 (13:06→21:02)
[2020-11-28] MEDS: DOCUSATE SODIUM 100 MG CAPSULE PO SCH ×2 (13:06→21:02)
[2020-11-28] MEDS: PREGABALIN 100 MG CAPSULE PO SCH ×3 (13:06→21:02)
[2020-11-28] MEDS: PANTOPRAZOLE 40 MG TABLET PO SCH ×2 (13:06→21:02)
[2020-11-28] MEDS: MULTIVITAMIN (CENTRUM) TABLET PO SCH (13:06)
[2020-11-28] MEDS: FUROSEMIDE 40 MG TABLET PO SCH ×2 (13:06→21:02)
[2020-11-28] MEDS: SODIUM HYPOCHLORITE 0.25% IRRIG 473 ML BOTTLE TOP SCH (13:07)
[2020-11-28] MEDS: MENTHOL/ZINC OXIDE OINT 71 GM JAR TOP SCH ×2 (13:07→21:03)
[2020-11-28] MEDS: POLYETHYLENE GLYCOL POWDER 17 GM PACK PO SCH (13:07)
[2020-11-28] MEDS: COLLAGENASE OINT 30 GM TUBE TOP SCH (13:08)
[2020-11-28] MEDS: INSULIN GLARGINE 100 UNIT/ML SUBCUT SCH (13:08)
[2020-11-28] MEDS ORDERED: NALOXONE 0.4 MG/ML VIAL IV PRN (15:23)
[2020-11-28] MEDS: HYDROmorphone PCA 30 MG/30 ML SYRINGE IV SCH (16:45)
[2020-11-28] MEDS: SODIUM CHLORIDE 0.9% 1,000 ML IV SCH (17:27)
[2020-11-28] MEDS: ACETAMINOPHEN 325 MG TABLET PO PRN (21:02)
[2020-11-29] MEDS: INSULIN REGULAR 100 UNIT/ML SUBCUT SCH ×4 (00:04→19:19)
[2020-11-29] MEDS: CLINDAMYCIN INJ 600 MG/50 ML PREMIX IV SCH ×3 (00:42→16:04)
[2020-11-29] MEDS ORDERED: ERGOCALCIFEROL 50,000 UNIT CAPSULE PO SCH (01:12)
[2020-11-29 05:28] LABS: Basophils # 0.1 10*3/uL (0.0-0.2); Basophils % 0.4 % (0.0-0.8); Eosinophils # 0.1 10*3/uL (0.0-0.87); Hematocrit 24.5 VOL% (35.7-47.0); Hemoglobin 7.7 GM/DL (12.0-16.0); Immature Granulocytes % 0.6 %; Immature Granulocytes Absolute 0.08 #; Lymphocytes # 2.5 10*3/uL (1.4-4.0); Lymphocytes % 19.8 % (21.3-54.2); Mean Corpuscular HGB Conc 31.4 GM/DL (32-36); Mean Corpuscular Volume 89.4 FL (87-102); Mean Platelet Volume 9.7 FL (9.6-12.0); Monocytes % 9.4 % (1.7-12.7); Neutrophils % 68.8 % (38.7-73.9); Platelet Count 267 T/CUMM (130-400); Red Blood Count 2.74 MC/CUMM (3.8-5.5); Red Cell Distribution Width 14.4 % (9.3-17.3); White Blood Count 12.5 T/CUMM (4-12)
[2020-11-29 05:48] LABS: Alanine Aminotransferase < 9 U/L (13-56); Albumin 2.1 G/DL (3.4-5.0); Alkaline Phosphatase 73 U/L (45-117); Aspartate Amino Transferase 14 U/L (0-37); Blood Urea Nitrogen 17 MG/DL (7-18); Carbon Dioxide 29 MMOL/L (21-32); Glucose 104 MG/DL (74-106); Potassium 4.1 MMOL/L (3.5-5.1); Sodium 136 MMOL/L (136-145); Total Protein 6.5 G/DL (6.4-8.2)
[2020-11-29 06:06] LABS: Estimated Glom Filtration Rate 69 ML/MIN
[2020-11-29] MEDS: DOCUSATE SODIUM 100 MG CAPSULE PO SCH ×2 (09:10→21:01)
[2020-11-29] MEDS: POTASSIUM CHLORIDE 20 MEQ TABLET PO SCH ×2 (09:10→21:01)
[2020-11-29] MEDS: PANTOPRAZOLE 40 MG TABLET PO SCH ×2 (09:10→21:01)
[2020-11-29] MEDS: MULTIVITAMIN (CENTRUM) TABLET PO SCH (09:10)
[2020-11-29] MEDS: MENTHOL/ZINC OXIDE OINT 71 GM JAR TOP SCH ×2 (09:11→21:02)
[2020-11-29] MEDS: LIDOCAINE 5% PATCH TRANSDERM SCH (09:11)
[2020-11-29] MEDS: FUROSEMIDE 40 MG TABLET PO SCH ×2 (09:11→21:01)
[2020-11-29] MEDS: PREGABALIN 100 MG CAPSULE PO SCH ×3 (09:11→21:01)
[2020-11-29] MEDS: INSULIN GLARGINE 100 UNIT/ML SUBCUT SCH (09:12)
[2020-11-29] MEDS: POLYETHYLENE GLYCOL POWDER 17 GM PACK PO SCH (09:13)
[2020-11-29] MEDS: COLLAGENASE OINT 30 GM TUBE TOP SCH (10:27)
[2020-11-29] MEDS: SODIUM HYPOCHLORITE 0.25% IRRIG 473 ML BOTTLE TOP SCH (10:27)
[2020-11-29] MEDS: SODIUM CHLORIDE 0.9% 1,000 ML IV SCH (16:04)
[2020-11-29] MEDS: HYDROmorphone PCA 30 MG/30 ML SYRINGE IV SCH (17:59)
[2020-11-29 18:00] LABS: Hematocrit 29.6 VOL% (35.7-47.0); Hemoglobin 9.5 GM/DL (12.0-16.0)
[2020-11-29] MEDS: ACETAMINOPHEN 325 MG TABLET PO PRN (21:01)
[2020-11-30] MEDS: INSULIN REGULAR 100 UNIT/ML SUBCUT SCH ×4 (00:11→17:44)
[2020-11-30] MEDS: CLINDAMYCIN INJ 600 MG/50 ML PREMIX IV SCH ×3 (00:38→17:41)
[2020-11-30 05:31] LABS: Basophils # 0.1 10*3/uL (0.0-0.2); Basophils % 0.3 % (0.0-0.8); Eosinophils # 0.2 10*3/uL (0.0-0.87); Eosinophils % 1.3 % (0.00-10.9); Hemoglobin 8.1 GM/DL (12.0-16.0); Immature Granulocytes % 1.3 %; Immature Granulocytes Absolute 0.18 #; Lymphocytes # 3.4 10*3/uL (1.4-4.0); Lymphocytes % 23.9 % (21.3-54.2); Mean Corpuscular HGB Conc 32.4 GM/DL (32-36); Mean Platelet Volume 9.4 FL (9.6-12.0); Monocytes % 11.2 % (1.7-12.7); Platelet Count 260 T/CUMM (130-400); Red Blood Count 2.81 MC/CUMM (3.8-5.5); Red Cell Distribution Width 14.4 % (9.3-17.3); White Blood Count 14.4 T/CUMM (4-12)
[2020-11-30 05:47] LABS: Bilirubin,Total 0.6 MG/DL (0.20-1.00); Calcium 8.6 MG/DL (8.5-10.1); Osmolality,Calculated 275.5 MOS/KG (273-304); Potassium 3.8 MMOL/L (3.5-5.1); Total Protein 6.9 G/DL (6.4-8.2)
[2020-11-30] MEDS: SODIUM CHLORIDE 0.9% 1,000 ML IV SCH ×2 (10:56→20:24)
[2020-11-30] MEDS: LIDOCAINE 5% PATCH TRANSDERM SCH (10:57)
[2020-11-30] MEDS: POLYETHYLENE GLYCOL POWDER 17 GM PACK PO SCH (10:58)
[2020-11-30] MEDS: FUROSEMIDE 40 MG TABLET PO SCH ×2 (10:59→21:26)
[2020-11-30] MEDS: PANTOPRAZOLE 40 MG TABLET PO SCH ×2 (11:00→21:26)
[2020-11-30] MEDS: POTASSIUM CHLORIDE 20 MEQ TABLET PO SCH ×2 (11:00→21:26)
[2020-11-30] MEDS: MULTIVITAMIN (CENTRUM) TABLET PO SCH (11:01)
[2020-11-30] MEDS: DOCUSATE SODIUM 100 MG CAPSULE PO SCH ×2 (11:01→21:26)
[2020-11-30] MEDS: SODIUM HYPOCHLORITE 0.25% IRRIG 473 ML BOTTLE TOP SCH (11:02)
[2020-11-30] MEDS: PREGABALIN 100 MG CAPSULE PO SCH ×3 (11:02→21:26)
[2020-11-30] MEDS: MENTHOL/ZINC OXIDE OINT 71 GM JAR TOP SCH ×2 (11:03→21:28)
[2020-11-30] MEDS: COLLAGENASE OINT 30 GM TUBE TOP SCH (11:03)
[2020-11-30] MEDS: INSULIN GLARGINE 100 UNIT/ML SUBCUT SCH (11:06)
[2020-11-30] MEDS ORDERED: MAGNESIUM HYDROXIDE SUSP 30 ML UDCUP PO ONE (11:31)
[2020-11-30] MEDS: HYDROmorphone PCA 30 MG/30 ML SYRINGE IV SCH (19:53)
[2020-11-30] MEDS: SKIN HEALING OINT (AQUAPHOR) 50 GM TUBE TOP PRN (21:27)
[2020-12-01] MEDS: INSULIN REGULAR 100 UNIT/ML SUBCUT SCH ×5 (01:25→23:44)
[2020-12-01] MEDS: CLINDAMYCIN INJ 600 MG/50 ML PREMIX IV SCH ×3 (01:26→16:31)
[2020-12-01 06:17] LABS: Basophils # 0.1 10*3/uL (0.0-0.2); Basophils % 0.4 % (0.0-0.8); Eosinophils # 0.1 10*3/uL (0.0-0.87); Eosinophils % 1.1 % (0.00-10.9); Hematocrit 26.6 VOL% (35.7-47.0); Hemoglobin 8.1 GM/DL (12.0-16.0); Immature Granulocytes % 0.7 %; Immature Granulocytes Absolute 0.08 #; Lymphocytes # 2.3 10*3/uL (1.4-4.0); Mean Corpuscular HGB Conc 30.5 GM/DL (32-36); Mean Corpuscular Volume 93.7 FL (87-102); Mean Platelet Volume 9.8 FL (9.6-12.0); Monocytes % 6.7 % (1.7-12.7); Neutrophils % 72.1 % (38.7-73.9); Platelet Count 258 T/CUMM (130-400); Red Blood Count 2.84 MC/CUMM (3.8-5.5); Red Cell Distribution Width 14.4 % (9.3-17.3); White Blood Count 11.9 T/CUMM (4-12)
[2020-12-01 06:38] LABS: Bilirubin,Total 0.5 MG/DL (0.20-1.00); Calcium 8.7 MG/DL (8.5-10.1); Osmolality,Calculated 276.5 MOS/KG (273-304); Potassium 4.3 MMOL/L (3.5-5.1); Total Protein 7.2 G/DL (6.4-8.2)
[2020-12-01] MEDS: POLYETHYLENE GLYCOL POWDER 17 GM PACK PO SCH (08:24)
[2020-12-01] MEDS: POTASSIUM CHLORIDE 20 MEQ TABLET PO SCH ×2 (08:24→21:02)
[2020-12-01] MEDS: PREGABALIN 100 MG CAPSULE PO SCH ×3 (08:25→21:19)
[2020-12-01] MEDS: FUROSEMIDE 40 MG TABLET PO SCH ×2 (08:25→21:02)
[2020-12-01] MEDS: MULTIVITAMIN (CENTRUM) TABLET PO SCH (08:25)
[2020-12-01] MEDS: PANTOPRAZOLE 40 MG TABLET PO SCH ×2 (08:25→21:01)
[2020-12-01] MEDS: DOCUSATE SODIUM 100 MG CAPSULE PO SCH ×2 (08:25→21:02)
[2020-12-01] MEDS: LIDOCAINE 5% PATCH TRANSDERM SCH (08:26)
[2020-12-01] MEDS: INSULIN GLARGINE 100 UNIT/ML SUBCUT SCH (08:27)
[2020-12-01] MEDS: MENTHOL/ZINC OXIDE OINT 71 GM JAR TOP SCH ×2 (08:30→21:07)
[2020-12-01] MEDS: SODIUM HYPOCHLORITE 0.25% IRRIG 473 ML BOTTLE TOP SCH (08:30)
[2020-12-01] MEDS: COLLAGENASE OINT 30 GM TUBE TOP SCH (10:12)
[2020-12-01] MEDS: SODIUM CHLORIDE 0.9% 1,000 ML IV SCH (10:22)
[2020-12-01] MEDS: RIVAROXABAN 20 MG TABLET PO SCH ×2 (12:51→12:52)
[2020-12-01] MEDS: GABAPENTIN 100 MG CAPSULE PO SCH ×2 (16:31→21:01)
[2020-12-01] MEDS: HYDROmorphone 2 MG/1 ML VIAL IV PRN ×3 (18:37→23:34)
[2020-12-02] MEDS: CLINDAMYCIN INJ 600 MG/50 ML PREMIX IV SCH ×3 (01:00→18:07)
[2020-12-02] MEDS: HYDROmorphone 2 MG/1 ML VIAL IV PRN ×4 (03:52→22:48)
[2020-12-02] MEDS: SODIUM CHLORIDE 0.9% 1,000 ML IV SCH (04:45)
[2020-12-02 05:26] LABS: Basophils # 0.1 10*3/uL (0.0-0.2); Basophils % 0.5 % (0.0-0.8); Eosinophils # 0.3 10*3/uL (0.0-0.87); Hematocrit 22.6 VOL% (35.7-47.0); Hemoglobin 7.1 GM/DL (12.0-16.0); Immature Granulocytes % 0.5 %; Immature Granulocytes Absolute 0.06 #; Lymphocytes # 2.3 10*3/uL (1.4-4.0); Lymphocytes % 20.2 % (21.3-54.2); Mean Corpuscular HGB Conc 31.4 GM/DL (32-36); Mean Corpuscular Volume 89.7 FL (87-102); Mean Platelet Volume 9.5 FL (9.6-12.0); Monocytes % 7.9 % (1.7-12.7); Neutrophils % 67.9 % (38.7-73.9); Platelet Count 305 T/CUMM (130-400); Red Blood Count 2.52 MC/CUMM (3.8-5.5); Red Cell Distribution Width 14.1 % (9.3-17.3); White Blood Count 11.3 T/CUMM (4-12)
[2020-12-02 05:42] LABS: Albumin 1.8 G/DL (3.4-5.0); Bilirubin,Total 0.4 MG/DL (0.20-1.00); Calcium 8.4 MG/DL (8.5-10.1); Osmolality,Calculated 279.7 MOS/KG (273-304); Potassium 4.1 MMOL/L (3.5-5.1); Total Protein 6.5 G/DL (6.4-8.2)
[2020-12-02] MEDS: INSULIN REGULAR 100 UNIT/ML SUBCUT SCH ×4 (05:44→23:53)
[2020-12-02] MEDS ORDERED: SODIUM CHLORIDE 0.9% 1,000 ML IV PRN (08:03)
[2020-12-02] MEDS: GABAPENTIN 100 MG CAPSULE PO SCH ×3 (09:58→20:35)
[2020-12-02] MEDS: MULTIVITAMIN (CENTRUM) TABLET PO SCH (09:58)
[2020-12-02] MEDS: PANTOPRAZOLE 40 MG TABLET PO SCH ×2 (09:58→20:36)
[2020-12-02] MEDS: POLYETHYLENE GLYCOL POWDER 17 GM PACK PO SCH (09:58)
[2020-12-02] MEDS: LIDOCAINE 5% PATCH TRANSDERM SCH (09:59)
[2020-12-02] MEDS: POTASSIUM CHLORIDE 20 MEQ TABLET PO SCH ×2 (09:59→20:35)
[2020-12-02] MEDS: FUROSEMIDE 40 MG TABLET PO SCH ×2 (09:59→20:34)
[2020-12-02] MEDS: DOCUSATE SODIUM 100 MG CAPSULE PO SCH ×2 (09:59→20:35)
[2020-12-02] MEDS: PREGABALIN 100 MG CAPSULE PO SCH ×3 (09:59→20:35)
[2020-12-02] MEDS: COLLAGENASE OINT 30 GM TUBE TOP SCH (10:01)
[2020-12-02] MEDS: MENTHOL/ZINC OXIDE OINT 71 GM JAR TOP SCH ×2 (10:01→22:41)
[2020-12-02] MEDS: SODIUM HYPOCHLORITE 0.25% IRRIG 473 ML BOTTLE TOP SCH (10:01)
[2020-12-02] MEDS: INSULIN GLARGINE 100 UNIT/ML SUBCUT SCH (10:08)
[2020-12-02] MEDS ORDERED: HEPARIN LOCK FLUSH 500 UNIT/5 ML SYRINGE IV PRN (17:38)
[2020-12-02 20:07] LABS: Hematocrit 31.5 VOL% (35.7-47.0); Hemoglobin 10.2 GM/DL (12.0-16.0)
[2020-12-02] MEDS: HEPARIN LOCK FLUSH 500 UNIT/5 ML SYRINGE IV SCH (22:41)
[2020-12-03] MEDS: INSULIN REGULAR 100 UNIT/ML SUBCUT SCH ×3 (05:39→18:31)
[2020-12-03] MEDS: HYDROmorphone 2 MG/1 ML VIAL IV PRN ×2 (05:42→13:43)
[2020-12-03] MEDS: PREGABALIN 100 MG CAPSULE PO SCH ×3 (10:39→20:41)
[2020-12-03] MEDS: PANTOPRAZOLE 40 MG TABLET PO SCH ×2 (10:39→20:42)
[2020-12-03] MEDS: POLYETHYLENE GLYCOL POWDER 17 GM PACK PO SCH (10:40)
[2020-12-03] MEDS: INSULIN GLARGINE 100 UNIT/ML SUBCUT SCH (10:40)
[2020-12-03] MEDS: POTASSIUM CHLORIDE 20 MEQ TABLET PO SCH ×2 (10:40→20:42)
[2020-12-03] MEDS: GABAPENTIN 100 MG CAPSULE PO SCH ×3 (10:40→20:42)
[2020-12-03] MEDS: MULTIVITAMIN (CENTRUM) TABLET PO SCH (10:40)
[2020-12-03] MEDS: FUROSEMIDE 40 MG TABLET PO SCH ×2 (10:41→20:42)
[2020-12-03] MEDS: MENTHOL/ZINC OXIDE OINT 71 GM JAR TOP SCH ×2 (10:41→20:40)
[2020-12-03] MEDS: HEPARIN LOCK FLUSH 500 UNIT/5 ML SYRINGE IV SCH ×2 (10:41→20:44)
[2020-12-03] MEDS: DOCUSATE SODIUM 100 MG CAPSULE PO SCH ×2 (10:41→20:41)
[2020-12-03] MEDS: SODIUM HYPOCHLORITE 0.25% IRRIG 473 ML BOTTLE TOP SCH (10:41)
[2020-12-03] MEDS: LIDOCAINE 5% PATCH TRANSDERM SCH (10:42)
[2020-12-03] MEDS: COLLAGENASE OINT 30 GM TUBE TOP SCH (10:42)
[2020-12-03] MEDS: RIVAROXABAN 20 MG TABLET PO SCH ×2 (10:44)
[2020-12-03] MEDS ORDERED: SERTRALINE 25 MG TABLET PO SCH (21:00)
[2020-12-04] MEDS: HYDROmorphone 2 MG/1 ML VIAL IV PRN ×4 (00:40→11:55)
[2020-12-04] MEDS: INSULIN REGULAR 100 UNIT/ML SUBCUT SCH ×2 (00:40→05:51)
[2020-12-04 07:54] LABS: Basophils # 0.1 10*3/uL (0.0-0.2); Basophils % 0.6 % (0.0-0.8); Eosinophils # 0.3 10*3/uL (0.0-0.87); Eosinophils % 2.6 % (0.00-10.9); Hematocrit 30.1 VOL% (35.7-47.0); Hemoglobin 9.8 GM/DL (12.0-16.0); Immature Granulocytes % 0.2 %; Immature Granulocytes Absolute 0.02 #; Lymphocytes # 3.1 10*3/uL (1.4-4.0); Lymphocytes % 32.8 % (21.3-54.2); Mean Corpuscular HGB Conc 32.6 GM/DL (32-36); Mean Corpuscular Volume 88.5 FL (87-102); Mean Platelet Volume 9.6 FL (9.6-12.0); Monocytes % 6.3 % (1.7-12.7); Neutrophils % 57.5 % (38.7-73.9); Platelet Count 402 T/CUMM (130-400); Red Cell Distribution Width 13.7 % (9.3-17.3); White Blood Count 9.5 T/CUMM (4-12)
[2020-12-04] MEDS: MULTIVITAMIN (CENTRUM) TABLET PO SCH (08:06)
[2020-12-04] MEDS: FUROSEMIDE 40 MG TABLET PO SCH (08:06)
[2020-12-04] MEDS: DOCUSATE SODIUM 100 MG CAPSULE PO SCH (08:06)
[2020-12-04 08:07] LABS: Calcium 8.7 MG/DL (8.5-10.1); Potassium 3.8 MMOL/L (3.5-5.1)
[2020-12-04] MEDS: RIVAROXABAN 20 MG TABLET PO SCH (08:07)
[2020-12-04] MEDS: POTASSIUM CHLORIDE 20 MEQ TABLET PO SCH (08:07)
[2020-12-04] MEDS: PANTOPRAZOLE 40 MG TABLET PO SCH (08:07)
[2020-12-04] MEDS: PREGABALIN 100 MG CAPSULE PO SCH ×2 (08:07→16:10)
[2020-12-04] MEDS: GABAPENTIN 100 MG CAPSULE PO SCH ×2 (08:08→16:10)
[2020-12-04] MEDS: POLYETHYLENE GLYCOL POWDER 17 GM PACK PO SCH (08:08)
[2020-12-04] MEDS: LIDOCAINE 5% PATCH TRANSDERM SCH (08:08)
[2020-12-04] MEDS: HEPARIN LOCK FLUSH 500 UNIT/5 ML SYRINGE IV SCH (08:08)
[2020-12-04] MEDS: INSULIN GLARGINE 100 UNIT/ML SUBCUT SCH (08:11)
[2020-12-04] MEDS: MENTHOL/ZINC OXIDE OINT 71 GM JAR TOP SCH (08:12)
[2020-12-04 10:29] VITALS: BP 117/69
[2020-12-04] MEDS: COLLAGENASE OINT 30 GM TUBE TOP SCH (11:13)
[2020-12-04] MEDS: SODIUM HYPOCHLORITE 0.25% IRRIG 473 ML BOTTLE TOP SCH (11:14)
[2020-12-04] MEDS ORDERED: INSULIN REGULAR 100 UNIT/ML SUBCUT SCH (11:30)
== END 2020-12-04 15:13 | DRG 305 ==
LOC: N.ED 21:00 → N.EDINP 11-25 01:09 → N.5E 11-25 04:30
PROVIDERS: ADMIT Family Medicine; ATTEND Family Medicine

== ENCOUNTER 2021-01-01 17:28 | Inpatient (IN) ==
[2021-01-01] MEDS ORDERED: SODIUM CHLORIDE 0.9% 1,000 ML IV STA ×2 (17:56→19:30)
[2021-01-01 18:22] LABS: Basophils % 0.1 % (0.0-0.8); Eosinophils % 0.1 % (0.00-10.9); Hematocrit 31.6 VOL% (35.7-47.0); Hemoglobin 10.4 GM/DL (12.0-16.0); Immature Granulocytes % 0.8 %; Immature Granulocytes Absolute 0.16 #; Lymphocytes # 1.8 10*3/uL (1.4-4.0); Lymphocytes % 8.8 % (21.3-54.2); Mean Corpuscular HGB Conc 32.9 GM/DL (32-36); Mean Corpuscular Volume 83.4 FL (87-102); Monocytes % 5.6 % (1.7-12.7); Neutrophils % 84.6 % (38.7-73.9); Platelet Count 395 T/CUMM (130-400); Red Blood Count 3.79 MC/CUMM (3.8-5.5); Red Cell Distribution Width 13.5 % (9.3-17.3); White Blood Count 20.5 T/CUMM (4-12)
[2021-01-01] MEDS ORDERED: ACETAMINOPHEN 500 MG TABLET PO STA (18:26)
[2021-01-01] MEDS ORDERED: VANCOMYCIN INJ 1,500 MG in SODIUM CHLORIDE 0.9% 500 ML IV STA (18:32)
[2021-01-01 18:59] LABS: Albumin 1.6 G/DL (3.4-5.0); Band Neutrophils 2 % (0-10); Bilirubin,Total 0.8 MG/DL (0.20-1.00); Calcium 7.9 MG/DL (8.5-10.1); Hypochromasia 1+; Lymphocytes 9 % (20-55); Osmolality,Calculated 282.1 MOS/KG (273-304); Platelet Estimate Adequate; Potassium 4.1 MMOL/L (3.5-5.1); Segmented Neutrophils 84 % (50-85); Total Cells Counted 100; Total Protein 7.3 G/DL (6.4-8.2)
[2021-01-01 19:08] LABS: Bilirubin,Urine Negative (Negative); Blood, Urine Small mg/dL (Negative); Glucose,Urine (UA) 150 mg/dL (Negative); Ketones,Urine Negative (Negative); Nitrite,Urine Negative (Negative); Protein,Urine 100 MG/DL; RBC,Urine 5 /HPF (0-4); Squamous Epithelial Cell,Urine Occasional /HPF (0-10); Urine Appearance CLOUDY (Clear); Urine Color Amber (Yellow); Urine Specific Gravity 1.021 (1.001-1.035)
[2021-01-01] MEDS ORDERED: ACETAMINOPHEN 325 MG TABLET PO PRN (19:31)
[2021-01-01] MEDS ORDERED: LEVOFLOXACIN INJ 750 MG/150 ML PREMIX IV STA (19:31)
[2021-01-01] MEDS ORDERED: GLUCAGON 1 MG VIAL IM PRN (19:31)
[2021-01-01] MEDS ORDERED: ONDANSETRON 4 MG/2 ML VIAL IV PRN (19:31)
[2021-01-01] MEDS ORDERED: DEXTROSE 50% 25 GM/50 ML VIAL IV PRN (19:31)
[2021-01-01] MEDS ORDERED: INSULIN REGULAR 100 UNIT/ML IV STA (19:35)
[2021-01-01] MEDS ORDERED: VANCOMYCIN INJ 1,750 MG in SODIUM CHLORIDE 0.9% 250 ML IV SCH (20:00)
[2021-01-01] MEDS ORDERED: INSULIN REGULAR 100 UNIT/ML SUBCUT ONE (21:51)
[2021-01-02] MEDS: DOCUSATE SODIUM 100 MG CAPSULE PO SCH ×3 (00:03→22:03)
[2021-01-02] MEDS: SODIUM CHLORIDE 0.45% 1,000 ML IV SCH ×2 (06:01)
[2021-01-02] MEDS ORDERED: fentaNYL 100 MCG/2 ML VIAL ONE (08:54)
[2021-01-02] MEDS ORDERED: PANTOPRAZOLE 40 MG VIAL IV SCH (09:00)
[2021-01-02] MEDS ORDERED: PANTOPRAZOLE 40 MG TABLET PO SCH (09:00)
[2021-01-02] MEDS ORDERED: MIDAZOLAM 2 MG/2 ML VIAL ONE (09:59)
[2021-01-02 10:07] LABS: Albumin 1.4 G/DL (3.4-5.0); Bilirubin,Total 1.1 MG/DL (0.20-1.00); Osmolality,Calculated 280.4 MOS/KG (273-304); Total Protein 6.9 G/DL (6.4-8.2)
[2021-01-02] MEDS ORDERED: MAGNESIUM SULF RIDER 4 GM/100 ML PREMIX IV PRN (10:27)
[2021-01-02] MEDS ORDERED: POTASSIUM CHLORIDE RIDER 10 MEQ/100 ML PREMIX IV PRN (10:27)
[2021-01-02] MEDS ORDERED: MAGNESIUM SULF RIDER 2 GM/50 ML PREMIX IV PRN (10:27)
[2021-01-02] MEDS ORDERED: POTASSIUM BICARB EFFERVESCENT 20 MEQ TAB.EFF PER TUBE PRN (10:27)
[2021-01-02] MEDS ORDERED: POTASSIUM CHLORIDE 20 MEQ TABLET PO PRN (10:28)
[2021-01-02] MEDS ORDERED: SUCCINYLCHOLINE 200 MG/10 ML VIAL ONE (10:32)
[2021-01-02] MEDS ORDERED: propofoL 200 MG/20 ML VIAL IV ONE (10:32)
[2021-01-02] MEDS ORDERED: SUGAMMADEX 200 MG/2 ML VIAL IV ONE (10:32)
[2021-01-02] MEDS ORDERED: ROCURONIUM 50 MG/5 ML VIAL IV ONE (10:32)
[2021-01-02] MEDS ORDERED: ETOMIDATE 40 MG/20 ML VIAL IV ONE (10:32)
[2021-01-02] MEDS ORDERED: ONDANSETRON 4 MG/2 ML VIAL ONE (10:32)
[2021-01-02] MEDS ORDERED: LIDOCAINE 2% 5 ML VIAL ONE (10:32)
[2021-01-02] MEDS ORDERED: SEVOFLURANE 1 UNIT/15 MINUTE INH ONE (10:42)
[2021-01-02] MEDS: CEFEPIME 1,000 MG in SODIUM CHLORIDE 0.9% 100 ML IV SCH ×2 (10:55→21:56)
[2021-01-02] MEDS ORDERED: ONDANSETRON 4 MG/2 ML VIAL IV PRN (11:02)
[2021-01-02] MEDS: HYDROmorphone 2 MG/1 ML VIAL IV PRN ×4 (11:10→19:58)
[2021-01-02] MEDS: INSULIN REGULAR 100 UNIT/ML SUBCUT SCH ×3 (12:50→21:57)
[2021-01-02 13:47] LABS: Basophils % 0.1 % (0.0-0.8); Eosinophils # 0.2 10*3/uL (0.0-0.87); Eosinophils % 0.7 % (0.00-10.9); Hematocrit 21.9 VOL% (35.7-47.0); Hemoglobin 6.8 GM/DL (12.0-16.0); Immature Granulocytes % 1.1 %; Immature Granulocytes Absolute 0.26 #; Lymphocytes % 8.2 % (21.3-54.2); Mean Corpuscular HGB Conc 31.1 GM/DL (32-36); Mean Corpuscular Volume 86.9 FL (87-102); Mean Platelet Volume 9.8 FL (9.6-12.0); Monocytes % 4.3 % (1.7-12.7); Neutrophils % 85.6 % (38.7-73.9); Platelet Count 412 T/CUMM (130-400); Red Blood Count 2.52 MC/CUMM (3.8-5.5); Red Cell Distribution Width 13.7 % (9.3-17.3); White Blood Count 24.5 T/CUMM (4-12)
[2021-01-02] MEDS: PREGABALIN 100 MG CAPSULE PO SCH ×2 (15:14→21:57)
[2021-01-02] MEDS ORDERED: SODIUM CHLORIDE 0.9% 1,000 ML IV PRN (16:05)
[2021-01-02] MEDS ORDERED: FUROSEMIDE 20 MG/2 ML VIAL IV PRN (16:05)
[2021-01-02 17:55] LABS: Band Neutrophils 5 % (0-10); Eosinophils 1 % (0-10); Lymphocytes 7 % (20-55); Segmented Neutrophils 84 % (50-85); Total Cells Counted 100
[2021-01-02 17:56] LABS: Burr Cells Few
[2021-01-02 17:57] LABS: Microcytosis Slight
[2021-01-02 17:58] LABS: Platelet Estimate Increased
[2021-01-02] MEDS: INSULIN GLARGINE 100 UNIT/ML SUBCUT SCH (19:11)
[2021-01-02] MEDS ORDERED: VANCOMYCIN INJ 1,750 MG in SODIUM CHLORIDE 0.9% 500 ML IV SCH (20:00)
[2021-01-02] MEDS: BACLOFEN 10 MG TABLET PO PRN (21:57)
[2021-01-02] MEDS: MENTHOL/ZINC OXIDE OINT 71 GM JAR TOP SCH (21:57)
[2021-01-02] MEDS: SERTRALINE 25 MG TABLET PO SCH (21:57)
[2021-01-02] MEDS: PANTOPRAZOLE 40 MG TABLET PO SCH (22:02)
[2021-01-02] MEDS: VANCOMYCIN INJ 1,750 MG in SODIUM CHLORIDE 0.9% 500 ML IV SCH (23:00)
[2021-01-03] MEDS ORDERED: FUROSEMIDE 20 MG/2 ML VIAL IV PRN (03:01)
[2021-01-03] MEDS: CEFEPIME 1,000 MG in SODIUM CHLORIDE 0.9% 100 ML IV SCH ×3 (03:01→16:35)
[2021-01-03] MEDS: HYDROmorphone 2 MG/1 ML VIAL IV PRN ×5 (03:18→22:50)
[2021-01-03 06:11] LABS: Basophils % 0.2 % (0.0-0.8); Eosinophils # 0.4 10*3/uL (0.0-0.87); Eosinophils % 1.8 % (0.00-10.9); Hematocrit 24.7 VOL% (35.7-47.0); Hemoglobin 7.8 GM/DL (12.0-16.0); Immature Granulocytes % 0.8 %; Immature Granulocytes Absolute 0.16 #; Lymphocytes # 2.6 10*3/uL (1.4-4.0); Lymphocytes % 13.2 % (21.3-54.2); Mean Corpuscular HGB Conc 31.6 GM/DL (32-36); Mean Corpuscular Volume 88.5 FL (87-102); Mean Platelet Volume 10.1 FL (9.6-12.0); Monocytes % 4.9 % (1.7-12.7); Neutrophils % 79.1 % (38.7-73.9); Platelet Count 436 T/CUMM (130-400); Red Blood Count 2.79 MC/CUMM (3.8-5.5); Red Cell Distribution Width 14.1 % (9.3-17.3); White Blood Count 19.8 T/CUMM (4-12)
[2021-01-03 06:46] LABS: Albumin 1.4 G/DL (3.4-5.0); Bilirubin,Total 0.9 MG/DL (0.20-1.00); Calcium 7.8 MG/DL (8.5-10.1); Osmolality,Calculated 286.7 MOS/KG (273-304); Potassium 3.9 MMOL/L (3.5-5.1); Total Protein 6.7 G/DL (6.4-8.2)
[2021-01-03] MEDS: INSULIN REGULAR 100 UNIT/ML SUBCUT SCH ×4 (08:20→22:53)
[2021-01-03] MEDS: SODIUM CHLORIDE 0.45% 1,000 ML IV SCH ×2 (09:04→10:56)
[2021-01-03] MEDS: PREGABALIN 100 MG CAPSULE PO SCH ×3 (09:10→22:54)
[2021-01-03] MEDS: DOCUSATE SODIUM 100 MG CAPSULE PO SCH ×2 (09:10→22:54)
[2021-01-03] MEDS: PANTOPRAZOLE 40 MG TABLET PO SCH ×2 (09:11→22:54)
[2021-01-03] MEDS: INSULIN GLARGINE 100 UNIT/ML SUBCUT SCH (09:11)
[2021-01-03] MEDS: MENTHOL/ZINC OXIDE OINT 71 GM JAR TOP SCH ×2 (09:11→22:53)
[2021-01-03] MEDS: SODIUM HYPOCHLORITE 0.25% IRRIG 473 ML BOTTLE TOP SCH (11:52)
[2021-01-03] MEDS: VANCOMYCIN INJ 1,750 MG in SODIUM CHLORIDE 0.9% 500 ML IV SCH (18:09)
[2021-01-03] MEDS: SERTRALINE 25 MG TABLET PO SCH (22:54)
[2021-01-03] MEDS: BACLOFEN 10 MG TABLET PO PRN (22:54)
[2021-01-04] MEDS: CEFEPIME 1,000 MG in SODIUM CHLORIDE 0.9% 100 ML IV SCH ×3 (02:37→16:41)
[2021-01-04 06:49] LABS: Basophils % 0.3 % (0.0-0.8); Eosinophils # 0.3 10*3/uL (0.0-0.87); Eosinophils % 2.5 % (0.00-10.9); Hematocrit 26.2 VOL% (35.7-47.0); Hemoglobin 8.3 GM/DL (12.0-16.0); Immature Granulocytes % 0.8 %; Lymphocytes % 16.3 % (21.3-54.2); Mean Corpuscular HGB Conc 31.7 GM/DL (32-36); Mean Corpuscular Volume 89.4 FL (87-102); Mean Platelet Volume 10.4 FL (9.6-12.0); Monocytes % 5.8 % (1.7-12.7); Neutrophils % 74.3 % (38.7-73.9); Platelet Count 367 T/CUMM (130-400); Red Blood Count 2.93 MC/CUMM (3.8-5.5); Red Cell Distribution Width 14.2 % (9.3-17.3); White Blood Count 12.5 T/CUMM (4-12)
[2021-01-04 07:24] LABS: Albumin 1.3 G/DL (3.4-5.0); Bilirubin,Total 1.2 MG/DL (0.20-1.00); Calcium 7.9 MG/DL (8.5-10.1); Osmolality,Calculated 279.8 MOS/KG (273-304); Potassium 3.9 MMOL/L (3.5-5.1); Total Protein 6.6 G/DL (6.4-8.2)
[2021-01-04] MEDS: INSULIN REGULAR 100 UNIT/ML SUBCUT SCH ×4 (08:18→21:45)
[2021-01-04] MEDS: PREGABALIN 100 MG CAPSULE PO SCH ×3 (08:51→21:46)
[2021-01-04] MEDS: PANTOPRAZOLE 40 MG TABLET PO SCH ×2 (08:52→21:45)
[2021-01-04] MEDS: MENTHOL/ZINC OXIDE OINT 71 GM JAR TOP SCH ×2 (08:52→21:45)
[2021-01-04] MEDS: SODIUM HYPOCHLORITE 0.25% IRRIG 473 ML BOTTLE TOP SCH (08:52)
[2021-01-04] MEDS: DOCUSATE SODIUM 100 MG CAPSULE PO SCH ×2 (08:52→21:45)
[2021-01-04] MEDS: INSULIN GLARGINE 100 UNIT/ML SUBCUT SCH (08:53)
[2021-01-04] MEDS: HYDROmorphone 2 MG/1 ML VIAL IV PRN ×2 (12:20→21:41)
[2021-01-04] MEDS: SODIUM CHLORIDE 0.45% 1,000 ML IV SCH (13:46)
[2021-01-04] MEDS: VANCOMYCIN INJ 1,750 MG in SODIUM CHLORIDE 0.9% 500 ML IV SCH (18:01)
[2021-01-04] MEDS ORDERED: VANCOMYCIN INJ 1,500 MG in SODIUM CHLORIDE 0.9% 500 ML IV SCH (20:00)
[2021-01-04] MEDS: SERTRALINE 25 MG TABLET PO SCH (21:42)
[2021-01-04] MEDS: BACLOFEN 10 MG TABLET PO PRN (21:45)
[2021-01-05] MEDS: CEFEPIME 1,000 MG in SODIUM CHLORIDE 0.9% 100 ML IV SCH (01:16)
[2021-01-05] MEDS: HYDROmorphone 2 MG/1 ML VIAL IV PRN ×5 (03:18→23:01)
[2021-01-05] MEDS: SODIUM CHLORIDE 0.45% 1,000 ML IV SCH ×4 (03:35→18:54)
[2021-01-05 05:55] LABS: Basophils % 0.4 % (0.0-0.8); Eosinophils # 0.2 10*3/uL (0.0-0.87); Eosinophils % 2.1 % (0.00-10.9); Hematocrit 26.2 VOL% (35.7-47.0); Hemoglobin 8.3 GM/DL (12.0-16.0); Immature Granulocytes % 0.5 %; Immature Granulocytes Absolute 0.05 #; Lymphocytes # 2.1 10*3/uL (1.4-4.0); Lymphocytes % 20.2 % (21.3-54.2); Mean Corpuscular HGB Conc 31.7 GM/DL (32-36); Mean Corpuscular Volume 89.1 FL (87-102); Mean Platelet Volume 9.9 FL (9.6-12.0); Monocytes % 6.1 % (1.7-12.7); Neutrophils % 70.7 % (38.7-73.9); Platelet Count 498 T/CUMM (130-400); Red Blood Count 2.94 MC/CUMM (3.8-5.5); Red Cell Distribution Width 14.2 % (9.3-17.3); White Blood Count 10.6 T/CUMM (4-12)
[2021-01-05 06:31] LABS: Albumin 1.3 G/DL (3.4-5.0); Bilirubin,Total 1.5 MG/DL (0.20-1.00); Osmolality,Calculated 288.3 MOS/KG (273-304); Potassium 4.1 MMOL/L (3.5-5.1); Total Protein 6.4 G/DL (6.4-8.2)
[2021-01-05] MEDS: DOCUSATE SODIUM 100 MG CAPSULE PO SCH ×2 (08:22→20:31)
[2021-01-05] MEDS: POLYETHYLENE GLYCOL POWDER 17 GM PACK PO PRN (08:22)
[2021-01-05] MEDS: INSULIN GLARGINE 100 UNIT/ML SUBCUT SCH (08:22)
[2021-01-05] MEDS: PREGABALIN 100 MG CAPSULE PO SCH ×3 (08:22→20:31)
[2021-01-05] MEDS: PANTOPRAZOLE 40 MG TABLET PO SCH ×2 (08:22→20:32)
[2021-01-05] MEDS: INSULIN REGULAR 100 UNIT/ML SUBCUT SCH ×4 (10:20→22:11)
[2021-01-05] MEDS: SODIUM HYPOCHLORITE 0.25% IRRIG 473 ML BOTTLE TOP SCH (11:13)
[2021-01-05] MEDS: cefTRIAXone 2,000 MG in SODIUM CHLORIDE 0.9% 100 ML IV SCH (11:19)
[2021-01-05] MEDS: MENTHOL/ZINC OXIDE OINT 71 GM JAR TOP SCH ×2 (18:13→20:34)
[2021-01-05] MEDS: SERTRALINE 25 MG TABLET PO SCH (20:32)
[2021-01-06] MEDS: SODIUM CHLORIDE 0.45% 1,000 ML IV SCH ×3 (03:16→19:39)
[2021-01-06] MEDS: HYDROmorphone 2 MG/1 ML VIAL IV PRN ×6 (05:20→23:54)
[2021-01-06 05:33] LABS: Basophils # 0.1 10*3/uL (0.0-0.2); Basophils % 0.5 % (0.0-0.8); Eosinophils # 0.3 10*3/uL (0.0-0.87); Eosinophils % 2.9 % (0.00-10.9); Hematocrit 28.1 VOL% (35.7-47.0); Hemoglobin 8.9 GM/DL (12.0-16.0); Lymphocytes # 2.9 10*3/uL (1.4-4.0); Lymphocytes % 28.7 % (21.3-54.2); Mean Corpuscular HGB Conc 31.7 GM/DL (32-36); Mean Corpuscular Volume 88.9 FL (87-102); Mean Platelet Volume 9.5 FL (9.6-12.0); Monocytes % 6.4 % (1.7-12.7); Neutrophils % 60.5 % (38.7-73.9); Platelet Count 547 T/CUMM (130-400); Red Blood Count 3.16 MC/CUMM (3.8-5.5); Red Cell Distribution Width 14.1 % (9.3-17.3)
[2021-01-06 05:56] LABS: Albumin 1.5 G/DL (3.4-5.0); Bilirubin,Total 0.6 MG/DL (0.20-1.00); Calcium 8.3 MG/DL (8.5-10.1); Osmolality,Calculated 280.5 MOS/KG (273-304); Potassium 3.9 MMOL/L (3.5-5.1); Total Protein 6.8 G/DL (6.4-8.2)
[2021-01-06] MEDS: DOCUSATE SODIUM 100 MG CAPSULE PO SCH ×3 (10:03→22:12)
[2021-01-06] MEDS: PANTOPRAZOLE 40 MG TABLET PO SCH ×2 (10:04→22:05)
[2021-01-06] MEDS: PREGABALIN 100 MG CAPSULE PO SCH ×3 (10:04→22:06)
[2021-01-06] MEDS: cefTRIAXone 2,000 MG in SODIUM CHLORIDE 0.9% 100 ML IV SCH (10:04)
[2021-01-06] MEDS: INSULIN REGULAR 100 UNIT/ML SUBCUT SCH ×4 (10:04→22:07)
[2021-01-06] MEDS: INSULIN GLARGINE 100 UNIT/ML SUBCUT SCH (10:05)
[2021-01-06] MEDS: MENTHOL/ZINC OXIDE OINT 71 GM JAR TOP SCH ×2 (10:10→22:08)
[2021-01-06] MEDS ORDERED: LACTATED RINGERS 1,000 ML IV SCH (11:30)
[2021-01-06] MEDS ORDERED: fentaNYL 100 MCG/2 ML VIAL ONE (11:54)
[2021-01-06] MEDS ORDERED: ETOMIDATE 40 MG/20 ML VIAL IV ONE (11:54)
[2021-01-06] MEDS ORDERED: ONDANSETRON 4 MG/2 ML VIAL ONE (11:54)
[2021-01-06] MEDS ORDERED: SEVOFLURANE 1 UNIT/15 MINUTE INH ONE ×4 (11:54→13:29)
[2021-01-06] MEDS ORDERED: propofoL 200 MG/20 ML VIAL IV ONE (11:54)
[2021-01-06] MEDS ORDERED: LIDOCAINE 2% 5 ML VIAL ONE (11:54)
[2021-01-06] MEDS ORDERED: SODIUM CHLORIDE 0.9% 1,000 ML IV PRN (12:45)
[2021-01-06] MEDS ORDERED: PHENYLEPHRINE 1 MG/10 ML SYRINGE IV ONE (13:13)
[2021-01-06] MEDS ORDERED: PHENYLEPHRINE 10 MG/1 ML VIAL IV ONE (13:15)
[2021-01-06] MEDS ORDERED: SODIUM CHLORIDE 0.9% 100 ML IV ONE (13:17)
[2021-01-06] MEDS ORDERED: LACTATED RINGERS 1,000 ML IV ONE (13:17)
[2021-01-06] MEDS ORDERED: SODIUM CHLORIDE 0.9% 1,000 ML IV ONE (13:28)
[2021-01-06] MEDS ORDERED: KETAMINE 500 MG/10 ML VIAL ONE (13:30)
[2021-01-06] MEDS ORDERED: ONDANSETRON 4 MG/2 ML VIAL IV PRN (14:20)
[2021-01-06] MEDS: SODIUM HYPOCHLORITE 0.25% IRRIG 473 ML BOTTLE TOP SCH (15:18)
[2021-01-06] MEDS: SERTRALINE 25 MG TABLET PO SCH ×2 (22:06→22:13)
[2021-01-07] MEDS: HYDROmorphone 2 MG/1 ML VIAL IV PRN ×2 (04:33→08:35)
[2021-01-07 06:03] LABS: Albumin 1.5 G/DL (3.4-5.0); Bilirubin,Total 1.6 MG/DL (0.20-1.00); Calcium 8.2 MG/DL (8.5-10.1); Osmolality,Calculated 277.5 MOS/KG (273-304); Potassium 4.3 MMOL/L (3.5-5.1); Total Protein 6.6 G/DL (6.4-8.2)
[2021-01-07 06:25] LABS: Basophils # 0.1 10*3/uL (0.0-0.2); Basophils % 0.4 % (0.0-0.8); Eosinophils # 0.3 10*3/uL (0.0-0.87); Eosinophils % 1.7 % (0.00-10.9); Hematocrit 32.7 VOL% (35.7-47.0); Hemoglobin 10.2 GM/DL (12.0-16.0); Immature Granulocytes Absolute 0.15 #; Lymphocytes # 3.3 10*3/uL (1.4-4.0); Lymphocytes % 22.4 % (21.3-54.2); Mean Corpuscular HGB Conc 31.2 GM/DL (32-36); Mean Corpuscular Volume 89.6 FL (87-102); Mean Platelet Volume 10.6 FL (9.6-12.0); Monocytes % 8.2 % (1.7-12.7); Neutrophils % 66.3 % (38.7-73.9); Red Blood Count 3.65 MC/CUMM (3.8-5.5); Red Cell Distribution Width 14.7 % (9.3-17.3)
[2021-01-07 06:28] LABS: Platelet Count 374 T/CUMM (130-400); White Blood Count 14.8 T/CUMM (4-12)
[2021-01-07 06:35] LABS: Hypochromasia 1+
[2021-01-07 06:36] LABS: Microcytosis Slight
[2021-01-07] MEDS: INSULIN REGULAR 100 UNIT/ML SUBCUT SCH ×4 (08:19→21:26)
[2021-01-07] MEDS: DOCUSATE SODIUM 100 MG CAPSULE PO SCH ×2 (08:33→21:23)
[2021-01-07] MEDS: PREGABALIN 100 MG CAPSULE PO SCH ×3 (08:33→21:23)
[2021-01-07] MEDS: PANTOPRAZOLE 40 MG TABLET PO SCH ×2 (08:33→21:24)
[2021-01-07] MEDS: cefTRIAXone 2,000 MG in SODIUM CHLORIDE 0.9% 100 ML IV SCH (08:36)
[2021-01-07] MEDS: INSULIN GLARGINE 100 UNIT/ML SUBCUT SCH (08:40)
[2021-01-07] MEDS ORDERED: MAGNESIUM SULF RIDER 2 GM/50 ML PREMIX IV PRN (08:44)
[2021-01-07] MEDS ORDERED: MAGNESIUM SULF RIDER 4 GM/100 ML PREMIX IV PRN (08:44)
[2021-01-07] MEDS: MENTHOL/ZINC OXIDE OINT 71 GM JAR TOP SCH ×2 (09:00→21:27)
[2021-01-07] MEDS ORDERED: NALOXONE 0.4 MG/ML VIAL IV PRN (09:24)
[2021-01-07] MEDS ORDERED: ONDANSETRON 4 MG/2 ML VIAL IV PRN (09:24)
[2021-01-07] MEDS ORDERED: ALBUTEROL/IPRATROPIUM 3 ML NEB RESP TX PRN (09:30)
[2021-01-07] MEDS ORDERED: HYDROmorphone PCA 30 MG/30 ML SYRINGE IV SCH (10:30)
[2021-01-07] MEDS: SODIUM CHLORIDE 0.45% 1,000 ML IV SCH ×3 (11:01→18:14)
[2021-01-07] MEDS: SODIUM HYPOCHLORITE 0.25% IRRIG 473 ML BOTTLE TOP SCH (11:17)
[2021-01-07] MEDS: ALBUTEROL/IPRATROPIUM 3 ML NEB RESP TX SCH ×2 (14:31→18:58)
[2021-01-07] MEDS: SERTRALINE 25 MG TABLET PO SCH (21:23)
[2021-01-08] MEDS: ALBUTEROL/IPRATROPIUM 3 ML NEB RESP TX SCH ×4 (02:33→20:10)
[2021-01-08] MEDS: SODIUM CHLORIDE 0.45% 1,000 ML IV SCH (03:47)
[2021-01-08 05:35] LABS: Basophils # 0.1 10*3/uL (0.0-0.2); Basophils % 0.3 % (0.0-0.8); Eosinophils # 0.2 10*3/uL (0.0-0.87); Eosinophils % 1.2 % (0.00-10.9); Hematocrit 26.8 VOL% (35.7-47.0); Hemoglobin 8.5 GM/DL (12.0-16.0); Immature Granulocytes % 1.1 %; Immature Granulocytes Absolute 0.16 #; Lymphocytes # 2.2 10*3/uL (1.4-4.0); Lymphocytes % 15.2 % (21.3-54.2); Mean Corpuscular HGB Conc 31.7 GM/DL (32-36); Mean Corpuscular Volume 89.6 FL (87-102); Mean Platelet Volume 9.3 FL (9.6-12.0); Monocytes % 6.9 % (1.7-12.7); Neutrophils % 75.3 % (38.7-73.9); Platelet Count 401 T/CUMM (130-400); Red Blood Count 2.99 MC/CUMM (3.8-5.5); Red Cell Distribution Width 14.7 % (9.3-17.3); White Blood Count 14.6 T/CUMM (4-12)
[2021-01-08 06:01] LABS: Albumin 1.5 G/DL (3.4-5.0); Bilirubin,Total 0.4 MG/DL (0.20-1.00); Calcium 7.9 MG/DL (8.5-10.1); Osmolality,Calculated 282.3 MOS/KG (273-304); Potassium 3.8 MMOL/L (3.5-5.1); Total Protein 6.2 G/DL (6.4-8.2)
[2021-01-08] MEDS: INSULIN GLARGINE 100 UNIT/ML SUBCUT SCH (08:51)
[2021-01-08] MEDS: PREGABALIN 100 MG CAPSULE PO SCH ×3 (08:52→20:50)
[2021-01-08] MEDS: PANTOPRAZOLE 40 MG TABLET PO SCH ×2 (08:52→20:50)
[2021-01-08] MEDS: DOCUSATE SODIUM 100 MG CAPSULE PO SCH ×2 (08:52→20:50)
[2021-01-08] MEDS: INSULIN REGULAR 100 UNIT/ML SUBCUT SCH ×4 (08:53→21:04)
[2021-01-08] MEDS: MENTHOL/ZINC OXIDE OINT 71 GM JAR TOP SCH ×2 (08:53→20:55)
[2021-01-08] MEDS: cefTRIAXone 2,000 MG in SODIUM CHLORIDE 0.9% 100 ML IV SCH (08:53)
[2021-01-08 12:07] LABS: Hematocrit 26.2 VOL% (35.7-47.0); Hemoglobin 8.1 GM/DL (12.0-16.0)
[2021-01-08] MEDS: SERTRALINE 25 MG TABLET PO SCH (20:50)
[2021-01-09] MEDS: ALBUTEROL/IPRATROPIUM 3 ML NEB RESP TX SCH ×4 (00:40→20:01)
[2021-01-09 06:49] LABS: Basophils # 0.1 10*3/uL (0.0-0.2); Basophils % 0.4 % (0.0-0.8); Eosinophils # 0.2 10*3/uL (0.0-0.87); Eosinophils % 1.7 % (0.00-10.9); Hematocrit 24.9 VOL% (35.7-47.0); Hemoglobin 7.8 GM/DL (12.0-16.0); Immature Granulocytes % 0.8 %; Immature Granulocytes Absolute 0.11 #; Lymphocytes # 1.7 10*3/uL (1.4-4.0); Mean Corpuscular HGB Conc 31.3 GM/DL (32-36); Mean Corpuscular Volume 89.9 FL (87-102); Mean Platelet Volume 9.5 FL (9.6-12.0); Monocytes % 6.3 % (1.7-12.7); Neutrophils % 77.8 % (38.7-73.9); Platelet Count 371 T/CUMM (130-400); Red Blood Count 2.77 MC/CUMM (3.8-5.5); Red Cell Distribution Width 14.8 % (9.3-17.3); White Blood Count 13.3 T/CUMM (4-12)
[2021-01-09 07:17] LABS: Alanine Aminotransferase < 6 U/L (13-56); Albumin 1.5 G/DL (3.4-5.0); Alkaline Phosphatase 109 U/L (45-117); Aspartate Amino Transferase 11 U/L (0-37); Blood Urea Nitrogen 16 MG/DL (7-18); Calcium 8.3 MG/DL (8.5-10.1); Carbon Dioxide 24 MMOL/L (21-32); Estimated Glom Filtration Rate 105 ML/MIN; Glucose 111 MG/DL (74-106); Osmolality,Calculated 278.5 MOS/KG (273-304); Potassium 3.9 MMOL/L (3.5-5.1); Sodium 139 MMOL/L (136-145); Total Protein 6.1 G/DL (6.4-8.2)
[2021-01-09] MEDS: INSULIN REGULAR 100 UNIT/ML SUBCUT SCH ×4 (07:30→20:56)
[2021-01-09] MEDS ORDERED: SODIUM CHLORIDE 0.9% 1,000 ML IV PRN ×2 (08:14→08:31)
[2021-01-09] MEDS: PREGABALIN 100 MG CAPSULE PO SCH ×3 (09:18→20:48)
[2021-01-09] MEDS: PANTOPRAZOLE 40 MG TABLET PO SCH ×2 (09:18→20:48)
[2021-01-09] MEDS: MENTHOL/ZINC OXIDE OINT 71 GM JAR TOP SCH ×2 (09:18→21:01)
[2021-01-09] MEDS: INSULIN GLARGINE 100 UNIT/ML SUBCUT SCH (09:19)
[2021-01-09] MEDS: DOCUSATE SODIUM 100 MG CAPSULE PO SCH ×2 (09:19→20:48)
[2021-01-09] MEDS: cefTRIAXone 2,000 MG in SODIUM CHLORIDE 0.9% 100 ML IV SCH (09:19)
[2021-01-09] MEDS: HYDROmorphone 2 MG/1 ML VIAL IV PRN ×2 (13:39→18:13)
[2021-01-09] MEDS: SERTRALINE 25 MG TABLET PO SCH (20:48)
[2021-01-10] MEDS: ALBUTEROL/IPRATROPIUM 3 ML NEB RESP TX SCH ×4 (00:17→19:03)
[2021-01-10] MEDS: HYDROmorphone 2 MG/1 ML VIAL IV PRN ×7 (00:33→21:42)
[2021-01-10] MEDS: POLYETHYLENE GLYCOL POWDER 17 GM PACK PO PRN (06:34)
[2021-01-10] MEDS: RIVAROXABAN 20 MG TABLET PO SCH (09:10)
[2021-01-10] MEDS: MENTHOL/ZINC OXIDE OINT 71 GM JAR TOP SCH ×2 (09:10→21:04)
[2021-01-10] MEDS: cefTRIAXone 2,000 MG in SODIUM CHLORIDE 0.9% 100 ML IV SCH (09:10)
[2021-01-10] MEDS: PREGABALIN 100 MG CAPSULE PO SCH ×3 (09:10→21:02)
[2021-01-10] MEDS: PANTOPRAZOLE 40 MG TABLET PO SCH ×2 (09:10→21:03)
[2021-01-10] MEDS: DOCUSATE SODIUM 100 MG CAPSULE PO SCH ×2 (09:10→21:03)
[2021-01-10] MEDS: INSULIN REGULAR 100 UNIT/ML SUBCUT SCH ×4 (09:10→21:04)
[2021-01-10] MEDS: INSULIN GLARGINE 100 UNIT/ML SUBCUT SCH (09:10)
[2021-01-10] MEDS: SERTRALINE 25 MG TABLET PO SCH (21:03)
[2021-01-11] MEDS: ALBUTEROL/IPRATROPIUM 3 ML NEB RESP TX SCH ×2 (01:04→07:15)
[2021-01-11] MEDS: HYDROmorphone 2 MG/1 ML VIAL IV PRN ×2 (03:42→09:04)
[2021-01-11] MEDS: RIVAROXABAN 20 MG TABLET PO SCH (09:04)
[2021-01-11] MEDS: INSULIN GLARGINE 100 UNIT/ML SUBCUT SCH (09:04)
[2021-01-11] MEDS: INSULIN REGULAR 100 UNIT/ML SUBCUT SCH (09:04)
[2021-01-11] MEDS: MENTHOL/ZINC OXIDE OINT 71 GM JAR TOP SCH (09:05)
[2021-01-11] MEDS: DOCUSATE SODIUM 100 MG CAPSULE PO SCH (09:05)
[2021-01-11] MEDS: PREGABALIN 100 MG CAPSULE PO SCH (09:05)
[2021-01-11] MEDS: PANTOPRAZOLE 40 MG TABLET PO SCH (09:05)
[2021-01-11] MEDS: POLYETHYLENE GLYCOL POWDER 17 GM PACK PO PRN (09:05)
[2021-01-11] MEDS: cefTRIAXone 2,000 MG in SODIUM CHLORIDE 0.9% 100 ML IV SCH (09:09)
[2021-01-11 12:00] VITALS: BP 126/52
== END 2021-01-11 13:05 | DRG 853 ==
LOC: EDBD → EDUNIT# → N.ED 17:28 → N.5E 19:31
PROVIDERS: ADMIT Family Medicine; ATTEND Family Medicine

== ENCOUNTER 2021-03-22 04:13 | Observation (INO) ==
[2021-03-22 09:53] LABS: Bacteria,Urine Occasional /HPF (Few); Bilirubin,Urine Negative (Negative); Blood, Urine Negative (Negative); Glucose,Urine (UA) >=500 mg/dL (Negative); Ketones,Urine Negative (Negative); Nitrite,Urine Negative (Negative); Protein,Urine 100 MG/DL; RBC,Urine 1 /HPF (0-4); Squamous Epithelial Cell,Urine Many /HPF (0-10); Urine Appearance CLOUDY (Clear); Urine Color Yellow (Yellow); Urine Specific Gravity 1.007 (1.001-1.035); Urine Urobilinogen < 2.0 EU/DL (<2.0)
[2021-03-22 10:56] LABS: Basophils # 0.1 10*3/uL (0.0-0.2); Basophils % 0.7 % (0.0-0.8); Eosinophils # 0.4 10*3/uL (0.0-0.87); Eosinophils % 4.8 % (0.00-10.9); Hematocrit 34.8 VOL% (35.7-47.0); Hemoglobin 11.5 GM/DL (12.0-16.0); Immature Granulocytes % 0.4 %; Immature Granulocytes Absolute 0.03 #; Lymphocytes # 2.3 10*3/uL (1.4-4.0); Mean Corpuscular Volume 87.7 FL (87-102); Mean Platelet Volume 9.7 FL (9.6-12.0); Monocytes % 6.6 % (1.7-12.7); Neutrophils % 55.5 % (38.7-73.9); Platelet Count 336 T/CUMM (130-400); Red Blood Count 3.97 MC/CUMM (3.8-5.5); Red Cell Distribution Width 13.1 % (9.3-17.3); White Blood Count 7.3 T/CUMM (4-12)
[2021-03-22 11:12] LABS: Calcium 8.8 MG/DL (8.5-10.1); Osmolality,Calculated 285.5 MOS/KG (273-304); Potassium 3.8 MMOL/L (3.5-5.1)
[2021-03-22] MEDS ORDERED: ACETAMINOPHEN 325 MG TABLET PO PRN (12:33)
[2021-03-22] MEDS ORDERED: ONDANSETRON 4 MG/2 ML VIAL IV PRN (12:33)
[2021-03-22] MEDS ORDERED: GLUCAGON 1 MG VIAL IM PRN (12:33)
[2021-03-22] MEDS ORDERED: DEXTROSE 10% 25 GM/250 ML BAG IV PRN (12:43)
[2021-03-22] MEDS ORDERED: ENOXAPARIN 40 MG/0.4 ML SYRINGE SUBCUT SCH (13:00)
[2021-03-22] MEDS: MORPHINE 2 MG/1 ML SYRINGE IV PRN ×2 (14:36→20:55)
[2021-03-22] MEDS: PREGABALIN 50 MG CAPSULE PO SCH ×2 (14:40→21:11)
[2021-03-22] MEDS: SODIUM CHLORIDE 0.45% 1,000 ML IV SCH (14:40)
[2021-03-22] MEDS: INSULIN LISPRO 100 UNIT/ML SUBCUT SCH ×2 (18:32→21:01)
[2021-03-22] MEDS: DOCUSATE SODIUM 100 MG CAPSULE PO SCH (20:55)
[2021-03-22] MEDS ORDERED: BISACODYL 10 MG SUPP RECTAL PRN (21:44)
[2021-03-22] MEDS: TEMAZEPAM 15 MG CAPSULE PO PRN (23:10)
[2021-03-23 07:02] LABS: Basophils # 0.1 10*3/uL (0.0-0.2); Basophils % 0.8 % (0.0-0.8); Eosinophils # 0.4 10*3/uL (0.0-0.87); Eosinophils % 4.8 % (0.00-10.9); Hematocrit 31.5 VOL% (35.7-47.0); Hemoglobin 10.2 GM/DL (12.0-16.0); Immature Granulocytes % 0.3 %; Immature Granulocytes Absolute 0.02 #; Lymphocytes # 3.5 10*3/uL (1.4-4.0); Lymphocytes % 43.7 % (21.3-54.2); Mean Corpuscular HGB Conc 32.4 GM/DL (32-36); Mean Corpuscular Volume 89.5 FL (87-102); Mean Platelet Volume 9.9 FL (9.6-12.0); Monocytes % 8.5 % (1.7-12.7); Neutrophils % 41.9 % (38.7-73.9); Platelet Count 290 T/CUMM (130-400); Red Blood Count 3.52 MC/CUMM (3.8-5.5); Red Cell Distribution Width 13.1 % (9.3-17.3)
[2021-03-23 07:18] LABS: Calcium 8.8 MG/DL (8.5-10.1); Osmolality,Calculated 282.4 MOS/KG (273-304); Potassium 3.3 MMOL/L (3.5-5.1)
[2021-03-23] MEDS ORDERED: MAGNESIUM SULF RIDER 4 GM/100 ML PREMIX IV PRN (08:13)
[2021-03-23] MEDS ORDERED: MAGNESIUM SULF RIDER 2 GM/50 ML PREMIX IV PRN (08:13)
[2021-03-23] MEDS ORDERED: POTASSIUM CHLORIDE RIDER 10 MEQ/100 ML PREMIX IV PRN (08:13)
[2021-03-23] MEDS: INSULIN GLARGINE 100 UNIT/ML SUBCUT SCH (08:38)
[2021-03-23] MEDS: INSULIN LISPRO 100 UNIT/ML SUBCUT SCH ×4 (08:38→20:52)
[2021-03-23] MEDS: SODIUM CHLORIDE 0.45% 1,000 ML IV SCH (08:39)
[2021-03-23] MEDS: PREGABALIN 50 MG CAPSULE PO SCH ×3 (08:53→20:51)
[2021-03-23] MEDS: RIVAROXABAN 20 MG TABLET PO SCH (08:54)
[2021-03-23] MEDS: DOCUSATE SODIUM 100 MG CAPSULE PO SCH ×2 (08:54→20:51)
[2021-03-23] MEDS: PANTOPRAZOLE 40 MG TABLET PO SCH (08:55)
[2021-03-23] MEDS: FLUTICASONE 50 MCG NASAL SPRAY 16 GM BOTTLE BOTH NARES SCH ×2 (08:56→20:52)
[2021-03-23] MEDS: LIDOCAINE 5% PATCH TRANSDERM SCH (08:56)
[2021-03-23] MEDS: POTASSIUM CHLORIDE 20 MEQ TABLET PO PRN ×3 (11:34→19:26)
[2021-03-23] MEDS: MORPHINE 2 MG/1 ML SYRINGE IV PRN ×3 (11:38→20:59)
[2021-03-23] MEDS: DICLOFENAC 1% GEL 100 GM TUBE TOP SCH ×3 (13:56→20:52)
[2021-03-23] MEDS: SERTRALINE 25 MG TABLET PO SCH (20:51)
[2021-03-23] MEDS: TEMAZEPAM 15 MG CAPSULE PO PRN (20:51)
[2021-03-24] MEDS: MORPHINE 2 MG/1 ML SYRINGE IV PRN ×3 (04:53→20:24)
[2021-03-24 05:40] LABS: Basophils # 0.1 10*3/uL (0.0-0.2); Basophils % 0.6 % (0.0-0.8); Eosinophils # 0.4 10*3/uL (0.0-0.87); Eosinophils % 4.7 % (0.00-10.9); Hematocrit 30.5 VOL% (35.7-47.0); Hemoglobin 9.9 GM/DL (12.0-16.0); Immature Granulocytes % 0.2 %; Immature Granulocytes Absolute 0.02 #; Lymphocytes # 3.9 10*3/uL (1.4-4.0); Mean Corpuscular HGB Conc 32.5 GM/DL (32-36); Mean Corpuscular Volume 90.5 FL (87-102); Mean Platelet Volume 9.7 FL (9.6-12.0); Monocytes % 7.3 % (1.7-12.7); Neutrophils % 41.2 % (38.7-73.9); Platelet Count 297 T/CUMM (130-400); Red Blood Count 3.37 MC/CUMM (3.8-5.5); Red Cell Distribution Width 13.2 % (9.3-17.3); White Blood Count 8.5 T/CUMM (4-12)
[2021-03-24] MEDS: SODIUM CHLORIDE 0.45% 1,000 ML IV SCH (06:28)
[2021-03-24 06:44] LABS: Alanine Aminotransferase 12 U/L (13-56); Albumin 2.3 G/DL (3.4-5.0); Alkaline Phosphatase 116 U/L (45-117); Aspartate Amino Transferase 15 U/L (0-37); Bilirubin,Total < 0.39 MG/DL (0.20-1.00); Blood Urea Nitrogen 29 MG/DL (7-18); Calcium 7.8 MG/DL (8.5-10.1); Carbon Dioxide 19 MMOL/L (21-32); Estimated Glom Filtration Rate 64 ML/MIN; Glucose 276 MG/DL (74-106); Osmolality,Calculated 285.1 MOS/KG (273-304); Potassium 4.2 MMOL/L (3.5-5.1); Sodium 135 MMOL/L (136-145); Total Protein 6.4 G/DL (6.4-8.2)
[2021-03-24] MEDS: INSULIN GLARGINE 100 UNIT/ML SUBCUT SCH (08:07)
[2021-03-24] MEDS: PANTOPRAZOLE 40 MG TABLET PO SCH (08:08)
[2021-03-24] MEDS: PREGABALIN 50 MG CAPSULE PO SCH ×3 (08:08→20:22)
[2021-03-24] MEDS: INSULIN LISPRO 100 UNIT/ML SUBCUT SCH ×4 (08:08→20:21)
[2021-03-24] MEDS: RIVAROXABAN 20 MG TABLET PO SCH (08:09)
[2021-03-24] MEDS: DOCUSATE SODIUM 100 MG CAPSULE PO SCH ×2 (08:09→20:22)
[2021-03-24] MEDS: LIDOCAINE 5% PATCH TRANSDERM SCH (08:10)
[2021-03-24] MEDS: FLUTICASONE 50 MCG NASAL SPRAY 16 GM BOTTLE BOTH NARES SCH ×2 (08:11→20:22)
[2021-03-24] MEDS: DICLOFENAC 1% GEL 100 GM TUBE TOP SCH ×3 (08:11→20:24)
[2021-03-24] MEDS: SERTRALINE 25 MG TABLET PO SCH (20:22)
[2021-03-25] MEDS: SODIUM CHLORIDE 0.45% 1,000 ML IV SCH (00:14)
[2021-03-25 07:11] LABS: Basophils % 0.5 % (0.0-0.8); Eosinophils # 0.4 10*3/uL (0.0-0.87); Eosinophils % 4.7 % (0.00-10.9); Hematocrit 32.1 VOL% (35.7-47.0); Hemoglobin 10.3 GM/DL (12.0-16.0); Immature Granulocytes % 0.3 %; Immature Granulocytes Absolute 0.02 #; Lymphocytes # 2.8 10*3/uL (1.4-4.0); Lymphocytes % 35.8 % (21.3-54.2); Mean Corpuscular HGB Conc 32.1 GM/DL (32-36); Mean Corpuscular Volume 90.7 FL (87-102); Monocytes % 6.6 % (1.7-12.7); Neutrophils % 52.1 % (38.7-73.9); Platelet Count 299 T/CUMM (130-400); Red Blood Count 3.54 MC/CUMM (3.8-5.5); Red Cell Distribution Width 13.2 % (9.3-17.3); White Blood Count 7.9 T/CUMM (4-12)
[2021-03-25 07:33] LABS: Alanine Aminotransferase 9 U/L (13-56); Albumin 2.4 G/DL (3.4-5.0); Alkaline Phosphatase 119 U/L (45-117); Aspartate Amino Transferase 10 U/L (0-37); Bilirubin,Total < 0.39 MG/DL (0.20-1.00); Blood Urea Nitrogen 25 MG/DL (7-18); Calcium 8.2 MG/DL (8.5-10.1); Carbon Dioxide 24 MMOL/L (21-32); Estimated Glom Filtration Rate 76 ML/MIN; Glucose 359 MG/DL (74-106); Osmolality,Calculated 290.8 MOS/KG (273-304); Potassium 3.8 MMOL/L (3.5-5.1); Sodium 137 MMOL/L (136-145); Total Protein 6.4 G/DL (6.4-8.2)
[2021-03-25] MEDS: FLUTICASONE 50 MCG NASAL SPRAY 16 GM BOTTLE BOTH NARES SCH (08:52)
[2021-03-25] MEDS: INSULIN LISPRO 100 UNIT/ML SUBCUT SCH ×2 (08:52→12:58)
[2021-03-25] MEDS: INSULIN GLARGINE 100 UNIT/ML SUBCUT SCH (08:52)
[2021-03-25] MEDS: PREGABALIN 50 MG CAPSULE PO SCH (08:53)
[2021-03-25] MEDS: RIVAROXABAN 20 MG TABLET PO SCH (08:53)
[2021-03-25] MEDS: DOCUSATE SODIUM 100 MG CAPSULE PO SCH (08:53)
[2021-03-25] MEDS: LIDOCAINE 5% PATCH TRANSDERM SCH (08:54)
[2021-03-25] MEDS: PANTOPRAZOLE 40 MG TABLET PO SCH (08:54)
[2021-03-25] MEDS: DICLOFENAC 1% GEL 100 GM TUBE TOP SCH (10:12)
[2021-03-25 13:02] VITALS: BP 153/84
== END 2021-03-25 15:40 | disposition home or self-care (01) ==
LOC: EDUNIT# → EDBD → N.ED 04:13 → N.EDINP 04:13 → N.3E 22:48
PROVIDERS: ADMIT Family Medicine; ATTEND Family Medicine

== ENCOUNTER 2021-06-08 07:55 | Inpatient (IN) ==
[2021-06-08] MEDS ORDERED: FUROSEMIDE 100 MG/10 ML VIAL IV STA (08:20)
[2021-06-08 08:24] LABS: Basophils % 0.3 % (0.0-0.8); Eosinophils # 0.2 10*3/uL (0.0-0.87); Eosinophils % 2.1 % (0.00-10.9); Hematocrit 32.9 VOL% (35.7-47.0); Hemoglobin 10.6 GM/DL (12.0-16.0); Immature Granulocytes % 0.4 %; Immature Granulocytes Absolute 0.03 #; Lymphocytes # 1.7 10*3/uL (1.4-4.0); Lymphocytes % 22.5 % (21.3-54.2); Mean Corpuscular HGB Conc 32.2 GM/DL (32-36); Mean Corpuscular Volume 90.1 FL (87-102); Mean Platelet Volume 10.5 FL (9.6-12.0); Monocytes # 0.6 10*3/uL (0.11-0.8); Monocytes % 7.2 % (1.7-12.7); Neutrophils % 67.5 % (38.7-73.9); Platelet Count 265 T/CUMM (130-400); Red Blood Count 3.65 MC/CUMM (3.8-5.5); Red Cell Distribution Width 13.3 % (9.3-17.3); White Blood Count 7.7 T/CUMM (4-12)
[2021-06-08 08:44] LABS: Albumin 2.6 G/DL (3.4-5.0); Bilirubin,Total 0.6 MG/DL (0.20-1.00); Calcium 8.1 MG/DL (8.5-10.1); Osmolality,Calculated 288.5 MOS/KG (273-304); Total Protein 6.8 G/DL (6.4-8.2)
[2021-06-08 12:55] LABS: Bacteria,Urine Occasional /HPF (Few); Bilirubin,Urine Negative (Negative); Blood, Urine Trace mg/dL (Negative); Glucose,Urine (UA) Negative (Negative); Ketones,Urine Negative (Negative); Nitrite,Urine Negative (Negative); Protein,Urine Negative (Negative); RBC,Urine 4 /HPF (0-4); Squamous Epithelial Cell,Urine Occasional /HPF (0-10); Urine Appearance Clear (Clear); Urine Color Yellow (Yellow); Urine Urobilinogen 0.2 eU/dL (<2.0)
[2021-06-08] MEDS ORDERED: HEPARIN/NACL 0.9% 2 UNITS/ML 3,000 UNIT/1,500 ML BAG IV ONE (13:07)
[2021-06-08] MEDS ORDERED: POTASSIUM CHLORIDE RIDER 10 MEQ/100 ML PREMIX IV PRN (13:12)
[2021-06-08] MEDS ORDERED: MAGNESIUM SULF RIDER 2 GM/50 ML PREMIX IV PRN (13:12)
[2021-06-08] MEDS ORDERED: HEPARIN 5,000 UNIT/1 ML VIAL IV ONE (13:15)
[2021-06-08] MEDS ORDERED: fentaNYL 100 MCG/2 ML VIAL ONE (13:23)
[2021-06-08] MEDS ORDERED: MIDAZOLAM 2 MG/2 ML VIAL ONE (13:23)
[2021-06-08] MEDS ORDERED: HEPARIN 5,000 UNIT/1 ML VIAL ONE (14:01)
[2021-06-08] MEDS ORDERED: HYDROmorphone 1 MG/1 ML SYRINGE ONE (14:40)
[2021-06-08] MEDS ORDERED: GLUCAGON 1 MG VIAL IM PRN ×2 (15:42→22:43)
[2021-06-08] MEDS ORDERED: ACETAMINOPHEN 325 MG TABLET PO PRN (15:42)
[2021-06-08] MEDS ORDERED: DEXTROSE 10% 25 GM/250 ML BAG IV PRN (15:42)
[2021-06-08] MEDS ORDERED: ONDANSETRON 4 MG/2 ML VIAL IV PRN (15:42)
[2021-06-08] MEDS ORDERED: SODIUM CHLORIDE 0.9% 1,000 ML IV SCH (15:42)
[2021-06-08] MEDS: RIVAROXABAN 20 MG TABLET PO SCH (16:51)
[2021-06-08 18:44] LABS: INR 1.2; PT Patient Result 12.9 SECS (10.5-12.0); Partial Thromboplastin Time 29.5 SECS (23.8-32.1)
[2021-06-08] MEDS: DOCUSATE SODIUM 100 MG CAPSULE PO SCH (20:24)
[2021-06-08] MEDS ORDERED: diphenhydrAMINE 50 MG/1 ML VIAL IV PRN (22:27)
[2021-06-08] MEDS ORDERED: DEXTROSE 50% 25 GM/50 ML VIAL IV PRN (22:43)
[2021-06-09] MEDS: PREGABALIN 100 MG CAPSULE PO SCH ×6 (04:04→20:24)
[2021-06-09 05:33] LABS: Basophils % 0.4 % (0.0-0.8); Eosinophils # 0.2 10*3/uL (0.0-0.87); Eosinophils % 3.8 % (0.00-10.9); Hematocrit 30.9 VOL% (35.7-47.0); Hemoglobin 10.1 GM/DL (12.0-16.0); Immature Granulocytes % 0.2 %; Immature Granulocytes Absolute 0.01 #; Lymphocytes # 2.2 10*3/uL (1.4-4.0); Lymphocytes % 39.1 % (21.3-54.2); Mean Corpuscular HGB Conc 32.7 GM/DL (32-36); Mean Corpuscular Volume 90.1 FL (87-102); Mean Platelet Volume 10.8 FL (9.6-12.0); Monocytes # 0.4 10*3/uL (0.11-0.8); Monocytes % 6.8 % (1.7-12.7); Neutrophils % 49.7 % (38.7-73.9); Platelet Count 236 T/CUMM (130-400); Red Blood Count 3.43 MC/CUMM (3.8-5.5); Red Cell Distribution Width 13.2 % (9.3-17.3); White Blood Count 5.6 T/CUMM (4-12)
[2021-06-09 05:42] LABS: Osmolality,Calculated 286.5 MOS/KG (273-304); Potassium 3.6 MMOL/L (3.5-5.1)
[2021-06-09 05:59] LABS: Hypochromia Slight
[2021-06-09 06:00] LABS: Polychromasia Slight
[2021-06-09] MEDS ORDERED: MAGNESIUM SULF RIDER 2 GM/50 ML PREMIX IV ONE (09:22)
[2021-06-09] MEDS ORDERED: POTASSIUM CHLORIDE 20 MEQ TABLET PO ONE (09:22)
[2021-06-09] MEDS: DOCUSATE SODIUM 100 MG CAPSULE PO SCH ×2 (09:36→20:23)
[2021-06-09] MEDS: PANTOPRAZOLE 40 MG TABLET PO SCH (09:37)
[2021-06-09] MEDS: FUROSEMIDE 40 MG TABLET PO SCH (09:37)
[2021-06-09] MEDS: INSULIN REGULAR 100 UNIT/ML SUBCUT SCH ×4 (09:59→20:23)
[2021-06-09] MEDS: METOPROLOL TARTRATE 25 MG TABLET PO SCH ×2 (14:02→20:23)
[2021-06-09] MEDS ORDERED: hydrOXYzine HCL 25 MG TABLET PO PRN (14:04)
[2021-06-09] MEDS: RIVAROXABAN 20 MG TABLET PO SCH (17:21)
[2021-06-09] MEDS: NEOMYCIN/POLYMYXIN/BACITRACIN OINT 0.9 GM PACK TOP SCH (17:21)
[2021-06-09] MEDS ORDERED: hydrOXYzine HCL 25 MG TABLET PO ONE (21:00)
[2021-06-09] MEDS ORDERED: guaiFENesin/CODEINE 5 ML LIQUID PO SCH (21:00)
[2021-06-10 05:05] LABS: Basophils % 0.4 % (0.0-0.8); Eosinophils # 0.3 10*3/uL (0.0-0.87); Eosinophils % 3.7 % (0.00-10.9); Hematocrit 29.9 VOL% (35.7-47.0); Hemoglobin 9.8 GM/DL (12.0-16.0); Immature Granulocytes % 0.3 %; Immature Granulocytes Absolute 0.02 #; Lymphocytes # 3.3 10*3/uL (1.4-4.0); Lymphocytes % 44.9 % (21.3-54.2); Mean Corpuscular HGB Conc 32.8 GM/DL (32-36); Mean Corpuscular Volume 88.7 FL (87-102); Mean Platelet Volume 10.3 FL (9.6-12.0); Monocytes # 0.5 10*3/uL (0.11-0.8); Monocytes % 6.8 % (1.7-12.7); Neutrophils % 43.9 % (38.7-73.9); Platelet Count 253 T/CUMM (130-400); Red Blood Count 3.37 MC/CUMM (3.8-5.5); Red Cell Distribution Width 13.2 % (9.3-17.3); White Blood Count 7.4 T/CUMM (4-12)
[2021-06-10 05:20] LABS: Calcium 8.2 MG/DL (8.5-10.1); Osmolality,Calculated 281.8 MOS/KG (273-304); Potassium 3.8 MMOL/L (3.5-5.1)
[2021-06-10 05:39] LABS: Eosinophils 3 % (0-10); Hypochromia Slight; Lymphocytes 46 % (20-55); Microcytosis Slight; Platelet Estimate Adequate; Total Cells Counted 100
[2021-06-10] MEDS: INSULIN REGULAR 100 UNIT/ML SUBCUT SCH ×2 (08:27→12:22)
[2021-06-10] MEDS: PREGABALIN 100 MG CAPSULE PO SCH ×3 (08:36→14:58)
[2021-06-10] MEDS: DOCUSATE SODIUM 100 MG CAPSULE PO SCH (08:59)
[2021-06-10] MEDS: PANTOPRAZOLE 40 MG TABLET PO SCH (08:59)
[2021-06-10] MEDS: FUROSEMIDE 40 MG TABLET PO SCH (08:59)
[2021-06-10] MEDS: METOPROLOL TARTRATE 25 MG TABLET PO SCH (09:00)
[2021-06-10] MEDS ORDERED: LIDOCAINE 5% PATCH TRANSDERM SCH (09:00)
[2021-06-10] MEDS: NEOMYCIN/POLYMYXIN/BACITRACIN OINT 0.9 GM PACK TOP SCH (09:06)
[2021-06-10 16:59] VITALS: BP 123/67
[2021-06-10] MEDS ORDERED: RIVAROXABAN 20 MG TABLET PO SCH (18:10)
== END 2021-06-10 21:40 | disposition home or self-care (01) | DRG 204 ==
LOC: N.EDINP 07:55 → N.ED 07:55 → OBSVTOIN 11:52 → N.TELEN 11:52 → N.EDINP 11:52 → INTOOBSV 11:52 → N.TELEN 13:30
PROVIDERS: ADMIT Internal Medicine; ATTEND Internal Medicine

== ENCOUNTER 2021-07-12 07:20 | Inpatient (IN) ==
[2021-07-12] MEDS ORDERED: INSULIN LISPRO 100 UNIT/ML SUBCUT STA ×2 (07:44→11:15)
[2021-07-12 08:39] LABS: Basophils % 0.2 % (0.0-0.8); Eosinophils # 0.1 10*3/uL (0.0-0.87); Eosinophils % 0.9 % (0.00-10.9); Hematocrit 32.8 VOL% (35.7-47.0); Immature Granulocytes % 0.3 %; Immature Granulocytes Absolute 0.03 #; Lymphocytes # 1.6 10*3/uL (1.4-4.0); Lymphocytes % 16.3 % (21.3-54.2); Mean Corpuscular HGB Conc 33.5 GM/DL (32-36); Mean Corpuscular Volume 87.9 FL (87-102); Mean Platelet Volume 10.5 FL (9.6-12.0); Monocytes # 0.6 10*3/uL (0.11-0.8); Monocytes % 5.6 % (1.7-12.7); Neutrophils % 76.7 % (38.7-73.9); Platelet Count 255 T/CUMM (130-400); Red Blood Count 3.73 MC/CUMM (3.8-5.5); Red Cell Distribution Width 12.7 % (9.3-17.3); White Blood Count 9.8 T/CUMM (4-12)
[2021-07-12 08:55] LABS: Albumin 2.9 G/DL (3.4-5.0); Bilirubin,Total 0.4 MG/DL (0.20-1.00); Calcium 8.8 MG/DL (8.5-10.1); Osmolality,Calculated 291.8 MOS/KG (273-304); Potassium 3.8 MMOL/L (3.5-5.1); Total Protein 6.8 G/DL (6.4-8.2)
[2021-07-12 10:21] LABS: Barbiturates Screen,Urine Negative (Negative); Benzodiazepines Screen,Urine Negative (Negative); Cannabinoid Screen,Urine Negative (Negative); Opiate Screen,Urine Positive (Negative); Phencyclidine Screen,Urine Negative (Negative)
[2021-07-12] MEDS ORDERED: GLUCAGON 1 MG VIAL IM PRN (12:15)
[2021-07-12] MEDS ORDERED: DEXTROSE 10% 25 GM/250 ML BAG IV PRN (12:15)
[2021-07-12] MEDS ORDERED: ONDANSETRON 4 MG/2 ML VIAL IV PRN (12:15)
[2021-07-12] MEDS ORDERED: BACLOFEN 10 MG TABLET PO PRN (13:46)
[2021-07-12] MEDS ORDERED: DICLOFENAC SODIUM 50 MG TABLET PO PRN (13:52)
[2021-07-12] MEDS ORDERED: LIDOCAINE 5% PATCH TRANSDERM PRN (13:54)
[2021-07-12] MEDS: PREGABALIN 100 MG CAPSULE PO SCH ×2 (14:23→20:07)
[2021-07-12] MEDS: INSULIN REGULAR 100 UNIT/ML SUBCUT SCH (20:06)
[2021-07-12] MEDS: FUROSEMIDE 40 MG TABLET PO SCH (20:07)
[2021-07-12] MEDS: PANTOPRAZOLE 40 MG TABLET PO SCH (20:07)
[2021-07-13] MEDS: INSULIN GLARGINE 100 UNIT/ML SUBCUT SCH (08:15)
[2021-07-13] MEDS: VENLAFAXINE XR 75 MG CAPSULE PO SCH (08:15)
[2021-07-13] MEDS: INSULIN REGULAR 100 UNIT/ML SUBCUT SCH ×4 (08:15→21:46)
[2021-07-13] MEDS: PANTOPRAZOLE 40 MG TABLET PO SCH ×2 (08:16→21:45)
[2021-07-13] MEDS: RIVAROXABAN 20 MG TABLET PO SCH (08:17)
[2021-07-13] MEDS: PREGABALIN 100 MG CAPSULE PO SCH ×3 (08:17→21:45)
[2021-07-13] MEDS: FUROSEMIDE 40 MG TABLET PO SCH ×2 (08:17→21:46)
[2021-07-13] MEDS ORDERED: DEXTROSE 10% 250 ML BAG IV PRN (09:00)
[2021-07-14 04:48] LABS: Basophils % 0.4 % (0.0-0.8); Eosinophils # 0.3 10*3/uL (0.0-0.87); Eosinophils % 3.4 % (0.00-10.9); Hematocrit 33.9 VOL% (35.7-47.0); Hemoglobin 11.1 GM/DL (12.0-16.0); Immature Granulocytes % 0.3 %; Immature Granulocytes Absolute 0.03 #; Lymphocytes # 3.8 10*3/uL (1.4-4.0); Lymphocytes % 42.1 % (21.3-54.2); Mean Corpuscular HGB Conc 32.7 GM/DL (32-36); Mean Corpuscular Volume 90.2 FL (87-102); Mean Platelet Volume 10.5 FL (9.6-12.0); Monocytes # 0.6 10*3/uL (0.11-0.8); Monocytes % 6.6 % (1.7-12.7); Neutrophils % 47.2 % (38.7-73.9); Platelet Count 292 T/CUMM (130-400); Red Blood Count 3.76 MC/CUMM (3.8-5.5)
[2021-07-14 05:09] LABS: Albumin 2.8 G/DL (3.4-5.0); Bilirubin,Total 0.4 MG/DL (0.20-1.00); Calcium 8.1 MG/DL (8.5-10.1); Osmolality,Calculated 283.7 MOS/KG (273-304); Potassium 3.8 MMOL/L (3.5-5.1); Total Protein 7.2 G/DL (6.4-8.2)
[2021-07-14] MEDS: INSULIN REGULAR 100 UNIT/ML SUBCUT SCH ×4 (07:37→21:50)
[2021-07-14] MEDS: INSULIN GLARGINE 100 UNIT/ML SUBCUT SCH (09:28)
[2021-07-14] MEDS: PANTOPRAZOLE 40 MG TABLET PO SCH ×2 (09:29→21:50)
[2021-07-14] MEDS: VENLAFAXINE XR 75 MG CAPSULE PO SCH (09:29)
[2021-07-14] MEDS: RIVAROXABAN 20 MG TABLET PO SCH (09:30)
[2021-07-14] MEDS: FUROSEMIDE 40 MG TABLET PO SCH ×2 (09:30→21:50)
[2021-07-14] MEDS: PREGABALIN 100 MG CAPSULE PO SCH ×3 (09:30→21:50)
[2021-07-14] MEDS: LORATADINE 10 MG TABLET PO SCH (21:50)
[2021-07-14] MEDS: FLUTICASONE 50 MCG NASAL SPRAY 16 GM BOTTLE BOTH NARES SCH (21:50)
[2021-07-15 06:34] LABS: Basophils % 0.5 % (0.0-0.8); Eosinophils # 0.2 10*3/uL (0.0-0.87); Eosinophils % 2.7 % (0.00-10.9); Hematocrit 35.6 VOL% (35.7-47.0); Hemoglobin 11.5 GM/DL (12.0-16.0); Immature Granulocytes % 0.2 %; Immature Granulocytes Absolute 0.02 #; Lymphocytes # 2.8 10*3/uL (1.4-4.0); Lymphocytes % 34.3 % (21.3-54.2); Mean Corpuscular HGB Conc 32.3 GM/DL (32-36); Mean Corpuscular Volume 92.7 FL (87-102); Mean Platelet Volume 10.5 FL (9.6-12.0); Monocytes # 0.7 10*3/uL (0.11-0.8); Monocytes % 8.1 % (1.7-12.7); Neutrophils % 54.2 % (38.7-73.9); Platelet Count 282 T/CUMM (130-400); Red Blood Count 3.84 MC/CUMM (3.8-5.5); Red Cell Distribution Width 13.1 % (9.3-17.3); White Blood Count 8.2 T/CUMM (4-12)
[2021-07-15 07:12] LABS: Calcium 8.2 MG/DL (8.5-10.1); Osmolality,Calculated 283.7 MOS/KG (273-304); Potassium 5.3 MMOL/L (3.5-5.1)
[2021-07-15] MEDS: INSULIN REGULAR 100 UNIT/ML SUBCUT SCH ×4 (07:54→23:47)
[2021-07-15] MEDS: VENLAFAXINE XR 75 MG CAPSULE PO SCH (09:02)
[2021-07-15] MEDS: RIVAROXABAN 20 MG TABLET PO SCH (09:02)
[2021-07-15] MEDS: FUROSEMIDE 40 MG TABLET PO SCH ×2 (09:02→20:38)
[2021-07-15] MEDS: LORATADINE 10 MG TABLET PO SCH (09:02)
[2021-07-15] MEDS: PANTOPRAZOLE 40 MG TABLET PO SCH ×2 (09:02→20:39)
[2021-07-15] MEDS: PREGABALIN 100 MG CAPSULE PO SCH ×3 (09:02→20:39)
[2021-07-15] MEDS: INSULIN GLARGINE 100 UNIT/ML SUBCUT SCH (09:03)
[2021-07-15] MEDS: FLUTICASONE 50 MCG NASAL SPRAY 16 GM BOTTLE BOTH NARES SCH (09:53)
[2021-07-15] MEDS: TEMAZEPAM 15 MG CAPSULE PO SCH (20:38)
[2021-07-16 05:36] LABS: Calcium 8.4 MG/DL (8.5-10.1); Osmolality,Calculated 287.8 MOS/KG (273-304); Potassium 3.9 MMOL/L (3.5-5.1)
[2021-07-16] MEDS: RIVAROXABAN 20 MG TABLET PO SCH (08:15)
[2021-07-16] MEDS: VENLAFAXINE XR 75 MG CAPSULE PO SCH (08:15)
[2021-07-16] MEDS: PANTOPRAZOLE 40 MG TABLET PO SCH ×2 (08:16→20:36)
[2021-07-16] MEDS: FUROSEMIDE 40 MG TABLET PO SCH ×2 (08:16→20:36)
[2021-07-16] MEDS: LORATADINE 10 MG TABLET PO SCH (08:16)
[2021-07-16] MEDS: PREGABALIN 100 MG CAPSULE PO SCH ×3 (08:16→20:35)
[2021-07-16] MEDS: INSULIN GLARGINE 100 UNIT/ML SUBCUT SCH (08:17)
[2021-07-16] MEDS: INSULIN REGULAR 100 UNIT/ML SUBCUT SCH ×4 (08:17→20:36)
[2021-07-16] MEDS: FLUTICASONE 50 MCG NASAL SPRAY 16 GM BOTTLE BOTH NARES SCH (08:18)
[2021-07-16] MEDS: TEMAZEPAM 15 MG CAPSULE PO SCH (20:35)
[2021-07-17] MEDS: INSULIN REGULAR 100 UNIT/ML SUBCUT SCH ×4 (08:10→23:28)
[2021-07-17] MEDS: LORATADINE 10 MG TABLET PO SCH (08:11)
[2021-07-17] MEDS: VENLAFAXINE XR 75 MG CAPSULE PO SCH (08:11)
[2021-07-17] MEDS: PANTOPRAZOLE 40 MG TABLET PO SCH ×2 (08:11→23:28)
[2021-07-17] MEDS: FUROSEMIDE 40 MG TABLET PO SCH ×2 (08:11→23:28)
[2021-07-17] MEDS: INSULIN GLARGINE 100 UNIT/ML SUBCUT SCH (08:11)
[2021-07-17] MEDS: PREGABALIN 100 MG CAPSULE PO SCH ×3 (08:11→23:31)
[2021-07-17] MEDS: RIVAROXABAN 20 MG TABLET PO SCH (08:11)
[2021-07-17] MEDS: FLUTICASONE 50 MCG NASAL SPRAY 16 GM BOTTLE BOTH NARES SCH (08:12)
[2021-07-17] MEDS ORDERED: TUBERCULIN SKIN TEST 0.1 ML SYRINGE INTRADERM ONE (15:00)
[2021-07-17] MEDS: ZINC OXIDE PASTE 113 GM TUBE TOP SCH (23:27)
[2021-07-17] MEDS: TEMAZEPAM 15 MG CAPSULE PO SCH (23:28)
[2021-07-17] MEDS: NYSTATIN CREAM 15 GM TUBE TOP SCH (23:31)
[2021-07-18 05:39] LABS: Basophils # 0.1 10*3/uL (0.0-0.2); Basophils % 0.8 % (0.0-0.8); Eosinophils # 0.3 10*3/uL (0.0-0.87); Eosinophils % 3.8 % (0.00-10.9); Immature Granulocytes % 0.2 %; Immature Granulocytes Absolute 0.02 #; Lymphocytes # 3.5 10*3/uL (1.4-4.0); Lymphocytes % 41.7 % (21.3-54.2); Mean Corpuscular HGB Conc 32.4 GM/DL (32-36); Mean Corpuscular Volume 91.9 FL (87-102); Mean Platelet Volume 10.7 FL (9.6-12.0); Monocytes # 0.8 10*3/uL (0.11-0.8); Monocytes % 9.1 % (1.7-12.7); Neutrophils % 44.4 % (38.7-73.9); Platelet Count 352 T/CUMM (130-400); Red Cell Distribution Width 12.9 % (9.3-17.3); White Blood Count 8.4 T/CUMM (4-12)
[2021-07-18] MEDS: INSULIN REGULAR 100 UNIT/ML SUBCUT SCH (07:16)
[2021-07-18 07:38] VITALS: BP 136/74
[2021-07-18] MEDS: RIVAROXABAN 20 MG TABLET PO SCH (08:10)
[2021-07-18] MEDS: PANTOPRAZOLE 40 MG TABLET PO SCH (08:10)
[2021-07-18] MEDS: VENLAFAXINE XR 75 MG CAPSULE PO SCH (08:10)
[2021-07-18] MEDS: FUROSEMIDE 40 MG TABLET PO SCH (08:10)
[2021-07-18] MEDS: LORATADINE 10 MG TABLET PO SCH (08:10)
[2021-07-18] MEDS: NYSTATIN CREAM 15 GM TUBE TOP SCH (08:11)
[2021-07-18] MEDS: ZINC OXIDE PASTE 113 GM TUBE TOP SCH (08:11)
[2021-07-18] MEDS: FLUTICASONE 50 MCG NASAL SPRAY 16 GM BOTTLE BOTH NARES SCH (08:11)
[2021-07-18] MEDS: INSULIN GLARGINE 100 UNIT/ML SUBCUT SCH (08:11)
[2021-07-18] MEDS: PREGABALIN 100 MG CAPSULE PO SCH (08:14)
== END 2021-07-18 10:21 | disposition home health service (06) | DRG 638 ==
LOC: N.ED 07:20 → INTOOBSV 12:15 → N.EDINP 12:15 → N.3E 13:51
PROVIDERS: ADMIT Internal Medicine; ATTEND Internal Medicine

== ENCOUNTER 2021-11-10 15:40 | Inpatient (IN) ==
[2021-11-10 17:07] LABS: Arterial Base Excess iSTAT 2 MMOL/L (-2.5-2.5); Arterial Bicarbonate iSTAT 26.1 MMOL/L (20-26); Arterial O2 Saturation iSTAT 95 % (95-100); Arterial PCO2 iSTAT 38 MM HG (35-48); Arterial PO2 iSTAT 70 MM HG (80-95); Arterial Total CO2 iSTAT 27 MMO/L (23-27); Arterial pH iSTAT 7.445 (7.35-7.45)
[2021-11-10 18:08] LABS: Basophils # 0.1 10*3/uL (0.0-0.2); Basophils % 0.5 % (0.0-0.8); Eosinophils # 0.1 10*3/uL (0.0-0.87); Eosinophils % 1.5 % (0.00-10.9); Hematocrit 33.8 VOL% (35.7-47.0); Hemoglobin 11.2 GM/DL (12.0-16.0); Immature Granulocytes % 0.2 %; Immature Granulocytes Absolute 0.02 #; Lymphocytes # 2.7 10*3/uL (1.4-4.0); Lymphocytes % 29.6 % (21.3-54.2); Mean Corpuscular HGB Conc 33.1 GM/DL (32-36); Mean Corpuscular Volume 87.8 FL (87-102); Mean Platelet Volume 10.6 FL (9.6-12.0); Monocytes # 0.6 10*3/uL (0.11-0.8); Monocytes % 6.4 % (1.7-12.7); Neutrophils % 61.8 % (38.7-73.9); Platelet Count 320 T/CUMM (130-400); Red Blood Count 3.85 MC/CUMM (3.8-5.5); Red Cell Distribution Width 13.2 % (9.3-17.3); White Blood Count 9.2 T/CUMM (4-12)
[2021-11-10 18:19] LABS: INR 0.9; PT Patient Result 10.4 SECS (10.1-12.1); Partial Thromboplastin Time 25.8 SECS (23.7-32.9)
[2021-11-10 19:47] LABS: Albumin 2.5 G/DL (3.4-5.0); Bilirubin,Total 0.4 MG/DL (0.20-1.00); Calcium 9.2 MG/DL (8.5-10.1); Osmolality,Calculated 285.4 MOS/KG (273-304); Potassium 3.9 MMOL/L (3.5-5.1); Total Protein 7.7 G/DL (6.4-8.2)
[2021-11-10 19:51] LABS: Bacteria,Urine Moderate /HPF (Few); Glucose,Urine (UA) 500 mg/dL (Negative); Ketones,Urine 80 mg/dL (Negative); Nitrite,Urine Negative (Negative); Protein,Urine 100 mg/dL (Negative); RBC,Urine 34 /HPF (0-4); Squamous Epithelial Cell,Urine Moderate /HPF (0-10); Urine Appearance Slightly Cloudy (Clear); Urine Color Yellow (Yellow); Urine Specific Gravity 1.015 (1.001-1.035)
[2021-11-10 19:52] LABS: Bilirubin,Urine Small mg/dL (Negative); Blood, Urine Trace mg/dL (Negative); Urine Urobilinogen 0.2 eU/dL (<2.0)
[2021-11-10] MEDS ORDERED: MORPHINE 2 MG/1 ML SYRINGE IV STA (19:56)
[2021-11-10] MEDS ORDERED: ONDANSETRON 4 MG/2 ML VIAL IV STA (19:58)
[2021-11-10] MEDS ORDERED: cefTRIAXone 1,000 MG in SODIUM CHLORIDE 0.9% 100 ML IV STA (20:11)
[2021-11-10] MEDS ORDERED: ONDANSETRON 4 MG/2 ML VIAL IV PRN (20:14)
[2021-11-10] MEDS ORDERED: GLUCAGON 1 MG VIAL IM PRN (20:14)
[2021-11-10] MEDS ORDERED: hydrALAZINE 20 MG/1 ML VIAL IV STA (20:23)
[2021-11-10] MEDS ORDERED: DEXTROSE 10% 250 ML BAG IV PRN (20:58)
[2021-11-10] MEDS ORDERED: FUROSEMIDE 100 MG/10 ML VIAL IV SCH (21:00)
[2021-11-10] MEDS ORDERED: FUROSEMIDE 40 MG/4 ML VIAL ONE (21:28)
[2021-11-10] MEDS: INSULIN REGULAR 100 UNIT/ML SUBCUT SCH (21:35)
[2021-11-10] MEDS: DOCUSATE SODIUM 100 MG CAPSULE PO SCH (21:35)
[2021-11-11] MEDS: HYDROmorphone 1 MG/1 ML SYRINGE IV PRN ×4 (04:40→21:38)
[2021-11-11] MEDS ORDERED: INSULIN REGULAR 100 UNIT/ML SUBCUT SCH (07:30)
[2021-11-11] MEDS ORDERED: cefTRIAXone 1,000 MG in SODIUM CHLORIDE 0.9% 100 ML IV SCH (09:00)
[2021-11-11] MEDS: DOCUSATE SODIUM 100 MG CAPSULE PO SCH ×2 (09:32→21:39)
[2021-11-11] MEDS: PANTOPRAZOLE 40 MG TABLET PO SCH (09:32)
[2021-11-11] MEDS: FUROSEMIDE 40 MG/4 ML VIAL IV SCH ×2 (09:33→16:49)
[2021-11-11] MEDS: INSULIN REGULAR 100 UNIT/ML SUBCUT SCH ×4 (09:34→21:42)
[2021-11-11] MEDS: metroNIDAZOLE INJ 500 MG/100 ML PREMIX IV SCH (16:54)
[2021-11-11] MEDS: SODIUM CHLORIDE 0.9% 1,000 ML IV SCH (17:43)
[2021-11-11] MEDS: cefTRIAXone 1,000 MG in SODIUM CHLORIDE 0.9% 100 ML IV SCH (21:38)
[2021-11-11] MEDS: ACETAMINOPHEN 325 MG TABLET PO PRN (21:39)
[2021-11-12] MEDS: diphenhydrAMINE CAP 25 MG CAPSULE PO PRN ×2 (00:36→17:34)
[2021-11-12] MEDS: metroNIDAZOLE INJ 500 MG/100 ML PREMIX IV SCH ×3 (00:36→17:33)
[2021-11-12] MEDS: HYDROmorphone 1 MG/1 ML SYRINGE IV PRN ×2 (04:12→09:39)
[2021-11-12 05:29] LABS: Basophils # 0.1 10*3/uL (0.0-0.2); Basophils % 0.8 % (0.0-0.8); Eosinophils # 0.4 10*3/uL (0.0-0.87); Eosinophils % 4.6 % (0.00-10.9); Hematocrit 33.4 VOL% (35.7-47.0); Hemoglobin 10.6 GM/DL (12.0-16.0); Immature Granulocytes % 0.1 %; Immature Granulocytes Absolute 0.01 #; Lymphocytes # 2.8 10*3/uL (1.4-4.0); Lymphocytes % 35.6 % (21.3-54.2); Mean Corpuscular HGB Conc 31.7 GM/DL (32-36); Mean Platelet Volume 10.5 FL (9.6-12.0); Monocytes # 0.8 10*3/uL (0.11-0.8); Neutrophils % 48.9 % (38.7-73.9); Platelet Count 289 T/CUMM (130-400); Red Blood Count 3.67 MC/CUMM (3.8-5.5); Red Cell Distribution Width 13.3 % (9.3-17.3); White Blood Count 7.8 T/CUMM (4-12)
[2021-11-12 05:46] LABS: Calcium 8.6 MG/DL (8.5-10.1); Osmolality,Calculated 284.7 MOS/KG (273-304); Potassium 3.6 MMOL/L (3.5-5.1)
[2021-11-12] MEDS: INSULIN REGULAR 100 UNIT/ML SUBCUT SCH ×4 (09:37→21:41)
[2021-11-12] MEDS: FUROSEMIDE 40 MG/4 ML VIAL IV SCH ×2 (09:37→15:13)
[2021-11-12] MEDS: DOCUSATE SODIUM 100 MG CAPSULE PO SCH ×2 (09:38→21:39)
[2021-11-12] MEDS: PANTOPRAZOLE 40 MG TABLET PO SCH (09:38)
[2021-11-12] MEDS: SODIUM CHLORIDE 0.9% 1,000 ML IV SCH (09:39)
[2021-11-12] MEDS: ACETAMINOPHEN 325 MG TABLET PO PRN (09:47)
[2021-11-12] MEDS: SKIN HEALING OINT (AQUAPHOR) 50 GM TUBE TOP SCH (12:49)
[2021-11-12] MEDS ORDERED: LIDOCAINE 5% PATCH TRANSDERM PRN (14:29)
[2021-11-12] MEDS ORDERED: FLUTICASONE 50 MCG NASAL SPRAY 16 GM BOTTLE BOTH NARES PRN (14:29)
[2021-11-12] MEDS ORDERED: LORATADINE 10 MG TABLET PO SCH (15:00)
[2021-11-12] MEDS ORDERED: ZINC OXIDE PASTE 113 GM TUBE TOP SCH (15:00)
[2021-11-12] MEDS ORDERED: NYSTATIN CREAM 15 GM TUBE TOP SCH (15:00)
[2021-11-12] MEDS ORDERED: PREGABALIN 100 MG CAPSULE PO SCH (15:00)
[2021-11-12] MEDS: DICLOFENAC SODIUM 50 MG TABLET PO PRN (15:12)
[2021-11-12] MEDS: FUROSEMIDE 40 MG TABLET PO SCH (15:15)
[2021-11-12] MEDS: NYSTATIN CREAM 15 GM TUBE TOP SCH ×2 (15:16→21:42)
[2021-11-12] MEDS: RIVAROXABAN 20 MG TABLET PO SCH (17:33)
[2021-11-12] MEDS: VENLAFAXINE 75 MG TABLET PO SCH (17:33)
[2021-11-12] MEDS: PREGABALIN 100 MG CAPSULE PO SCH (21:39)
[2021-11-12] MEDS: CETIRIZINE 10 MG TABLET PO SCH (21:39)
[2021-11-12] MEDS: INSULIN GLARGINE 100 UNIT/ML SUBCUT SCH (21:40)
[2021-11-12] MEDS: DESITIN 4OZ/NYSTATIN 15 GRAM MIXTURE PASTE TOP SCH (21:42)
[2021-11-12] MEDS: cefTRIAXone 1,000 MG in SODIUM CHLORIDE 0.9% 100 ML IV SCH (21:42)
[2021-11-12] MEDS: fentaNYL 25 MCG/HR PATCH TRANSDERM SCH (21:43)
[2021-11-13] MEDS: metroNIDAZOLE INJ 500 MG/100 ML PREMIX IV SCH ×3 (01:05→17:41)
[2021-11-13] MEDS: FUROSEMIDE 40 MG/4 ML VIAL IV SCH (10:06)
[2021-11-13] MEDS: INSULIN GLARGINE 100 UNIT/ML SUBCUT SCH ×2 (10:07→20:31)
[2021-11-13] MEDS: PANTOPRAZOLE 40 MG TABLET PO SCH (10:12)
[2021-11-13] MEDS: VENLAFAXINE 75 MG TABLET PO SCH (10:12)
[2021-11-13] MEDS: CETIRIZINE 10 MG TABLET PO SCH ×2 (10:13→20:30)
[2021-11-13] MEDS: SKIN HEALING OINT (AQUAPHOR) 50 GM TUBE TOP SCH (10:14)
[2021-11-13] MEDS: INSULIN REGULAR 100 UNIT/ML SUBCUT SCH ×4 (10:14→20:23)
[2021-11-13] MEDS: DOCUSATE SODIUM 100 MG CAPSULE PO SCH ×2 (10:14→20:30)
[2021-11-13] MEDS: PREGABALIN 100 MG CAPSULE PO SCH ×2 (10:14→20:30)
[2021-11-13] MEDS: DESITIN 4OZ/NYSTATIN 15 GRAM MIXTURE PASTE TOP SCH ×2 (10:15→20:32)
[2021-11-13] MEDS: NYSTATIN CREAM 15 GM TUBE TOP SCH ×2 (10:15→20:31)
[2021-11-13] MEDS: FUROSEMIDE 40 MG TABLET PO SCH ×2 (10:16→17:41)
[2021-11-13] MEDS: SODIUM CHLORIDE 0.9% 1,000 ML IV SCH ×2 (10:19→17:29)
[2021-11-13] MEDS: RIVAROXABAN 20 MG TABLET PO SCH (17:40)
[2021-11-13] MEDS: cefTRIAXone 1,000 MG in SODIUM CHLORIDE 0.9% 100 ML IV SCH (20:31)
[2021-11-14] MEDS: LIDOCAINE 5% PATCH TRANSDERM PRN (00:25)
[2021-11-14] MEDS: metroNIDAZOLE INJ 500 MG/100 ML PREMIX IV SCH ×3 (00:30→16:22)
[2021-11-14] MEDS: ACETAMINOPHEN 325 MG TABLET PO PRN (00:51)
[2021-11-14] MEDS: INSULIN REGULAR 100 UNIT/ML SUBCUT SCH ×4 (07:44→21:22)
[2021-11-14] MEDS: PANTOPRAZOLE 40 MG TABLET PO SCH (08:42)
[2021-11-14] MEDS: DOCUSATE SODIUM 100 MG CAPSULE PO SCH ×2 (08:42→21:22)
[2021-11-14] MEDS: CETIRIZINE 10 MG TABLET PO SCH ×2 (08:42→21:21)
[2021-11-14] MEDS: PREGABALIN 100 MG CAPSULE PO SCH ×2 (08:42→21:21)
[2021-11-14] MEDS: FUROSEMIDE 40 MG TABLET PO SCH ×2 (08:42→16:22)
[2021-11-14] MEDS: INSULIN GLARGINE 100 UNIT/ML SUBCUT SCH ×2 (08:43→21:22)
[2021-11-14] MEDS: VENLAFAXINE 100 MG TABLET PO SCH (08:45)
[2021-11-14] MEDS: SKIN HEALING OINT (AQUAPHOR) 50 GM TUBE TOP SCH (08:47)
[2021-11-14] MEDS: NYSTATIN CREAM 15 GM TUBE TOP SCH (08:48)
[2021-11-14] MEDS: DESITIN 4OZ/NYSTATIN 15 GRAM MIXTURE PASTE TOP SCH ×2 (08:49→21:24)
[2021-11-14] MEDS: RIVAROXABAN 20 MG TABLET PO SCH (16:22)
[2021-11-14] MEDS: cefTRIAXone 1,000 MG in SODIUM CHLORIDE 0.9% 100 ML IV SCH (21:22)
[2021-11-15] MEDS: metroNIDAZOLE INJ 500 MG/100 ML PREMIX IV SCH ×3 (00:13→17:48)
[2021-11-15] MEDS: diphenhydrAMINE CAP 25 MG CAPSULE PO PRN (02:26)
[2021-11-15 05:46] LABS: Basophils # 0.1 10*3/uL (0.0-0.2); Basophils % 0.8 % (0.0-0.8); Eosinophils # 0.4 10*3/uL (0.0-0.87); Eosinophils % 4.8 % (0.00-10.9); Hematocrit 34.5 VOL% (35.7-47.0); Hemoglobin 10.9 GM/DL (12.0-16.0); Immature Granulocytes % 0.3 %; Immature Granulocytes Absolute 0.02 #; Lymphocytes # 2.7 10*3/uL (1.4-4.0); Lymphocytes % 34.5 % (21.3-54.2); Mean Corpuscular HGB Conc 31.6 GM/DL (32-36); Mean Corpuscular Volume 91.5 FL (87-102); Mean Platelet Volume 10.3 FL (9.6-12.0); Monocytes # 0.9 10*3/uL (0.11-0.8); Monocytes % 11.5 % (1.7-12.7); Neutrophils % 48.1 % (38.7-73.9); Platelet Count 412 T/CUMM (130-400); Red Blood Count 3.77 MC/CUMM (3.8-5.5); Red Cell Distribution Width 13.8 % (9.3-17.3); White Blood Count 7.8 T/CUMM (4-12)
[2021-11-15 06:08] LABS: Calcium 8.1 MG/DL (8.5-10.1); Osmolality,Calculated 282.5 MOS/KG (273-304); Potassium 2.9 MMOL/L (3.5-5.1)
[2021-11-15] MEDS: INSULIN REGULAR 100 UNIT/ML SUBCUT SCH ×4 (08:23→20:24)
[2021-11-15] MEDS: FUROSEMIDE 40 MG TABLET PO SCH ×2 (09:28→17:47)
[2021-11-15] MEDS: DESITIN 4OZ/NYSTATIN 15 GRAM MIXTURE PASTE TOP SCH ×2 (09:28→20:25)
[2021-11-15] MEDS: VENLAFAXINE 100 MG TABLET PO SCH (09:28)
[2021-11-15] MEDS: INSULIN GLARGINE 100 UNIT/ML SUBCUT SCH ×2 (09:28→20:24)
[2021-11-15] MEDS: PANTOPRAZOLE 40 MG TABLET PO SCH (09:28)
[2021-11-15] MEDS: DOCUSATE SODIUM 100 MG CAPSULE PO SCH ×2 (09:28→20:24)
[2021-11-15] MEDS: fentaNYL 25 MCG/HR PATCH TRANSDERM SCH (09:28)
[2021-11-15] MEDS: CETIRIZINE 10 MG TABLET PO SCH ×2 (09:28→20:26)
[2021-11-15] MEDS: PREGABALIN 100 MG CAPSULE PO SCH ×2 (09:28→20:25)
[2021-11-15] MEDS: SKIN HEALING OINT (AQUAPHOR) 50 GM TUBE TOP SCH (09:28)
[2021-11-15] MEDS ORDERED: POTASSIUM CHLORIDE 20 MEQ TABLET PO ONE (09:37)
[2021-11-15] MEDS ORDERED: MAGNESIUM CHLORIDE 64 MG TABLET PO ONE (09:45)
[2021-11-15] MEDS: RIVAROXABAN 20 MG TABLET PO SCH (17:48)
[2021-11-15] MEDS: cefTRIAXone 1,000 MG in SODIUM CHLORIDE 0.9% 100 ML IV SCH (20:25)
[2021-11-16] MEDS: metroNIDAZOLE INJ 500 MG/100 ML PREMIX IV SCH ×3 (01:02→17:45)
[2021-11-16 07:07] LABS: Calcium 7.7 MG/DL (8.5-10.1); Osmolality,Calculated 292.3 MOS/KG (273-304); Potassium 3.2 MMOL/L (3.5-5.1)
[2021-11-16] MEDS: INSULIN REGULAR 100 UNIT/ML SUBCUT SCH ×4 (08:53→22:10)
[2021-11-16] MEDS: PREGABALIN 100 MG CAPSULE PO SCH ×2 (08:57→22:07)
[2021-11-16] MEDS: CETIRIZINE 10 MG TABLET PO SCH ×2 (08:57→22:09)
[2021-11-16] MEDS: DOCUSATE SODIUM 100 MG CAPSULE PO SCH ×2 (08:58→22:09)
[2021-11-16] MEDS: PANTOPRAZOLE 40 MG TABLET PO SCH (08:58)
[2021-11-16] MEDS: FUROSEMIDE 40 MG TABLET PO SCH ×2 (08:58→17:46)
[2021-11-16] MEDS: VENLAFAXINE 100 MG TABLET PO SCH (08:59)
[2021-11-16] MEDS: INSULIN GLARGINE 100 UNIT/ML SUBCUT SCH ×2 (09:05→22:10)
[2021-11-16] MEDS: DESITIN 4OZ/NYSTATIN 15 GRAM MIXTURE PASTE TOP SCH ×2 (09:11→22:10)
[2021-11-16] MEDS: DICLOFENAC SODIUM 50 MG TABLET PO PRN (09:15)
[2021-11-16] MEDS: SKIN HEALING OINT (AQUAPHOR) 50 GM TUBE TOP SCH (11:56)
[2021-11-16] MEDS: POTASSIUM CHLORIDE 20 MEQ TABLET PO PRN ×2 (15:36→22:08)
[2021-11-16] MEDS: RIVAROXABAN 20 MG TABLET PO SCH (17:46)
[2021-11-16] MEDS: cefTRIAXone 1,000 MG in SODIUM CHLORIDE 0.9% 100 ML IV SCH (22:18)
[2021-11-17] MEDS: metroNIDAZOLE INJ 500 MG/100 ML PREMIX IV SCH ×2 (01:58→09:43)
[2021-11-17] MEDS: DICLOFENAC SODIUM 50 MG TABLET PO PRN (02:03)
[2021-11-17] MEDS: POTASSIUM CHLORIDE 20 MEQ TABLET PO PRN (03:24)
[2021-11-17] MEDS: INSULIN REGULAR 100 UNIT/ML SUBCUT SCH ×2 (08:09→12:57)
[2021-11-17] MEDS: INSULIN GLARGINE 100 UNIT/ML SUBCUT SCH (09:43)
[2021-11-17] MEDS: DOCUSATE SODIUM 100 MG CAPSULE PO SCH (09:43)
[2021-11-17] MEDS: FUROSEMIDE 40 MG TABLET PO SCH (09:43)
[2021-11-17] MEDS: SKIN HEALING OINT (AQUAPHOR) 50 GM TUBE TOP SCH (09:43)
[2021-11-17] MEDS: VENLAFAXINE 100 MG TABLET PO SCH (09:43)
[2021-11-17] MEDS: PREGABALIN 100 MG CAPSULE PO SCH (09:43)
[2021-11-17] MEDS: DESITIN 4OZ/NYSTATIN 15 GRAM MIXTURE PASTE TOP SCH (09:44)
[2021-11-17] MEDS: CETIRIZINE 10 MG TABLET PO SCH (09:44)
[2021-11-17] MEDS: PANTOPRAZOLE 40 MG TABLET PO SCH (09:44)
[2021-11-17] MEDS: LIDOCAINE 5% PATCH TRANSDERM PRN (09:44)
[2021-11-17 11:53] VITALS: BP 140/77
== END 2021-11-17 15:30 | disposition home health service (06) | DRG 690 ==
LOC: N.5E 15:40 → N.ED 15:40 → N.5E 11-11 03:40
PROVIDERS: ADMIT Internal Medicine; ATTEND Internal Medicine

== ENCOUNTER 2022-01-14 09:34 | Inpatient (IN) ==
[2022-01-14] MEDS ORDERED: FUROSEMIDE 100 MG/10 ML VIAL IV STA (10:35)
[2022-01-14 11:05] LABS: Basophils # 0.1 10*3/uL (0.0-0.2); Basophils % 0.8 % (0.0-0.8); Eosinophils # 0.1 10*3/uL (0.0-0.87); Eosinophils % 1.6 % (0.00-10.9); Hematocrit 29.8 VOL% (35.7-47.0); Hemoglobin 9.6 GM/DL (12.0-16.0); Immature Granulocytes % 0.3 %; Immature Granulocytes Absolute 0.02 #; Lymphocytes # 1.8 10*3/uL (1.4-4.0); Lymphocytes % 23.7 % (21.3-54.2); Mean Corpuscular HGB Conc 32.2 GM/DL (32-36); Mean Corpuscular Volume 85.6 FL (87-102); Mean Platelet Volume 10.7 FL (9.6-12.0); Monocytes # 0.4 10*3/uL (0.11-0.8); Monocytes % 4.9 % (1.7-12.7); Neutrophils % 68.7 % (38.7-73.9); Platelet Count 329 T/CUMM (130-400); Red Blood Count 3.48 MC/CUMM (3.8-5.5); Red Cell Distribution Width 13.5 % (9.3-17.3); White Blood Count 7.6 T/CUMM (4-12)
[2022-01-14 11:18] LABS: PT Patient Result 11.4 SECS (10.1-12.1)
[2022-01-14 11:24] LABS: Albumin 3.1 G/DL (3.4-5.0); Bilirubin,Total 0.5 MG/DL (0.20-1.00); Calcium 7.9 MG/DL (8.5-10.1); Osmolality,Calculated 290.5 MOS/KG (273-304); Potassium 3.5 MMOL/L (3.5-5.1); Total Protein 7.1 G/DL (6.4-8.2)
[2022-01-14] MEDS ORDERED: DEXTROSE 10% 250 ML BAG IV PRN (12:18)
[2022-01-14] MEDS ORDERED: GLUCAGON 1 MG VIAL IM PRN (12:18)
[2022-01-14] MEDS ORDERED: ONDANSETRON 4 MG/2 ML VIAL IV PRN (12:18)
[2022-01-14] MEDS ORDERED: ONDANSETRON 4 MG/2 ML VIAL IV STA (12:28)
[2022-01-14] MEDS ORDERED: MORPHINE 2 MG/1 ML SYRINGE IV STA (12:28)
[2022-01-14] MEDS: oxyCODONE/ACETAMINOPHEN 5-325 MG TABLET PO SCH ×2 (13:02→19:12)
[2022-01-14] MEDS: PREGABALIN 100 MG CAPSULE PO SCH ×2 (15:25→22:44)
[2022-01-14] MEDS: MORPHINE 2 MG/1 ML SYRINGE IV PRN ×2 (16:59→22:47)
[2022-01-14] MEDS ORDERED: POTASSIUM CHLORIDE 20 MEQ TABLET PO ONE (18:35)
[2022-01-14] MEDS ORDERED: SIMETHICONE CHEW 80 MG TABLET PO PRN (18:42)
[2022-01-14] MEDS ORDERED: cloNIDine 0.1 MG TABLET PO SCH (21:00)
[2022-01-14] MEDS: HYOSCYAMINE 0.125 MG TABLET PO SCH (22:44)
[2022-01-14] MEDS: cloNIDine 0.1 MG TABLET PO SCH (22:44)
[2022-01-14] MEDS: DOCUSATE SODIUM 100 MG CAPSULE PO SCH (22:44)
[2022-01-14] MEDS: INSULIN REGULAR 100 UNIT/ML SUBCUT SCH (22:45)
[2022-01-14] MEDS: INSULIN GLARGINE 100 UNIT/ML SUBCUT SCH (22:46)
[2022-01-15] MEDS: oxyCODONE/ACETAMINOPHEN 5-325 MG TABLET PO SCH ×4 (01:48→22:41)
[2022-01-15 05:45] LABS: Basophils # 0.1 10*3/uL (0.0-0.2); Basophils % 1.1 % (0.0-0.8); Eosinophils # 0.2 10*3/uL (0.0-0.87); Eosinophils % 3.2 % (0.00-10.9); Hematocrit 27.3 VOL% (35.7-47.0); Hemoglobin 8.7 GM/DL (12.0-16.0); Immature Granulocytes % 0.3 %; Immature Granulocytes Absolute 0.02 #; Lymphocytes # 2.5 10*3/uL (1.4-4.0); Lymphocytes % 33.3 % (21.3-54.2); Mean Corpuscular HGB Conc 31.9 GM/DL (32-36); Mean Corpuscular Volume 86.4 FL (87-102); Mean Platelet Volume 10.6 FL (9.6-12.0); Monocytes # 0.6 10*3/uL (0.11-0.8); Monocytes % 7.5 % (1.7-12.7); Neutrophils % 54.6 % (38.7-73.9); Platelet Count 308 T/CUMM (130-400); Red Blood Count 3.16 MC/CUMM (3.8-5.5); Red Cell Distribution Width 13.5 % (9.3-17.3); White Blood Count 7.5 T/CUMM (4-12)
[2022-01-15 06:06] LABS: Albumin 2.7 G/DL (3.4-5.0); Bilirubin,Total 0.5 MG/DL (0.20-1.00); Calcium 7.7 MG/DL (8.5-10.1); Osmolality,Calculated 277.5 MOS/KG (273-304); Potassium 3.1 MMOL/L (3.5-5.1); Total Protein 6.5 G/DL (6.4-8.2)
[2022-01-15 06:42] LABS: Platelet Estimate Adequate
[2022-01-15] MEDS ORDERED: LACTULOSE 20 GM/30 ML UDCUP PO ONE (08:46)
[2022-01-15] MEDS: INSULIN REGULAR 100 UNIT/ML SUBCUT SCH ×4 (10:15→22:39)
[2022-01-15] MEDS: cloNIDine 0.1 MG TABLET PO SCH ×3 (10:25→22:39)
[2022-01-15] MEDS: VENLAFAXINE 75 MG TABLET PO SCH (10:25)
[2022-01-15] MEDS: PANTOPRAZOLE 40 MG TABLET PO SCH (10:25)
[2022-01-15] MEDS: FUROSEMIDE 40 MG TABLET PO SCH (10:26)
[2022-01-15] MEDS: HYOSCYAMINE 0.125 MG TABLET PO SCH ×2 (10:26→22:40)
[2022-01-15] MEDS: PREGABALIN 100 MG CAPSULE PO SCH ×3 (10:26→22:40)
[2022-01-15] MEDS: amLODIPine 5 MG TABLET PO SCH (10:26)
[2022-01-15] MEDS: DOCUSATE SODIUM 100 MG CAPSULE PO SCH ×2 (10:26→22:40)
[2022-01-15] MEDS: INSULIN GLARGINE 100 UNIT/ML SUBCUT SCH ×2 (10:29→22:41)
[2022-01-15] MEDS ORDERED: POTASSIUM CHLORIDE 20 MEQ TABLET PO ONE (20:00)
[2022-01-16] MEDS: oxyCODONE/ACETAMINOPHEN 5-325 MG TABLET PO SCH ×4 (01:43→19:09)
[2022-01-16 06:48] LABS: Basophils # 0.1 10*3/uL (0.0-0.2); Basophils % 0.9 % (0.0-0.8); Eosinophils # 0.4 10*3/uL (0.0-0.87); Eosinophils % 6.4 % (0.00-10.9); Hematocrit 27.8 VOL% (35.7-47.0); Hemoglobin 8.5 GM/DL (12.0-16.0); Immature Granulocytes % 0.4 %; Immature Granulocytes Absolute 0.03 #; Lymphocytes # 2.6 10*3/uL (1.4-4.0); Lymphocytes % 37.3 % (21.3-54.2); Mean Corpuscular HGB Conc 30.6 GM/DL (32-36); Mean Corpuscular Volume 88.3 FL (87-102); Mean Platelet Volume 10.6 FL (9.6-12.0); Monocytes # 0.5 10*3/uL (0.11-0.8); Platelet Count 315 T/CUMM (130-400); Red Blood Count 3.15 MC/CUMM (3.8-5.5); Red Cell Distribution Width 13.8 % (9.3-17.3); White Blood Count 6.8 T/CUMM (4-12)
[2022-01-16 07:12] LABS: Calcium 7.4 MG/DL (8.5-10.1); Osmolality,Calculated 281.4 MOS/KG (273-304); Potassium 3.6 MMOL/L (3.5-5.1)
[2022-01-16] MEDS: HYOSCYAMINE 0.125 MG TABLET PO SCH ×2 (09:47→21:51)
[2022-01-16] MEDS: DOCUSATE SODIUM 100 MG CAPSULE PO SCH ×2 (09:47→21:51)
[2022-01-16] MEDS: PREGABALIN 100 MG CAPSULE PO SCH ×3 (09:47→21:51)
[2022-01-16] MEDS: FUROSEMIDE 40 MG TABLET PO SCH (09:47)
[2022-01-16] MEDS: PANTOPRAZOLE 40 MG TABLET PO SCH (09:48)
[2022-01-16] MEDS: amLODIPine 5 MG TABLET PO SCH (09:48)
[2022-01-16] MEDS: cloNIDine 0.1 MG TABLET PO SCH ×3 (09:48→21:51)
[2022-01-16] MEDS: INSULIN GLARGINE 100 UNIT/ML SUBCUT SCH ×2 (09:51→21:51)
[2022-01-16] MEDS: VENLAFAXINE 75 MG TABLET PO SCH (09:51)
[2022-01-16] MEDS: INSULIN REGULAR 100 UNIT/ML SUBCUT SCH ×4 (11:47→21:51)
[2022-01-16] MEDS: MORPHINE 2 MG/1 ML SYRINGE IV PRN (12:19)
[2022-01-17] MEDS: oxyCODONE/ACETAMINOPHEN 5-325 MG TABLET PO SCH ×4 (03:37→20:41)
[2022-01-17] MEDS: MORPHINE 2 MG/1 ML SYRINGE IV PRN ×2 (05:25→21:40)
[2022-01-17 06:03] LABS: Osmolality,Calculated 272.1 MOS/KG (273-304); Potassium 3.9 MMOL/L (3.5-5.1)
[2022-01-17 06:34] LABS: Basophils # 0.1 10*3/uL (0.0-0.2); Eosinophils # 0.5 10*3/uL (0.0-0.87); Eosinophils % 6.6 % (0.00-10.9); Hemoglobin 8.4 GM/DL (12.0-16.0); Immature Granulocytes % 0.1 %; Immature Granulocytes Absolute 0.01 #; Lymphocytes # 3.2 10*3/uL (1.4-4.0); Lymphocytes % 45.6 % (21.3-54.2); Mean Corpuscular HGB Conc 31.1 GM/DL (32-36); Mean Corpuscular Volume 89.4 FL (87-102); Monocytes # 0.6 10*3/uL (0.11-0.8); Monocytes % 8.5 % (1.7-12.7); Neutrophils % 38.2 % (38.7-73.9); Platelet Count 295 T/CUMM (130-400); Red Blood Count 3.02 MC/CUMM (3.8-5.5); Red Cell Distribution Width 13.7 % (9.3-17.3)
[2022-01-17] MEDS: INSULIN REGULAR 100 UNIT/ML SUBCUT SCH ×4 (08:07→20:41)
[2022-01-17 08:11] LABS: Eosinophils 9 % (0-10); Lymphocytes 40 % (20-55); Microcytosis Slight; Total Cells Counted 100
[2022-01-17 08:12] LABS: Platelet Estimate Normal
[2022-01-17] MEDS: INSULIN GLARGINE 100 UNIT/ML SUBCUT SCH ×2 (08:21→20:39)
[2022-01-17] MEDS: VENLAFAXINE 75 MG TABLET PO SCH (08:22)
[2022-01-17] MEDS: PREGABALIN 100 MG CAPSULE PO SCH ×3 (08:22→20:40)
[2022-01-17] MEDS: HYOSCYAMINE 0.125 MG TABLET PO SCH ×2 (08:22→20:40)
[2022-01-17] MEDS: DOCUSATE SODIUM 100 MG CAPSULE PO SCH ×2 (08:23→20:39)
[2022-01-17] MEDS: cloNIDine 0.1 MG TABLET PO SCH ×3 (08:23→20:40)
[2022-01-17] MEDS: FUROSEMIDE 40 MG TABLET PO SCH (08:23)
[2022-01-17] MEDS: amLODIPine 5 MG TABLET PO SCH (08:24)
[2022-01-17] MEDS: PANTOPRAZOLE 40 MG TABLET PO SCH (08:24)
[2022-01-17] MEDS: ENOXAPARIN 40 MG/0.4 ML SYRINGE SUBCUT SCH (12:31)
[2022-01-18] MEDS: oxyCODONE/ACETAMINOPHEN 5-325 MG TABLET PO SCH ×4 (00:29→21:25)
[2022-01-18] MEDS: MORPHINE 2 MG/1 ML SYRINGE IV PRN (01:20)
[2022-01-18 05:45] LABS: Basophils # 0.1 10*3/uL (0.0-0.2); Eosinophils # 0.4 10*3/uL (0.0-0.87); Eosinophils % 6.3 % (0.00-10.9); Hemoglobin 8.8 GM/DL (12.0-16.0); Immature Granulocytes % 0.2 %; Immature Granulocytes Absolute 0.01 #; Lymphocytes # 2.6 10*3/uL (1.4-4.0); Lymphocytes % 41.6 % (21.3-54.2); Mean Corpuscular HGB Conc 31.4 GM/DL (32-36); Mean Corpuscular Volume 86.7 FL (87-102); Mean Platelet Volume 10.6 FL (9.6-12.0); Monocytes # 0.5 10*3/uL (0.11-0.8); Monocytes % 8.7 % (1.7-12.7); Neutrophils % 42.2 % (38.7-73.9); Platelet Count 309 T/CUMM (130-400); Red Blood Count 3.23 MC/CUMM (3.8-5.5); Red Cell Distribution Width 13.6 % (9.3-17.3); White Blood Count 6.2 T/CUMM (4-12)
[2022-01-18 06:36] LABS: Calcium 7.1 MG/DL (8.5-10.1); Osmolality,Calculated 284.5 MOS/KG (273-304); Potassium 3.6 MMOL/L (3.5-5.1)
[2022-01-18] MEDS: FUROSEMIDE 40 MG TABLET PO SCH (08:12)
[2022-01-18] MEDS: PREGABALIN 100 MG CAPSULE PO SCH ×3 (08:12→21:24)
[2022-01-18] MEDS: cloNIDine 0.1 MG TABLET PO SCH ×3 (08:13→21:23)
[2022-01-18] MEDS: HYOSCYAMINE 0.125 MG TABLET PO SCH ×2 (08:13→21:23)
[2022-01-18] MEDS: PANTOPRAZOLE 40 MG TABLET PO SCH (08:13)
[2022-01-18] MEDS: DOCUSATE SODIUM 100 MG CAPSULE PO SCH ×2 (08:13→21:24)
[2022-01-18] MEDS: amLODIPine 5 MG TABLET PO SCH (08:13)
[2022-01-18] MEDS: VENLAFAXINE 75 MG TABLET PO SCH (08:13)
[2022-01-18] MEDS: INSULIN GLARGINE 100 UNIT/ML SUBCUT SCH ×2 (08:16→22:27)
[2022-01-18] MEDS: INSULIN REGULAR 100 UNIT/ML SUBCUT SCH ×4 (08:16→22:27)
[2022-01-18] MEDS: ENOXAPARIN 40 MG/0.4 ML SYRINGE SUBCUT SCH (12:04)
[2022-01-18] MEDS ORDERED: ALUM/MAG/SIMETH/LIDO VISC 1:1 30 ML BOTTLE PO ONE (14:04)
[2022-01-19] MEDS: oxyCODONE/ACETAMINOPHEN 5-325 MG TABLET PO SCH ×4 (02:52→18:03)
[2022-01-19] MEDS: ACETAMINOPHEN 325 MG TABLET PO PRN ×2 (03:55→21:58)
[2022-01-19 05:27] LABS: Basophils % 0.7 % (0.0-0.8); Eosinophils # 0.3 10*3/uL (0.0-0.87); Eosinophils % 5.4 % (0.00-10.9); Hematocrit 28.3 VOL% (35.7-47.0); Hemoglobin 8.8 GM/DL (12.0-16.0); Immature Granulocytes % 0.2 %; Immature Granulocytes Absolute 0.01 #; Lymphocytes # 1.6 10*3/uL (1.4-4.0); Lymphocytes % 28.8 % (21.3-54.2); Mean Corpuscular HGB Conc 31.1 GM/DL (32-36); Mean Corpuscular Volume 87.3 FL (87-102); Mean Platelet Volume 10.6 FL (9.6-12.0); Monocytes # 0.6 10*3/uL (0.11-0.8); Monocytes % 10.3 % (1.7-12.7); Neutrophils % 54.6 % (38.7-73.9); Platelet Count 283 T/CUMM (130-400); Red Blood Count 3.24 MC/CUMM (3.8-5.5); Red Cell Distribution Width 13.6 % (9.3-17.3); White Blood Count 5.4 T/CUMM (4-12)
[2022-01-19 05:51] LABS: Calcium 7.4 MG/DL (8.5-10.1); Osmolality,Calculated 285.4 MOS/KG (273-304); Potassium 3.7 MMOL/L (3.5-5.1)
[2022-01-19] MEDS: DOCUSATE SODIUM 100 MG CAPSULE PO SCH ×2 (08:21→21:50)
[2022-01-19] MEDS: cloNIDine 0.1 MG TABLET PO SCH ×3 (08:21→21:50)
[2022-01-19] MEDS: HYOSCYAMINE 0.125 MG TABLET PO SCH ×2 (08:21→21:51)
[2022-01-19] MEDS: FUROSEMIDE 40 MG TABLET PO SCH (08:21)
[2022-01-19] MEDS: amLODIPine 5 MG TABLET PO SCH (08:21)
[2022-01-19] MEDS: PREGABALIN 100 MG CAPSULE PO SCH ×3 (08:21→21:51)
[2022-01-19] MEDS: PANTOPRAZOLE 40 MG TABLET PO SCH (08:22)
[2022-01-19] MEDS: POLYETHYLENE GLYCOL POWDER 17 GM PACK PO SCH (08:22)
[2022-01-19] MEDS: INSULIN GLARGINE 100 UNIT/ML SUBCUT SCH ×2 (08:26→21:50)
[2022-01-19] MEDS: INSULIN REGULAR 100 UNIT/ML SUBCUT SCH ×4 (09:16→23:10)
[2022-01-19] MEDS: VENLAFAXINE 75 MG TABLET PO SCH ×2 (09:29→16:59)
[2022-01-19] MEDS: ENOXAPARIN 40 MG/0.4 ML SYRINGE SUBCUT SCH (12:10)
[2022-01-19] MEDS ORDERED: BISACODYL 5 MG TABLET PO ONE (14:31)
[2022-01-20] MEDS: oxyCODONE/ACETAMINOPHEN 5-325 MG TABLET PO SCH ×4 (01:22→19:27)
[2022-01-20 05:13] LABS: Basophils # 0.1 10*3/uL (0.0-0.2); Basophils % 0.8 % (0.0-0.8); Eosinophils # 0.3 10*3/uL (0.0-0.87); Hematocrit 28.4 VOL% (35.7-47.0); Hemoglobin 8.8 GM/DL (12.0-16.0); Immature Granulocytes % 0.2 %; Immature Granulocytes Absolute 0.01 #; Lymphocytes # 2.2 10*3/uL (1.4-4.0); Lymphocytes % 34.9 % (21.3-54.2); Mean Corpuscular Volume 87.1 FL (87-102); Mean Platelet Volume 10.4 FL (9.6-12.0); Monocytes # 0.7 10*3/uL (0.11-0.8); Monocytes % 10.7 % (1.7-12.7); Neutrophils % 49.4 % (38.7-73.9); Platelet Count 297 T/CUMM (130-400); Red Blood Count 3.26 MC/CUMM (3.8-5.5); Red Cell Distribution Width 13.6 % (9.3-17.3); White Blood Count 6.2 T/CUMM (4-12)
[2022-01-20 05:29] LABS: Calcium 7.5 MG/DL (8.5-10.1); Osmolality,Calculated 286.3 MOS/KG (273-304); Potassium 3.4 MMOL/L (3.5-5.1)
[2022-01-20] MEDS: POTASSIUM CHLORIDE 20 MEQ TABLET PO PRN ×4 (07:10→18:17)
[2022-01-20] MEDS: INSULIN REGULAR 100 UNIT/ML SUBCUT SCH ×4 (08:16→21:23)
[2022-01-20] MEDS: POLYETHYLENE GLYCOL POWDER 17 GM PACK PO SCH (08:29)
[2022-01-20] MEDS: DOCUSATE SODIUM 100 MG CAPSULE PO SCH ×2 (08:29→21:23)
[2022-01-20] MEDS: amLODIPine 5 MG TABLET PO SCH (08:30)
[2022-01-20] MEDS: cloNIDine 0.1 MG TABLET PO SCH ×3 (08:30→21:23)
[2022-01-20] MEDS: VENLAFAXINE 75 MG TABLET PO SCH (08:30)
[2022-01-20] MEDS: PANTOPRAZOLE 40 MG TABLET PO SCH (08:30)
[2022-01-20] MEDS: INSULIN GLARGINE 100 UNIT/ML SUBCUT SCH ×2 (08:31→21:55)
[2022-01-20] MEDS: HYOSCYAMINE 0.125 MG TABLET PO SCH ×2 (08:40→21:23)
[2022-01-20] MEDS: FUROSEMIDE 40 MG TABLET PO SCH (08:40)
[2022-01-20] MEDS: PREGABALIN 100 MG CAPSULE PO SCH ×3 (08:40→21:23)
[2022-01-20] MEDS: SKIN HEALING OINT (AQUAPHOR) 50 GM TUBE TOP PRN (10:27)
[2022-01-20] MEDS: ENOXAPARIN 40 MG/0.4 ML SYRINGE SUBCUT SCH (13:19)
[2022-01-20] MEDS ORDERED: BISACODYL 5 MG TABLET PO ONE (13:54)
[2022-01-20] MEDS: BISACODYL 5 MG TABLET PO SCH (21:26)
[2022-01-21] MEDS: oxyCODONE/ACETAMINOPHEN 5-325 MG TABLET PO SCH ×4 (01:29→19:34)
[2022-01-21] MEDS: INSULIN REGULAR 100 UNIT/ML SUBCUT SCH ×4 (08:12→21:39)
[2022-01-21] MEDS: INSULIN GLARGINE 100 UNIT/ML SUBCUT SCH ×2 (08:12→21:39)
[2022-01-21] MEDS: cloNIDine 0.1 MG TABLET PO SCH ×4 (09:06→21:38)
[2022-01-21] MEDS: BISACODYL 5 MG TABLET PO SCH ×2 (09:06→21:39)
[2022-01-21] MEDS: VENLAFAXINE 75 MG TABLET PO SCH (09:06)
[2022-01-21] MEDS: amLODIPine 5 MG TABLET PO SCH ×2 (09:07→09:21)
[2022-01-21] MEDS: FUROSEMIDE 40 MG TABLET PO SCH (09:07)
[2022-01-21] MEDS: PANTOPRAZOLE 40 MG TABLET PO SCH (09:07)
[2022-01-21] MEDS: PREGABALIN 100 MG CAPSULE PO SCH ×3 (09:07→21:38)
[2022-01-21] MEDS: DOCUSATE SODIUM 100 MG CAPSULE PO SCH ×2 (09:07→21:39)
[2022-01-21] MEDS: HYOSCYAMINE 0.125 MG TABLET PO SCH ×2 (09:07→21:38)
[2022-01-21] MEDS: POLYETHYLENE GLYCOL POWDER 17 GM PACK PO SCH (09:10)
[2022-01-21] MEDS: ENOXAPARIN 40 MG/0.4 ML SYRINGE SUBCUT SCH (13:22)
[2022-01-21] MEDS ORDERED: BISACODYL 10 MG SUPP RECTAL ONE (13:53)
[2022-01-21] MEDS: LACTULOSE 20 GM/30 ML UDCUP PO SCH (19:30)
[2022-01-21] MEDS: SKIN HEALING OINT (AQUAPHOR) 50 GM TUBE TOP PRN (21:44)
[2022-01-22] MEDS: oxyCODONE/ACETAMINOPHEN 5-325 MG TABLET PO SCH (00:44)
[2022-01-22] MEDS: LACTULOSE 20 GM/30 ML UDCUP PO SCH ×2 (02:45→09:51)
[2022-01-22] MEDS: INSULIN REGULAR 100 UNIT/ML SUBCUT SCH (08:04)
[2022-01-22 08:36] VITALS: BP 124/65
[2022-01-22] MEDS: amLODIPine 5 MG TABLET PO SCH (08:56)
[2022-01-22] MEDS: POLYETHYLENE GLYCOL POWDER 17 GM PACK PO SCH (08:56)
[2022-01-22] MEDS: VENLAFAXINE 75 MG TABLET PO SCH (08:56)
[2022-01-22] MEDS: HYOSCYAMINE 0.125 MG TABLET PO SCH (08:56)
[2022-01-22] MEDS: PREGABALIN 100 MG CAPSULE PO SCH (08:56)
[2022-01-22] MEDS: BISACODYL 5 MG TABLET PO SCH (08:56)
[2022-01-22] MEDS: PANTOPRAZOLE 40 MG TABLET PO SCH (08:58)
[2022-01-22] MEDS: FUROSEMIDE 40 MG TABLET PO SCH (08:58)
[2022-01-22] MEDS: cloNIDine 0.1 MG TABLET PO SCH (08:58)
[2022-01-22] MEDS: DOCUSATE SODIUM 100 MG CAPSULE PO SCH (08:58)
[2022-01-22] MEDS: INSULIN GLARGINE 100 UNIT/ML SUBCUT SCH (08:59)
[2022-01-22] MEDS ORDERED: FERROUS SULFATE 325 MG TABLET PO SCH (10:30)
== END 2022-01-22 11:58 | DRG 392 ==
LOC: N.EDINP 09:34 → N.ED 09:34 → N.TELES 12:51
PROVIDERS: ADMIT Internal Medicine; ATTEND Internal Medicine